=== PATIENT | male | born 1940 | race Caucasian/White ===

== ENCOUNTER 2019-05-12 07:41 | Outpatient (CLI) | payer MEDICARE, SELFPAY ==
--- NOTE | 2019-05-12 08:17 | ECG_ITS ---
NAME OF STUDY: LEXISCAN SESTAMIBI STRESS TEST INDICATION: Chest Pain PROCEDURE: At the baseline, the blood pressure was 156/89 mmHg, oxygen saturation 91% with a heart rate of 55 bpm. The electrocardiogram showed sinus bradycardia with nonspecific ST-T wave changes. Possible old anteroseptal infarct. The Lexiscan was infused over a period of 20 seconds. A total of 0.4 milligrams of Lexiscan was infused. The stress phase was continued for a total of 5 minutes. Heart rate at the end of the stress phase was 71 bpm, oxygen saturation 95% with a blood pressure 153/72 mmHg. The EKG at the peak infusion revealed no significant ST-T wave changes. Interpretation limited by baseline artifact. Sestamibi was injected 20 seconds after the Lexiscan infusion. Blood pressure at the end of the recovery phase was 162/99 mmHg, oxygen saturation 98 bpm with a heart rate of 82 beats per minute. CONCLUSION: 1. No significant EKG changes with the LexiScan infusion. Interpretation limited by baseline artifact. 2. No LexiScan induced chest pain or cardiac arrhythmia. 3. Normal blood pressure and heart rate response. 4. Sestamibi/sestamibi perfusion scan pending; see separate report. Electronically Signed On 05-12-2019 16:45:29 EDGE STAINER by Anu Casillas M.D. [email or web address]
--- NOTE | 2019-05-12 08:18 | NMCV_ITS ---
NM kim perf SPECT r/s* [id number] BlackwellJeremiah Age: 78 Gender: M : 1940 Exam Date: 05/12/2019 08:18 Ordering Phys: Judy Gama Technologist: LANA Burton Exam Location: [facility] Indications: ATHEROSCLEROTIC HEART DISEASE OF [place] CORONARY ARTERY STRESS TEST [facility] IMAGE PROTOCOL Rest/Stress 1 Lexiscan Day Radiopharmaceutical Dose (mCi) Administration Site Administered by Rest: Tc-99m 10.8 IV LANA Silva Sestamibi Stress:Tc-99m 32.4 IV LANA Silva Sestamibi Rest: 12-May-2019 60 Discovery 630 Stress: 12-May-2019 30 Discovery 630 0.4mg Lexiscan. Images obtained in supine and prone position. SPECT RESULTS Technical Quality: Excellent Raw Data Analysis: Normal Image Corrections: No attenuation or motion correction applied Summed Stress Score: 9 Summed Rest Score: 3 Summed Difference Score: 6 PERFUSION FINDINGS Medium-size area of patchy decreased tracer uptake noted in basal to distal inferior and inferolateral wall on both rest and stress images suggestive of old myocardial infarction versus artifact. FUNCTIONAL RESULTS (calculated via Gated SPECT) Stress Image LV EF (%): 68 Stress EDV (mL):78 TID: 1 Stress ESV (mL):25 Rest Image LV EF (%): 68 FUNCTIONAL FINDINGS: There is normal left ventricular systolic function. IMPRESSIONS This study is negative for ischemia. EKG segment will be documented separately. Vanessa Schofield MD (Electronically Signed) Final Date: 12 May 2019 11:54 S
[2019-05-12 08:21] VITALS: BMI 28.3
[2019-05-12] MEDS: regadenoson 0.4 Mg/5 ml Syringe IVP (09:40)
[2019-05-12 09:41] VITALS: BP 151/89; PULSE 72
[2019-05-12] MEDS: aminophylline 25 mg/mL SDV 10 mL IVP (09:46)
== END 2019-05-12 07:42 | disposition home or self-care (01) ==
PROVIDERS: Family Provider Family Medicine; PCP Family Medicine; Visit Provider Nurse Practitioner Family
DX: I25.10 Atherosclerotic heart disease of native coronary artery without angina pectoris (principal); R07.9 Chest pain, unspecified
CPT/HCPCS: 78452; 93017; 96374; A9500; J0280; J2785

== ENCOUNTER 2019-07-27 16:36 | Inpatient (IN) | payer MEDICARE, SELFPAY ==
[2019-07-27] VITALS (28 sets, daily range): BP systolic 98–162; BP diastolic 55–97; PULSE 56–78; RESP 12–28; TEMP 36.2–36.6; O2SAT 63–99; BMI 27.1
--- NOTE | 2019-07-27 16:38 | ECG_ITS ---
Measurements Intervals [place] Rate: 75 P: [place]: 0 QRS: 24 QRSD: 86 T: 54 QT: 381 QTc: 427 Sinus rhythm with artifact SEPTAL MYOCARDIAL INFARCTION , OF INDETERMINATE AGE [40+ ms Q WAVE IN V1/V2] MARKED ST ELEVATION, CONSIDER LATERAL INJURY [MARKED ST ELEVATION W/O NORMALLY INFLECTED T WAVE IN I/aVL/V5/V6] MARKED ST ELEVATION, CONSIDER INFERIOR INJURY [MARKED ST ELEVATION W/O NORMAL NORMALLY INF INFLECTED T WAVE IN II/aVF] ACUTE OK Compared to ECG 05/01/2018 15:09:25 ST (T wave) deviation now present Sinus rhythm no longer present Myocardial infarct finding still present Electronically Signed On 07-27-2019 19:46:38 CDT by Vanessa Schofield M.D. [email or web address]
[2019-07-27] MEDS: sodium chloride 0.9% 500 ML 999 ML IV (16:49)
[2019-07-27] MEDS: sodium chloride 0.9% 1,000 ML 999 ML IV (16:50)
[2019-07-27] MEDS: ondansetron 2 mg/ML SDV 2 mL 4 MG IVP ×2 (16:50→22:03)
[2019-07-27] MEDS: heparin 5,000 unit/mL INJ 1 mL 4000 UNIT IVP (16:51)
[2019-07-27] MEDS: metoprolol tartrate 1 mg/1 mL SDV 5 mL 5 MG IV (16:51)
[2019-07-27] MEDS: clopidogrel 300 mg Tablet 600 MG PO (16:51)
[2019-07-27] MEDS: morphine 4 mg/mL SDV 1 mL IVP (16:51)
--- NOTE | 2019-07-27 16:53 | PC.NURSE ---
PT STATES TOOK 325MG ASA PRIOR TO EMS ARRIVAL
--- NOTE | 2019-07-27 16:55 | XACV_ITS ---
Exam Room: [facility] Ht: 170 cm Wt: 78 kg BSA: 1.94 m2 Gender: Male : 1940 Any Known Allergies: Morphine Exam Priority: Routine Indication(s): - Acute inferior NV Procedure(s): Procedure Description: Diagnostic procedure Procedure Description: PCI procedure Procedure Description: Drug Eluting Coronary Stent Procedure Description: PTCA Procedure Description: Coronary Angiography Diagnostic Cath Status: Emergency Diagnostic Findings LM has 0% stenosis. pLAD: Severe 100% stenosis, ISAAC: 0 flow. pCIRC: Severe 100% stenosis, ISAAC: 0 flow. pRCA to mRCA: Severe 100% stenosis, ISAAC: 0 flow. RPDA: Severe 95% stenosis, ISAAC: 0 flow. Three grafts visualized. QUICK to dLAD: patent. SVG to 1st OM: 100% stenosis, ISAAC: 0 flow. SVG to RPDA: 80% stenosis, ISAAC: 2 flow. SVG to RPDA: 95% stenosis, ISAAC: 3 flow. Coronary angiography shows right dominance. PCI Status: Emergency PCI Indication: Immediate PCI for STEMI Interventional Findings RPDA: 95% stenosis treated with Drug Eluting Stent. 0% residual stenosis, ISAAC: 3 flow. SVG to RPDA: 80% stenosis treated with Drug Eluting Stent. 0% residual stenosis, ISAAC: 3 flow. For dynamic EKG changes and ST elevation in the inferior leads patient was taken to the Pump Assembler . He was found to have proximal 80% and distal 95 to 99% SVG to RPDA . Both lesions were treated with placement of drug-eluting stents as defined in the main body of the note. SVG to obtuse marginal is chronically occluded by QUICK to LAD was patent. Patient chest pain and EKG changes were resolved. He was taken back to the [facility]. Excellent angiographic result with ISAAC-3 flow was restored in SVG to PDA. Conclusions There is severe coronary artery disease with three vessel disease. one graft patent, and two grafts diseased. Patient has prior CABG. RPDA was treated with Drug Eluting Stent. SVG to RPDA was treated with Drug Eluting Stent. Recommendations 1-Return to inpatient for close monitoring and routine cath care 2-Risk factor modification for secondary prevention 3-Statin and aspirin 81 mg life--long, if tolerated 4-Patient was pre-loaded with 600 mg of Plavix, continue Plavix 75mg p.o. daily for at least one year. We will assess at the end of one year again to continue if further or not 5-Continue optimal medical management 6-Follow up with Dr. Schofield in four weeks and your primary care in 10 days . Diagnostic RX Recommendation: PCI w/o planned CABG Pressures Phase:Rest AO : 177 mmHg / 103 mmHg ( 134 mmHg ) @ 12:28:00 PM 191 mmHg / 111 mmHg ( 145 mmHg ) @ 12:37:00 PM 174 mmHg / 104 mmHg ( 136 mmHg ) @ 1:01:00 PM Clinical Evaluation EBL: 5mL-10mL Procedural Details Procedure Consent Obtained. Pre-Procedure Time Out. Identified patient by full name and date of as verbalized by the patient/guarantor. Does the consent match the physician's order: Yes. Accurate & Complete Informed Consent: Yes. If H&P is completed, is and addenduem needed: No; If yes, is the addendum complete: No. Relevant Radiology Images available: N/A Emergent. The risks, benefits, and alternatives of sedation and/or procedure were discussed by physician. The patient agrees to continue. Procedure started. [facility] Clinical Fraility Score: 4: Vulnerable. Pump Assembler Indications: ACS <= 24 hours. Chest Pain Symptom Assessment: Typical Angina Symptoms. Cardiovascular Instability: No. Correct patient, site and procedure confirmed by cath team. Current diagnosis: STEMI. PERRLA. Strong, equal hand body maker machine setter bilaterally. Lungs clear x 5 lobes. Patient's family unavailable due to current Covid-19 restrictions. Equipment: 6F - Femoral. Cardiac Cath Pack. ACIST Manifold Kit Model BT 2000. Heparinized Saline (2 units/mL), 1000 mL bag. Kit, Micropuncture. IV Site on Arrival: 18 gauge in the left anticubital. IV Site on Arrival: 22 gauge in the right hand. IV Site on Arrival: 20 gauge in the right anticubital. IV Fluids: 0.9% NaCl at KVO. 1000 mL infused prior to clinical lab assistant. Pre Procedural Pulses: bilateral dorsalis pedis was 1+. Pre Procedural Pulses: bilateral posterior tibial was 1+. Oxygen started at 2liters/min via nasal canula. bilateral groins was prepped with chloroprep then draped in the usual sterile fashion. Physician notified. Baseline sample Acquired. HR: 60 BPM. Physician arrived. Current Diagnosis : STEMI. Physician scrubbed in. Immediate Pre-Procedure Time Out. Correct Patient: Yes; Correct Procedure: Yes; Correct Site: Yes; Correct Patient Position: Yes; Correct Supplies: Yes; Dried Flammable Prep: Yes; Blood Products Available: N/A. Lidocaine 1% infiltrated to the right groin. Arterial access obtained with micropuncture set. PCI Indication: STEMI. 6 polish JR 4 guide catheter was inserted over the wire. 6 polish JR 4 guide catheter was removed over the wire. A 6 polish JL4 catheter in over wire. Multiple views taken of left coronary artery. A 6 polish JR4 catheter in over wire. SVG to OM occluded. SVG's to RCA visualized. A 6 polish JR4 catheter out over wire. [place] guidewire was advanced through the guide catheter to lesion in the SVG--> RCA. [place] Wire out. Runthrough guidewire was advanced through the guide catheter to lesion in the SVG --> RCA. Inflation Number : 1 A T Olivier SAURABH 2.25X12 QUINN -Lot Number# [id number] was prepped and advanced across the Aorta Right -> Prox RCA. The stent was deployed at 12 ESTHELA for 0:11 seconds. stent balloon out. Inflation Number : 2 A T Olivier SAURABH 3.5X26 QUINN -Lot Number# [id number] prepped and advanced across the Aorta Right -> Prox RCA. The stent was deployed at 14 ESTHELA for 0:23 seconds. Inflation number : 3 A HOLLIE MAJANO EUPHORA RX [id number] BALLOON was prepped and advanced across the Aorta Right -> Prox RCA , then inflated to 16 ESTHELA for 0:22 seconds. Inflation number: 4 The MDT GRETEL EUPHORA RX [id number] BALLOON was reinflated across the Aorta Right -> Prox RCA, to 20 ESTHELA for 0:25 seconds. Results checked. PCI Indication : Immediate PCI for STEMI. Redirecting the guide cath to the SVG --> OM. Runthrough guidewire out. Guide cath out over the wire. ACT drawn. Results 187 seconds. Therapeutic limits - pre-heparin administration 90-150 seconds and monitoring heparin during a vascular procedure >250 seconds. QUICK to LAD visualized. Catheter out over the wire. Physician scrubbed out. Sheath(s) sutured into position with 2-0 silk and sterile 4x4's and Op-site applied over the site. No oozing or signs and symptoms of hematoma noted. Arterial sheath flushed and connected to tranducer and pressure bag with heparinized saline. Post Procedure: Pulses reassessed and unchanged. PERRLA. Strong, equal hand body maker machine setter bilaterally. No VTE prophylaxis required. Medication's Wasted: Lidocaine 1% = 10 mL. Medication's Wasted: Heparin = 3000 units. Medication's Wasted: Cardene = 25 mg. Total IV fluids: 400 mL. Post-op diagnosis: STEMI. SVG--> Subtotally occluded. Complications: none. Estimated blood loss: 5mL-10mL. Procedure completed. Patient transferred by bed to ICU. Vital chart was stopped. Site: Right Femoral artery Sheath Size: 6 Fr Hemostasis Success: Unsuccessful Procedure Medications Start: 5:22 PM Stop: 5:22 PM Medication: Versed Amount: 1 mg Route: I.V. Start: 5:23 PM Stop: 5:23 PM Medication: Fentanyl Amount: 50 mcg Route: I.V. Start: 5:26 PM Stop: 5:26 PM Medication: Heparin Amount: 4000 units Route: I.V. Start: 5:38 PM Stop: 5:38 PM Medication: Versed Amount: 1 mg Route: I.V. Start: 5:38 PM Stop: 5:38 PM Medication: Fentanyl Amount: 50 mcg Route: I.V. Start: 5:41 PM Stop: 5:41 PM Medication: Aggrastat 12.5 mg/250 mL Amount: 40 ml Route: I.V. bolus Start: 5:46 PM Stop: 5:46 PM Medication: Aggrastat 12.5 mg/250 mL Amount: 14.4 ml/hr Route: I.V. drip Start: 6:02 PM Stop: 6:02 PM Medication: Versed Amount: 1 mg Route: I.V. Start: 6:11 PM Stop: 6:11 PM Medication: Heparin Amount: 2000 units Route: I.V. Start: 6:26 PM Stop: 6:26 PM Medication: Zofran (ondansetron) Amount: 4 mg Route: I.V. I, the attending physician, have reviewed and verified all procedure medications. Yes, all medications given per verbal order History/Risk Factors Hypertension: Yes Dyslipidemia: No Peripheral Arterial Disease (PAD): Yes Myocardial Infarction (NV): No Obesity: No Renal Disease: No Tobacco Use: Current/Recent(w/in 1 year) Prior Interventions PCI: No CABG: Yes Valve Surgery: No Report Signatures Finalized by:Vanessa Schofield MD on 08/10/2019 1:02:51 PM
--- NOTE | 2019-07-27 16:57 | ED_ITS ---
HPI - Chest Pain General: Chief Complaint: Chest Pain Stated Complaint: CHEST PAIN Time Seen by Provider: 07/27/19 16:57 History of Present Illness: HPI narrative: 79-year-old male was seen emergently on arrival here in the emergency room. He came in via EMS with a complaint of chest pain initial EKG showed some very subtle ST elevation that evolved and on repeat EKG and route there was clear ST elevation patient was experiencing chest pain same time he has a history of coronary artery disease. He recently had a cath and was supposed to go back to the [facility] however it is been delayed because of restrictions on elective procedures for the pandemic. Today patient had taken the Cialis and was having sex once he was completed he began to come short of breath and then had sudden onset of chest pain. He immediately called EMS. He has not received any fluids or nitrates prior to arrival he still is rating his pain as a 4 out of 10 and continue to have shortness of breath along with some nausea. MD complaint: chest pain Pertinent past history: coronary artery disease, prior AR, [employer]IP [employer] and CABG Onset (ago): minute(s) Timing of current episode: constant and still present Prior episodes: Yes Onset: during exertion and associated with drug use (Cialis) Pain location: substernal Pain radiation: left arm and left shoulder Severity: moderate Pain scale (0-10): 4 Quality: similar to prior AR Relieving factors: rest Associated symptoms: Reports nausea; Deny dyspnea or fever(s) Treatment prior to arrival: aspirin Review of Systems Const: Denies: fever(s), chills, body aches, change in appetite, fatigue or malaise ENMT: Denies: throat pain, ear or mastoid pain, nasal discharge or nasal congestion Card: Denies: chest pain, edema, dyspnea on exertion or orthopnea Resp: Denies: dyspnea, productive cough or non-productive cough GI: Reports: nausea : Denies: flank pain, dysuria, urinary frequency or urinary urgency Skin/Breast: Denies: rash or pruritus PFS ED PFSH: Medical History (Updated 07/28/19 @ 06:21 by Nba Castellon DO) Arteriosclerotic cardiovascular disease Chest pain, unspecified Essential (primary) hypertension History of myocardial infarction 2010 s/p stent Hyperlipidemia, unspecified Surgical History S/P CABG x 4 QUICK to LAD, SVG to circumflex and obtuse marginal, SVG to RCA in 1999, [place], [place] Family History Brother CAD (coronary artery disease) Hypertension Stroke Father CAD (coronary artery disease) Stroke Mother CAD (coronary artery disease) Hypertension Stroke Social History Smoking and tobacco status: never smoked Alcohol intake: never Physical Exam Const: COMMON NORMALS: no acute distress GENERAL APPEARANCE: cooperative and comfortable ORIENTATION/CONSCIOUSNESS: Yes awake, Yes oriented to person, Yes oriented to place and Yes oriented to time HENMT: COMMON NORMALS: normocephalic, atraumatic, hearing grossly normal bilaterally, external ears normal, EAC's normal, TM's normal bilaterally, Normal nasal mucous membranes and turbinates present, moist oral mucous membranes and oropharynx normal HEAD & SCALP: normocephalic and atraumatic NOSE: Normal nasal mucous membranes and turbinates present EXTERNAL EAR: Yes external ears normal EXTERNAL AUDITORY CANAL: EAC's normal TYMPANIC MEMBRANE: TM's normal bilaterally Eye: COMMON NORMALS: Equal, round and reactive pupils present, EOMs intact bilaterally, conjunctivae normal and no scleral icterus CONJUNCTIVA: Yes conjunctivae normal PUPIL: Yes Equal, round and reactive pupils present Neck/C-Spine: COMMON NORMALS: full ROM, no lymphadenopathy, supple and no JVD Lymph: LYMPHATIC: no lymphadenopathy noted and no lymphedema noted Resp: COMMON NORMALS: normal respiratory effort, No retractions, No use of accessory muscles and clear to auscultation bilaterally AUSCULTATION: clear to auscultation bilaterally Cardio: COMMON NORMALS: no JVD, regular rate, regular rhythm and No murmurs present (Cardio) RATE: regular rate RHYTHM: regular rhythm GI: COMMON NORMALS: Soft to palpation and No hepatosplenomegaly present AUSCULTATION: Yes normoactive bowel sounds PALPATION: Yes Soft to palpation, No Tenderness to palpation present (GI), No Guarding due to palpation present (GI) and Yes No hepatosplenomegaly present Extremity: COMMON NORMALS: normal to inspection, capillary refill normal, no clubbing, cyanosis or edema, no calf tenderness and no pedal edema Neuro: SENSORIUM/ORIENTATION: Yes oriented to person, Yes oriented to place and Yes oriented to time Skin: COMMON NORMALS: no rashes or lesions noted GENERAL SKIN EXAM: no rashes or lesions noted Course Vital Signs: Vital signs: Vital Signs Temperature 98.2 F 07/28/19 06:00 Pulse Rate 60 07/28/19 06:00 Respiratory Rate 13 07/28/19 06:00 Blood Pressure 122/66 07/28/19 06:00 Pulse Oximetry 95 07/28/19 06:00 MDM - Chest Pain MDM Narrative: Medical decision making narrative: STEMI in the infereolateral distribution. Pt continuing to have pain. Pradip has seen the pt and is planning to take him to the liaison inspection laboratory assistant emergently. Lab Data: Labs: Lab Results 07/27/19 07/27/19 07/27/19 Range/Units 16:44 16:44 16:44 WBC 6.3 (4.0-10.0) 10^3/ uL RBC 5.08 (4.1-5.3) 10^6/u L Hgb 15.3 (11.7-16.6) g/dL Hct 45.7 (42.0-52.0) % MCV 90.0 (80-94) fL MCH 30.1 (28.0-34.0) pg MCHC 33.5 (30.0-36.0) g/dL RDW 12.6 (12.1-15.1) % Plt Count 189 (130-400) 10^3/c mm MPV 10.3 (7.4-10.4) fL Neut % (Auto) 55.1 % Lymph % (Auto) 33.1 % [place] % (Auto) 8.1 % Eos % (Auto) 2.5 % Baso % (Auto) 0.6 % Neut # (Auto) 3.5 (1.8-7.7) 10^3/u L Lymph # (Auto) 2.1 (0.8-4.8) 10^3/u L [place] # (Auto) 0.5 (0.2-0.9) 10^3/u L Eos # (Auto) 0.2 (0.0-0.8) 10^3/u L Baso # (Auto) 0.0 (0.0-0.1) 10^3/u L Nucleated RBC % (a uto) 0 % Nucleated RBCs # 0.0 /100WBC PT 13.70 H (10.5-13.3) SECO NDS INR 1.02 (0.8-1.2) Sodium 140 (136-145) mmol/L Potassium 3.4 L (3.5-5.1) mmol/L Chloride 102 (98-107) mmol/L Carbon Dioxide 16 L (22-29) mmol/L Anion Gap 25.4 H (5-19) BUN 19 (8-23) mg/dL Creatinine 1.4 H (0.7-1.2) mg/dL Glucose 155 H (65-115) mg/dL Calculated Osmolal ity 290 (285-295) mOsm/k g Calcium 9.3 (8.5-10.5) mg/dL Total Bilirubin 0.6 (0.15-1.2) mg/dL AST 17 (0-40) U/L ALT 16 (0-41) U/L Alkaline Phosphata se 46 (40-130) IU/L Troponin T Baselin e (0-15) ng/mL Total Protein 7.1 (6.6-8.7) g/dL Albumin 4.5 (3.5-5.2) g/dL Globulin 2.6 (1.3-4.6) g/dL 07/27/19 Range/Units 16:44 WBC (4.0-10.0) 10^3/ uL RBC (4.1-5.3) 10^6/u L Hgb (11.7-16.6) g/dL Hct (42.0-52.0) % MCV (80-94) fL MCH (28.0-34.0) pg MCHC (30.0-36.0) g/dL RDW (12.1-15.1) % Plt Count (130-400) 10^3/c mm MPV (7.4-10.4) fL Neut % (Auto) % Lymph % (Auto) % [place] % (Auto) % Eos % (Auto) % Baso % (Auto) % Neut # (Auto) (1.8-7.7) 10^3/u L Lymph # (Auto) (0.8-4.8) 10^3/u L [place] # (Auto) (0.2-0.9) 10^3/u L Eos # (Auto) (0.0-0.8) 10^3/u L Baso # (Auto) (0.0-0.1) 10^3/u L Nucleated RBC % (a uto) % Nucleated RBCs # /100WBC PT (10.5-13.3) SECO NDS INR (0.8-1.2) Sodium (136-145) mmol/L Potassium (3.5-5.1) mmol/L Chloride (98-107) mmol/L Carbon Dioxide (22-29) mmol/L Anion Gap (5-19) BUN (8-23) mg/dL Creatinine (0.7-1.2) mg/dL Glucose (65-115) mg/dL Calculated Osmolal ity (285-295) mOsm/k g Calcium (8.5-10.5) mg/dL Total Bilirubin (0.15-1.2) mg/dL AST (0-40) U/L ALT (0-41) U/L Alkaline Phosphata se (40-130) IU/L Troponin T Baselin e 20 H (0-15) ng/mL Total Protein (6.6-8.7) g/dL Albumin (3.5-5.2) g/dL Globulin (1.3-4.6) g/dL Critical Care Time Critical Care Time: Critical Care Time: Yes Total Critical Care Time: 30 Attestation: This case had a high probability of a clinically significant, sudden, or life threatening deterioration of this patient's condition which required my full and direct attention, intervention and personal management. Discharge Plan Discharge Patient Disposition: Admitted As Inpatient Admit Provider: Vanessa Schofield Clinical Impression: ST elevation AR (STEMI) Condition: Stable Referrals: Cristopher Carter MD [Primary Care Provider] - Interventions: ED Discharge Assessment Last Done: 07/27/19 17:18 ED Charges Last Done: 07/27/19 17:18 Discharge Date/Time: 07/27/19 18:10 Coding Level of Care Code ED Environment Coordinator for Chg Fwd Exam Comprehensive
[2019-07-27 16:58] LABS: Basophils % 0.6 %; Eosinophils # 0.2 10^3/uL (0.0-0.8); Eosinophils % 2.5 %; Hematocrit 45.7 % (42.0-52.0); Hemoglobin 15.3 g/dL (11.7-16.6); Lymphocytes # 2.1 10^3/uL (0.8-4.8); Lymphocytes % 33.1 %; Mean Corpuscular HGB Conc 33.5 g/dL (30.0-36.0); Mean Corpuscular Hemoglobin 30.1 pg (28.0-34.0); Mean Platelet Volume 10.3 fL (7.4-10.4); Monocytes # 0.5 10^3/uL (0.2-0.9); Monocytes % 8.1 %; Neutrophils # 3.5 10^3/uL (1.8-7.7); Neutrophils % 55.1 %; Nucleated Red Blood Cells % 0 %; Platelet Count 189 10^3/cmm (130-400); Red Blood Count 5.08 10^6/uL (4.1-5.3); Red Cell Distribution Width 12.6 % (12.1-15.1); White Blood Count 6.3 10^3/uL (4.0-10.0)
--- NOTE | 2019-07-27 16:59 | PM.HP ---
Providers/Chief Complaint Primary Care Provider: Cristopher Carter MD Chief Complaint: Stemi History of Present Illness Jeremiah Blackwell is a 79 year old male past medical history of hypertension, dyslipidemia, CAD status post CABG ?4 in 1999 in [place] with history of stent after DC in 2010, obstructive sleep apnea on CPAP, fibromyalgia, CKD stage III presented with chest pain soon after performing intercourse when chest pain did not relieve he called immediately 911. He admits to taking Cialis 1 hour before the intercourse. Initial cardiac strips were not of much concern however since chest pain continued third EKG performed by the EMS showed inferolateral slight ST elevation. It is the reason ST elevation DC was called. I saw the patient in the emergency room. He continues to have active chest pain. I know him from my clinic as he had angiogram nearly 1 year ago showed patent previously placed QUICK to LAD, SVG to circumflex and obtuse marginal and SVG to RCA with 50% stenosis proximal and mid. In the past couple of months patient has been progressively getting fatigue and short of breath. He was in process of getting scheduled for angiogram but due to COVID situation it was. Medications/Allergies Home Medications Medication Instructions Recorded Confirmed Last Taken Type aspirin 325 mg tablet,delayed 325 mg PO DAILY tab 03/26/19 07/28/19 07/27/19 08:00 History release diltiazem HCl 120 mg 120 mg PO DAILY cap 03/26/19 07/28/19 07/27/19 08:00 History capsule,extended release 12 hr multivitamin 1 cap PO QAM 03/26/19 07/28/19 07/27/19 History nitroglycerin 0.4 mg sublingual 0.4 mg SUBLINGUAL Q5M PRN 03/26/19 07/28/19 Unknown History tablet ascorbate calcium (vitamin C) 500 500 mg PO DAILY 04/29/19 06/02/19 Unknown History mg tablet carvedilol 6.25 mg tablet 6.25 mg PO BID 04/29/19 07/28/19 2 Weeks Ago History ~07/14/19 cholecalciferol (vitamin D3) 50 2,000 unit PO DAILY 04/29/19 06/02/19 Unknown History mcg (2,000 unit) tablet isosorbide mononitrate 30 mg 30 mg PO BID #60 tab 05/18/19 07/28/19 07/27/19 Rx tablet,extended release 24 hr testosterone cypionate 100 mg/mL 100 mg IM DAILY ml 06/02/19 07/28/19 07/27/19 History intramuscular oil 0800 losartan 150 mg PO DAILY 07/28/19 07/28/19 07/27/19 08:00 History sildenafil 100 mg PO DIRECTED PRN 07/28/19 07/28/19 07/26/19 20:00 History Allergies Allergy/AdvReac Type Severity Reaction Status Date / Time morphine Allergy RAPID Verified 07/27/19 16:46 PULSE, NUMBNESS PFSH Acute PFSH: Medical History (Updated 07/28/19 @ 06:21 by Nba Castellon DO) Arteriosclerotic cardiovascular disease Chest pain, unspecified Essential (primary) hypertension History of myocardial infarction 2010 s/p stent Hyperlipidemia, unspecified Surgical History S/P CABG x 4 QUICK to LAD, SVG to circumflex and obtuse marginal, SVG to RCA in 1999, [place], [place] Family History Brother CAD (coronary artery disease) Hypertension Stroke Father CAD (coronary artery disease) Stroke Mother CAD (coronary artery disease) Hypertension Stroke Social History Smoking and tobacco status: never smoked Alcohol intake: never Vitals/I&O/Wt Last Vital Signs Temp 97.8 F 07/27/19 16:47 Pulse 78 07/27/19 16:47 Resp 22 H 07/27/19 16:51 BP 162/97 07/27/19 16:47 Pulse Ox 96 07/27/19 16:47 Weight last 48 hrs Weight 173 lb Physical Exam Narrative: EXAM NARRATIVE: GENERAL: Patient is alert, awake and oriented x3. Moderate distress NECK: No jugular vein distension. HEENT: No cyanosis. No icterus. No pallor. HEART: Regular S1 and S2. No murmur, rub or gallop. LUNGS: Clear to auscultate bilaterally. ABDOMEN: Soft, nontender and nondistended. Positive bowel sounds. No guarding, rebound or tenderness. CENTRAL NERVOUS SYSTEM: Grossly nonfocal. EXTREMITIES: Lower extremities without edema bilaterally. Data : 07/28/19 04:10 07/28/19 04:10 A&P Assessment and plan (1) Chronic kidney disease (CKD): Patient has known CKD. And this time of emergency we will proceed with emergent angiogram and PCI if indicated. Patient understands risk of contrast-induced nephropathy leading to transient or permanent renal failure. He would like to proceed with it. Status: Chronic (2) Hyperlipidemia, unspecified: On statin will continue Status: Acute (3) Essential (primary) hypertension: Moderately elevated. Nitroglycerin is contraindicated at this point due to Cialis on board. Status: Acute (4) ST elevation [place] (STEMI): Will proceed with emergent left heart cath and PCI if indicated. He will be loaded with Plavix, heparin and aspirin. Further plan will be advised as per progress of the patient. Status: Acute Attestations Medical Necessity Statement*: I am expecting her stay to cross more than 2 midnight Coding Level of Care Code New Pt Acute Roofing Superintendent for g Fwd Patient Type New Medical Decision Making High Complexity Diagnoses Chronic kidney disease (CKD) N18.9 Hyperlipidemia, unspecified E78.5 Essential (primary) hypertension I10 ST elevation [place] (STEMI) I21.3
[2019-07-27 17:07] LABS: INR 1.02 (0.8-1.2)
[2019-07-27 17:12] LABS: Alanine Aminotransferase 16 U/L (0-41); Albumin Level 4.5 g/dL (3.5-5.2); Alkaline Phosphatase 46 IU/L (40-130); Anion Gap 25.4 (5-19); Aspartate Amino Transferase 17 U/L (0-40); Blood Urea Nitrogen 19 mg/dL (8-23); Calcium 9.3 mg/dL (8.5-10.5); Carbon Dioxide 16 mmol/L (22-29); Chloride 102 mmol/L (98-107); Creatinine Clr Calc Pharmacy 43.7004; Globulin 2.6 g/dL (1.3-4.6); Glucose 155 mg/dL (65-115); Osmolality Calculated 290 mOsm/kg (285-295); Potassium 3.4 mmol/L (3.5-5.1); Sodium 140 mmol/L (136-145); Total Bilirubin 0.6 mg/dL (0.15-1.2); Total Protein 7.1 g/dL (6.6-8.7)
[2019-07-27 17:13] LABS: Troponin(5th) Baseline 20 ng/mL (0-15)
--- NOTE | 2019-07-27 17:14 | W.PM.OPSUD ---
Surgery/Procedure H&P Update DATE OF PROCEDURE: July 27, 2019 DATE H&P PERFORMED: 07/27/19 H&P UPDATE INFORMATION: I have reviewed H&P completed within last 30 days PREOP DIAGNOSIS: ST elevation [place] PATIENT REASSESSED PRIOR TO SEDATION, WITH NO CHANGE NOTED: Yes PHYSICAL EXAM: alert, oriented x 3, clear to auscultation bilaterally and regular rate & rhythm AIRWAY EVAL/ANESTHESIA PLAN: normal airway, ASA II and Risks, benefits & alternatives of sedation and/or procedure discussed
--- NOTE | 2019-07-27 18:45 | XRR_ITS ---
PROCEDURE INFORMATION: Exam: XR Chest, 1 View Exam date and time: 07/27/2019 6:46 PM Age: 79 years old Clinical indication: Other: Hypoxia; Prior surgery; Additional info: Hypoxia, S/P angiogram TECHNIQUE: Imaging protocol: XR of the chest Views: 1 view. COMPARISON: CR Chest 1 view [id number] 05/01/2018 9:53 AM FINDINGS: Lungs: Bilateral diffuse interstitial lung disease with findings suggesting diffuse interstitial edema. Findings of associated central pulmonary hyperemia. Evidence of antecedent granulomatous disease with calcified granulomas. Pleural space: No visible pleural effusion. No pneumothorax. Heart/Mediastinum: Status post sternotomy chest. Cardiomegaly. Tortuous thoracic aorta which can be seen in hypertensive cardiovascular disease. Bones/joints: Unremarkable. XR/XR chest 1V portable [id number] IMPRESSION: Bilateral diffuse interstitial edema.
[2019-07-27 19:46] LABS: Troponin 5 2HR 101.5 ng/mL (0-15); Troponin 5 2HR Delta 81.5 ABS# (0-10)
[2019-07-27 20:59] LABS: Partial Thromboplastin Time 130.1 SECONDS (23.9-36.7)
[2019-07-27 23:29] LABS: Troponin 5 6HR 688.4 ng/mL (0-15); Troponin 5 6HR Delta 668.4 ng/L (0-12)
[2019-07-27 23:30] LABS: Partial Thromboplastin Time 22.7 SECONDS (23.9-36.7)
[2019-07-28] VITALS (46 sets, daily range): BP systolic 118–178; BP diastolic 62–91; PULSE 58–89; RESP 11–26; TEMP 36.7–36.8; O2SAT 93–100
[2019-07-28] MEDS: fentaNYL 50 mcg/mL INJ 2mL 25 MCG IVP ×2 (00:31→05:49)
--- NOTE | 2019-07-28 00:47 | PC.NURSE ---
Sheath pull Right femoral arterial sheath pulled at this time. 25mcg of IV fentanyl administered prior to removal. Pressure held for 20 minutes until hemostasis achieved. Applied dry sterile dressing. No signs of bleeding or hematoma formation. Site asymptomatic. Right pedal pulses palpated strong. Pt tolerated well.
[2019-07-28] MEDS: alum-mag-hydroxide-sime 30 mL UDC PO (03:05)
[2019-07-28] MEDS: metoprolol tartrate 25 mg Tablet 12.5 MG PO (04:30)
--- NOTE | 2019-07-28 04:30 | PC.NURSE ---
Addendum entered by Jeanine Strickland RN 07/28/19 06:20: 12 Lead EKG sent to DR. Schofield at this time, no new concerns regarding EKG. Original Note: Symptomatic CP Pt reports Chest pressure 4/5 on pain scale. Denies radiation. Complains of light headedness and nausea. Vitals assessed BP 167/82 HR 68. No changes seen on bedside lunchroom monitor. Remains SR/SB with slight but improved ST elevation and occasional PVC. Bedside 12 lead EKG completed at this time. Dr. Schofield notified by phone and received verbal orders for 12.5 po metoprolol, 1 nitropaste ( pull off if SBP <100). Clarified Nitropaste with pt taking sildenafil night of 07/25, okayed. Will continue to monitor.
[2019-07-28] MEDS: nitroglycerin 1 gm/inch oint Pkt 1 INCH (04:35)
--- NOTE | 2019-07-28 05:00 | PC.NURSE ---
CP/Nausea Continues to complain of chest pressure 5/10, nausea, and lightheadness. V/s reviewed and Dr. Schofield notified via phone, received orders for additional 4mg zofran IV now, protonix 40mg IV now, and 25mg fentanyl IVP now.
[2019-07-28] MEDS: ondansetron 2 mg/ML SDV 2 mL 4 MG IVP ×2 (05:05→05:50)
--- NOTE | 2019-07-28 05:15 | PC.NURSE ---
Cardiac Rhythm Changes to rhythm on bedside awake overnight monitor. 10 seconds of suspected atrial fib, irregular rhythm with absent p waves and wide QRS complex. Copy of event put in chart. Returned to SR/SB.
--- NOTE | 2019-07-28 05:40 | ECG_ITS ---
Measurements Intervals [place] Rate: 66 P: 51 [place]: 181 QRS: -3 QRSD: 89 T: 70 QT: 403 QTc: 424 SINUS RHYTHM INFERIOR MYOCARDIAL INFARCTION [40+ ms Q WAVE AND/OR ST/T ABNORMALITY IN II/aVF], OF INDETERMINATE AGE INTERPRETATION BASED ON A DEFAULT AGE OF 40 YEARS Compared to ECG 07/27/2019 16:45:02 ST (T wave) deviation no longer present Myocardial infarct finding still present Electronically Signed On 07-28-2019 20:34:57 CDT by Janet Patrick M.D. [email or web address]
[2019-07-28] MEDS: pantoprazole 40 mg SDV IVP (05:49)
[2019-07-28 05:59] LABS: Basophils % 0.3 %; Eosinophils % 0.1 %; Hematocrit 41.8 % (42.0-52.0); Hemoglobin 12.9 g/dL (11.7-16.6); Lymphocytes # 0.6 10^3/uL (0.8-4.8); Lymphocytes % 8.6 %; Mean Corpuscular HGB Conc 30.9 g/dL (30.0-36.0); Mean Corpuscular Hemoglobin 29.5 pg (28.0-34.0); Mean Corpuscular Volume 95.7 fL (80-94); Mean Platelet Volume 10.5 fL (7.4-10.4); Monocytes # 0.6 10^3/uL (0.2-0.9); Neutrophils # 6.2 10^3/uL (1.8-7.7); Neutrophils % 82.6 %; Nucleated Red Blood Cells % 0 %; Platelet Count 147 10^3/cmm (130-400); Red Blood Count 4.37 10^6/uL (4.1-5.3); White Blood Count 7.5 10^3/uL (4.0-10.0)
[2019-07-28 06:18] LABS: Blood Urea Nitrogen 15 mg/dL (8-23); Carbon Dioxide 20 mmol/L (22-29); Chloride 106 mmol/L (98-107); Glucose 153 mg/dL (65-115); Osmolality Calculated 285 mOsm/kg (285-295); Sodium 138 mmol/L (136-145)
[2019-07-28] MEDS: aspirin 81 mg EC Tablet PO (09:07)
[2019-07-28] MEDS: promethazine 25 mg/mL SDV 1 mL 12.5 MG IM (09:07)
[2019-07-28] MEDS: FUROsemide 10 mg/mL SDV 10mL 60 MG IVP (09:07)
[2019-07-28] MEDS: clopidogrel 75 mg Tablet PO (09:23)
[2019-07-28] MEDS: enoxaparin 40 mg/0.4 mL Syringe SUBCUT (09:23)
--- NOTE | 2019-07-28 12:55 | USCV_ITS ---
Jeremiah Blackwell Age: 79 Gender: M : 1940 Exam Date: 07/28/2019 16:12 Ordering Phys: Vanessa Schofield MD ([email or web address]) Technologist: [place] [facility] [place]: [place]I BP: 152 / 76 HR: 67 Rhythm: Sinus Technical Quality: Adequate MEASUREMENTS (Male / Female) Normal Values 2D ECHO LV Diastolic Diameter PLAX 4.3 cm 4.2 - 5.9 / 3.9 - 5.3 cm LV Systolic Diameter PLAX 2.6 cm IVS Diastolic Thickness 1.1 cm 0.6 - 1.0 / 0.6 - 0.9 cm IVS Systolic Thickness 1.5 cm LVPW Diastolic Thickness 0.9 cm 0.6 - 1.0 / 0.6 - 0.9 cm LVPW Systolic Thickness 1.5 cm LVOT Diameter 2.1 cm LV Ejection Fraction 2D Teich 70.3 % LV Ejection Fraction MOD 2C 66.9 % LV Ejection Fraction 2C AL 66.2 % LA Diameter 5.7 cm LA Width 4.2 cm LA Height 4.6 cm RA Width 3.3 cm RA Height 4.1 cm Aorta at Sinotubular Diameter 3.0 cm M-MODE LV Diastolic Diameter MM 4.7 cm 4.2 - 5.9 / 3.9 - 5.3 cm LV Systolic Diameter MM 3.0 cm LV Ejection Fraction MM Teich 65.3 % IVS Diastolic Thickness MM 0.9 cm 0.6 - 1.0 / 0.6 - 0.9 cm IVS Systolic Thickness MM 1.8 cm LVPW Diastolic Thickness MM 1.4 cm 0.6 - 1.0 / 0.6 - 0.9 cm LVPW Systolic Thickness MM 1.8 cm RV Diastolic Diameter MM 1.7 cm Aortic Annulus Diameter 4.1 cm LA Ao Ratio MM 1.4 MV E Point Septal Separation 1.2 cm DOPPLER AV Peak Velocity 132.0 cm/s LVOT Peak Velocity 112.0 cm/s AV Area Cont Eq vti 3.3 cm squared AV Area Cont Eq pk 2.9 cm squared MV Area PHT 5.0 cm squared Mitral E to A Ratio 1.1 MV E' Velocity 7.0 cm/s Mitral E to MV E' Ratio 14.4 Mitral E to LV E' Lateral Ratio 13.1 Mitral E to LV E' Septal Ratio 15.9 TR Peak Velocity 192.0 cm/s TR Peak Gradient 14.7 mmHg TV Peak E Velocity 98.0 cm/s Right Atrial Pressure 3.0 mmHg Pulmonary Artery Systolic Pressu 17.7 mmHg FINDINGS Left Ventricle Normal left ventricular cavity size. Normal left ventricular systolic function. No regional wall motion abnormalities. Left ventricular ejection fraction is estimated at 65 %. Grade II/IV diastolic dysfunction, moderately elevated filling pressures. Right Ventricle The right ventricle is normal in size and function. Right Atrium The right atrium is normal in size. Left Atrium The left atrium is normal in size. Mitral Valve Moderately thickened mitral valve. No mitral valve stenosis. Moderate mitral annular calcification. Aortic Valve Moderate aortic valve calcification. No aortic valve stenosis. Trace aortic valve regurgitation. Tricuspid Valve Structurally normal tricuspid valve without significant stenosis or regurgitation. Pulmonary artery systolic pressure is normal. Pulmonic Valve Structurally normal pulmonic valve without significant stenosis. There is no pulmonic regurgitation. Pericardium Normal pericardium without effusion. Aorta Normal ascending aorta dimension. CONCLUSIONS 1-Normal left ventricular cavity size. Normal left ventricular systolic function. No regional wall motion abnormalities. Left ventricular ejection fraction is estimated at 65 %. Grade II/IV diastolic dysfunction, moderately elevated filling pressures. 2-There is no pericardial effusion. 3-No significant valve abnormalities. 4-Pulmonary artery systolic pressure is within normal limits. 5-Right atrial pressure is around 5 mm of mercury. 6-No significant change since the prior echocardiogram study of 05/01/2018. Vanessa Schofield MD (Electronically Signed) Final Date: 30 Jul 2019 19:29 S
[2019-07-28] MEDS: carvedilol 6.25 mg Tablet PO (17:56)
--- NOTE | 2019-07-28 19:20 | PM.PN ---
Subjective Subjective: Interval history: Patient continues to have off-and-on chest pressure. He was short of breath and appeared to be depressed. X-ray chest is consistent with pulmonary edema Vitals/I&O/Wt Last Vital Signs Temp 98.2 F 07/28/19 06:00 Pulse 77 07/28/19 18:00 Resp 14 07/28/19 14:00 BP 137/69 07/28/19 18:00 Pulse Ox 94 07/28/19 18:00 07/28/19 07/28/19 07/28/19 06:59 14:59 22:59 Output Total 525 / 1050 1000 / 1000 400 / 1400 Balance -525 / -1050 -1000 / -1000 -400 / -1400 Weight last 48 hrs Weight 173 lb Physical Exam Narrative: EXAM NARRATIVE: GENERAL: Patient is alert, awake and oriented x3. Mildly distressed NECK: No jugular vein distension. HEENT: No cyanosis. No icterus. No pallor. HEART: Regular S1 and S2. No murmur, rub or gallop. LUNGS: Inspiratory crackle bilaterally. ABDOMEN: Soft, nontender and nondistended. Positive bowel sounds. No guarding, rebound or tenderness. CENTRAL NERVOUS SYSTEM: Grossly nonfocal. EXTREMITIES: Lower extremities without edema bilaterally. Const: COMMON NORMALS: alert Resp: COMMON NORMALS: clear to auscultation bilaterally AUSCULTATION: clear to auscultation bilaterally Neuro: SENSORIUM/ORIENTATION: Yes alert Data : 07/28/19 04:10 07/28/19 04:10 A&P Assessment and plan (1) Chronic kidney disease (CKD): After IV fluid rate has improved Status: Chronic (2) Hyperlipidemia, unspecified: On statin will continue Status: Acute (3) Essential (primary) hypertension: Moderately elevated. Nitroglycerin is contraindicated at this point due to Cialis on board. Status: Acute (4) ST elevation [place] (STEMI): Status post stent to proximal and distal SVG to RCA. ST elevation has resolved. Patient continues to have some chest pressure could be from thromboembolic or secondary to pulmonary edema. We will continue to diurese and optimize medicine. Continue Plavix continue beta-ezio Status: Acute (5) CHF (congestive heart failure): Patient appears of decompensated heart failure we will start IV diuresis. Status: Acute Attestations Medical Necessity Statement*: Patient require continuation hospitalization for above defined care Coding Level of Care Code Established Pt Acute Administrative Volunteer for Chg Fwd Patient Type Established History Expanded Problem Focused Exam Expanded Problem Focused Medical Decision Making Moderate Complexity Diagnoses Chronic kidney disease (CKD) N18.9 Hyperlipidemia, unspecified E78.5 Essential (primary) hypertension I10 ST elevation [place] (STEMI) I21.3 CHF (congestive heart failure) I50.9
[2019-07-28] MEDS: FUROsemide 10 mg/mL SDV 4mL 40 MG IVP (20:49)
[2019-07-28] MEDS: temazepam 15 mg Capsule PO (21:00)
[2019-07-29] VITALS (18 sets, daily range): BP systolic 106–150; BP diastolic 60–94; PULSE 86–100; RESP 3–33; TEMP 36.6–37.6; O2SAT 88–98
[2019-07-29 04:27] LABS: Anion Gap 15.6 (5-19); Blood Urea Nitrogen 15 mg/dL (8-23); Calcium 8.8 mg/dL (8.5-10.5); Carbon Dioxide 23 mmol/L (22-29); Chloride 106 mmol/L (98-107); Glucose 144 mg/dL (65-115); Osmolality Calculated 291 mOsm/kg (285-295); Potassium 3.6 mmol/L (3.5-5.1); Sodium 141 mmol/L (136-145)
--- NOTE | 2019-07-29 05:00 | XR_ITS ---
WS: [id number] PORTABLE CHEST HISTORY: fluid overload COMPARISON: 07/27/2019 Prior CABG. Significant improvement in aeration of both lungs since the prior study. Marked improvement in the co nsolidations and fluid overload. No pleural effusion or pneumothorax. Cardiac size: Mildly enlarged cardiac silhouette. Mediastinum/Aorta: Mild atherosclerosis aorta. Mediastinal widening has improved. No osseous abnormality seen. XR/XR chest 1V portable [id number] IMPRESSION: Marked improvement in aeration bilaterally. Consistent persistent mild intersti tial thickening.
[2019-07-29] MEDS: nitroglycerin 0.4 mg sublingual Tablet SUBLINGUAL ×2 (07:48→08:02)
[2019-07-29] MEDS: ondansetron 2 mg/ML SDV 2 mL 4 MG IVP (07:49)
--- NOTE | 2019-07-29 07:56 | PC.NURSE ---
Addendum entered by Kimberli Crandall RN 07/29/19 08:25: Pt alos c/o of hiccups. Original Note: Pt c/o of chest pain and nausea, 09/23. Nitro 0.4 sublingual and Zofran 4mg IV admin. O2 sats flucuating 87-92%, probe changed sats at 90% O2 at 2lpm/Nc applied.
--- NOTE | 2019-07-29 08:02 | PC.NURSE ---
chest pain rated 4/10. Second Nitro admin sublingual.
[2019-07-29] MEDS: carvedilol 6.25 mg Tablet PO ×2 (08:21→17:59)
[2019-07-29] MEDS: aspirin 81 mg EC Tablet PO (08:21)
[2019-07-29] MEDS: clopidogrel 75 mg Tablet PO (08:22)
[2019-07-29] MEDS: enoxaparin 40 mg/0.4 mL Syringe SUBCUT (08:22)
[2019-07-29] MEDS: isosorbide mononitrate ER 30 mg Tablet PO (12:49)
--- NOTE | 2019-07-29 18:11 | PM.PN ---
Subjective Subjective: Interval history: Denies any complaint Vitals/I&O/Wt Last Vital Signs Temp 99.2 F 07/31/19 14:50 Pulse 91 07/31/19 14:50 Resp 16 07/31/19 14:50 BP 100/61 07/31/19 14:50 Pulse Ox 92 07/31/19 14:50 Physical Exam Narrative: EXAM NARRATIVE: GENERAL: Patient is alert, awake and oriented x3. NECK: No jugular vein distension. HEENT: No cyanosis. No icterus. No pallor. HEART: Regular S1 and S2. No murmur, rub or gallop. LUNGS: Clear to auscultate bilaterally. ABDOMEN: Soft, nontender and nondistended. Positive bowel sounds. No guarding, rebound or tenderness. CENTRAL NERVOUS SYSTEM: Grossly nonfocal. EXTREMITIES: Lower extremities without edema bilaterally. Const: COMMON NORMALS: alert Resp: COMMON NORMALS: clear to auscultation bilaterally AUSCULTATION: clear to auscultation bilaterally Neuro: SENSORIUM/ORIENTATION: Yes alert Data : 07/28/19 04:10 07/29/19 03:35 A&P Assessment and plan (1) Chronic kidney disease (CKD): Stable. Continue BMP in the Status: Chronic (2) Hyperlipidemia, unspecified: On statin will continue Status: Acute (3) Essential (primary) hypertension: Blood pressure improved. It is well controlled now Status: Acute (4) ST elevation [place] (STEMI): Post PCI to distal and proximal SVG to RCA. Continue current regimen. Continue beta-ezio aspirin statin and Plavix Status: Resolved (5) CHF (congestive heart failure): Continues to be compensated. I will see patient on oral Lasix Status: Resolved (6) Hiccup: Patient continues to have hiccups which is very bothersome we will start him on baclofen. Status: Acute Attestations Medical Necessity Statement*: Require continuation hospitalization for above defined care. Coding Level of Care Code Acute Cutting Room Supervisor for Chg Fwd Exam Expanded Problem Focused Diagnoses Chronic kidney disease (CKD) N18.9 Hyperlipidemia, unspecified E78.5 Essential (primary) hypertension I10 ST elevation [place] (STEMI) I21.3 CHF (congestive heart failure) I50.9 Hiccup R06.6
--- NOTE | 2019-07-29 18:25 | PC.NURSE ---
O2 saturation: Pt had oxygen off, O2 sats 87%, re-administered Nasal cannula, 1.5 lpm, sats improved to 92%.
[2019-07-29] MEDS: temazepam 15 mg Capsule PO (20:54)
[2019-07-29] MEDS: ALPRAZolam 0.25 mg Tablet PO (20:54)
[2019-07-30] VITALS (16 sets, daily range): BP systolic 83–142; BP diastolic 60–85; PULSE 88–101; RESP 17–33; TEMP 36.6–37.3; O2SAT 90–98
--- NOTE | 2019-07-30 05:24 | PC.NURSE ---
patient has had uneventful night rested well. vs wnl no cardiac ectopy noted. voiding per urinal. may transfer to med surg per Dr. Machuca when bed available. patient denies any concerns tonight and appears to be in better spirits tonight as he seemed down last night.
[2019-07-30] MEDS: ondansetron 2 mg/ML SDV 2 mL 4 MG IVP (08:52)
[2019-07-30] MEDS: aspirin 81 mg EC Tablet PO (09:37)
[2019-07-30] MEDS: carvedilol 6.25 mg Tablet PO ×2 (09:37→17:29)
[2019-07-30] MEDS: clopidogrel 75 mg Tablet PO (09:37)
[2019-07-30] MEDS: isosorbide mononitrate ER 30 mg Tablet PO (09:37)
[2019-07-30] MEDS: enoxaparin 40 mg/0.4 mL Syringe SUBCUT (09:37)
--- NOTE | 2019-07-30 10:28 | PC.SOCIAL ---
IMM Update Pg 2 of IMM given and explained to patient who verbalized understanding. Signed, dated, and timed, and placed in chart. Copy provided to patient.
--- NOTE | 2019-07-30 10:44 | PC.NURSE ---
nausea prior and hiccups zofran given resting with eyes closed at this time
[2019-07-30] MEDS: metoclopramide 10 mg Tablet PO (12:18)
[2019-07-30] MEDS: baclofen 10 mg Tablet PO ×2 (14:55→21:15)
--- NOTE | 2019-07-30 17:47 | P.PN_ITS ---
Subjective Subjective: Interval history: Slept well feeling much better except continues to have hiccups Vitals/I&O/Wt Last Vital Signs Temp 99.2 F 07/30/19 05:27 Pulse 97 07/30/19 16:00 Resp 29 H 07/30/19 16:00 BP 112/71 07/30/19 16:00 Pulse Ox 94 07/30/19 10:22 07/30/19 07/30/19 07/30/19 06:59 14:59 22:59 Intake Total 480 / 1630 700 / 700 600 / 1300 Output Total 800 / 1775 400 / 400 300 / 700 Balance -320 / -145 300 / 300 300 / 600 Physical Exam Narrative: EXAM NARRATIVE: GENERAL: Patient is alert, awake and oriented x3. Hiccups NECK: No jugular vein distension. HEENT: No cyanosis. No icterus. No pallor. HEART: irregularly S1 and S2. No murmur, rub or gallop. LUNGS: Inspiratory crackle bilaterally. ABDOMEN: Soft, nontender and nondistended. Positive bowel sounds. No guarding, rebound or tenderness. CENTRAL NERVOUS SYSTEM: Grossly nonfocal. EXTREMITIES: Lower extremities without edema bilaterally. Const: COMMON NORMALS: alert Resp: COMMON NORMALS: clear to auscultation bilaterally AUSCULTATION: clear to auscultation bilaterally Neuro: SENSORIUM/ORIENTATION: Yes alert Data : 07/28/19 04:10 07/29/19 03:35 A&P Assessment and plan (1) Chronic kidney disease (CKD): Stable. Continue BMP in the Status: Chronic (2) Hyperlipidemia, unspecified: On statin will continue Status: Acute (3) Essential (primary) hypertension: Blood pressure improved. It is well controlled now Status: Acute (4) ST elevation [place] (STEMI): Post PCI to distal and proximal SVG to RCA. Continue current regimen. Continue beta-ezio aspirin statin and Plavix Status: Acute (5) CHF (congestive heart failure): Continues to be compensated. I will see patient on oral Lasix Status: Acute (6) Hiccup: Patient continues to have hiccups which is very bothersome we will start him on baclofen. Status: Acute Attestations Medical Necessity Statement*: Patient require continuation hospitalization for above defined care. Coding Level of Care Code Established Pt Acute Pasteurizing Machine Operator for Chg Fwd Patient Type Established History Expanded Problem Focused Exam Expanded Problem Focused Medical Decision Making Moderate Complexity Diagnoses Chronic kidney disease (CKD) N18.9 Hyperlipidemia, unspecified E78.5 Essential (primary) hypertension I10 ST elevation [place] (STEMI) I21.3 CHF (congestive heart failure) I50.9 Hiccup R06.6
--- NOTE | 2019-07-30 18:30 | PC.NURSE ---
transfered to first floor at this time
[2019-07-31 04:00] VITALS: BP 115/81; PULSE 93; RESP 24; TEMP 36.8; O2SAT 92
[2019-07-31 07:20] VITALS: BP 120/82; PULSE 87; RESP 19; TEMP 37.1; O2SAT 90
--- NOTE | 2019-07-31 08:00 | XRR_ITS ---
PROCEDURE INFORMATION: Exam: XR Chest, 1 View Exam date and time: 07/31/2019 5:12 AM Age: 79 years old Clinical indication: Condition or disease; Other: Chf; Prior surgery; Surgery type: Cabg, stents date of surgery not provided TECHNIQUE: Imaging protocol: XR of the chest Views: 1 view. COMPARISON: CR XR chest 1V portable [id number] 07/29/2019 4:37 AM FINDINGS: Lungs: There is improving aeration in the lungs compared with 07/29/2019. There are some strandy opacities present in the left lung base that likely represents atelectasis. Pleural space: Unremarkable. No pleural effusion. No pneumothorax. Heart/Mediastinum: Unremarkable. No cardiomegaly. Bones/joints: Unremarkable. XR/XR chest 1V portable [id number] IMPRESSION: Improving aeration in the lungs compared with 07/29/2019 with some strandy opacities remaining in the left lung base compatible with atelectasis.
[2019-07-31] MEDS: aspirin 81 mg EC Tablet PO (08:34)
[2019-07-31] MEDS: baclofen 10 mg Tablet PO ×2 (08:34→14:17)
[2019-07-31] MEDS: clopidogrel 75 mg Tablet PO (08:34)
[2019-07-31] MEDS: isosorbide mononitrate ER 30 mg Tablet PO (08:35)
[2019-07-31] MEDS: carvedilol 6.25 mg Tablet PO (08:35)
[2019-07-31] MEDS: enoxaparin 40 mg/0.4 mL Syringe SUBCUT (08:36)
[2019-07-31 12:27] VITALS: BP 100/61; PULSE 91; RESP 16; TEMP 37.3; O2SAT 92
[2019-07-31 14:50] VITALS: BP 100/61; PULSE 91; RESP 16; TEMP 37.3; O2SAT 92
--- NOTE | 2019-07-31 15:13 | PC.NURSE ---
Discharge instructions given per the physician's orders. Patient verbalized understanding and did not have any further questions. Stent card is with patient.
--- NOTE | 2019-07-31 15:17 | PC.NURSE ---
Patient's , Jennifer, contacted for discharge.
--- NOTE | 2019-07-31 17:20 | PM.DCS ---
Discharge Providers Date of Admission: 07/27/19 18:05 Date of Discharge: July 31, 2019 Attending Provider at Admission: Vanessa Schofield MD Attending Provider at Discharge: Vanessa Schofield MD Primary Care Provider: Cristopher Carter MD Diagnoses at Discharge Discharge Diagnosis (1) Chronic kidney disease (CKD): Status: Chronic Problem details: stage 3 (2) Hyperlipidemia, unspecified: Status: Acute (3) Essential (primary) hypertension: Status: Acute (4) ST elevation [place] (STEMI): Status: Acute (5) CHF (congestive heart failure): Status: Acute (6) Hiccup: Status: Acute Reason for Visit Reason for Visit: Reason For Visit: Stemi Hospital Course Discharge Summary: Patient presented to the emergency room with ST elevation MO he was taken to the Insurance Loss Adjuster he was found to have chronically occluded SVG to obtuse marginal, patent QUICK to LAD but SVG to RCA was the culprit with proximal 90% and distal subtotal occlusion 95 to 99% lesion both were treated with drug-eluting stents. Postop course was complicated with pulmonary edema treated with IV Lasix later hiccup and anxiety overwhelmed patient. He was started on baclofen after that he felt much better. Today he is very happy and walking around in the hallway. He is well compensated heart failure mak. He also went into A. fib with RVR controlled with beta-ezio he denies any chest pain. He is being discharged home on Plavix. Patient is high risk for bleeding therefore cannot take warfarin. Continue Plavix and aspirin Physical Exam Narrative: EXAM NARRATIVE: GENERAL: Patient is alert, awake and oriented x3. NECK: No jugular vein distension. HEENT: No cyanosis. No icterus. No pallor. HEART: Regular S1 and S2. No murmur, rub or gallop. LUNGS: Clear to auscultate bilaterally. ABDOMEN: Soft, nontender and nondistended. Positive bowel sounds. No guarding, rebound or tenderness. CENTRAL NERVOUS SYSTEM: Grossly nonfocal. EXTREMITIES: Lower extremities without edema bilaterally. Discharge Data Data Completed and Pending: Completed Studies During Hospitalization Category Date Time Status CXRP [XR chest 1V portable [id number]] R outine Exams 07/29/19 05:00 Completed XR chest 1V radhika ble [id number] Stat Exams 07/27/19 18:45 Completed US echo complete [CV echo complete* [id number]] Routine Ultrasound 07/28/19 12:55 Completed Pending at discharge Category Date Time Status YARD SWITCHER request for service Stat Exams 07/27/19 16:55 Taken XR chest 1V radhika ble [id number] Routine Exams 07/31/19 08:00 Taken Vitals: Last Vital Signs Temp 99.2 F 07/31/19 14:50 Pulse 91 07/31/19 14:50 Resp 16 07/31/19 14:50 BP 100/61 07/31/19 14:50 Pulse Ox 92 07/31/19 14:50 Discharge Plan Discharge Patient Disposition: Home, Self-Care Condition: Stable Prescriptions: New clopidogrel 75 mg Tablet 75 mg PO DAILY Qty: 90 RF: 3 baclofen 10 mg Tablet 10 mg PO TID Qty: 21 RF: 3 atorvastatin 10 mg tablet 10 mg PO DAILY Qty: 30 RF: 4 Continued testosterone cypionate [Depo-Testosterone] 100 mg/mL oil 100 mg IM DAILY RF: 0 nitroglycerin 0.4 mg tablet, sublingual 0.4 mg SUBLINGUAL Q5M PRN (Reason: Chest pain) RF: 0 multivitamin Capsule 1 cap PO QAM RF: 0 cholecalciferol (vitamin D3) 2,000 unit tablet 2,000 unit PO DAILY RF: 0 ascorbate calcium (vitamin C) 500 mg tablet 500 mg PO DAILY RF: 0 carvedilol 6.25 mg tablet 6.25 mg PO BID RF: 0 losartan 100 mg Tablet 150 mg PO DAILY RF: 0 sildenafil 100 mg Tablet 100 mg PO DIRECTED PRN (Reason: sexual intercourse) RF: 0 Changed diltiazem HCl 120 mg capsule,extended release 12 hr 60 mg PO DAILY Qty: 30 RF: 3 aspirin 325 mg tablet,delayed release (DR/EC) 81 mg PO DAILY Qty: 0 RF: 0 Discontinued isosorbide mononitrate 30 mg tablet extended release 24 hr 30 mg PO BID Qty: 60 RF: 3 Discharge Orders: Discharge Order (Routine); Ordered 07/31/19 Ordered By: Vanessa Schofield Referrals: [facility] [Outside] Judy Gama FNP [Nurse Practitioner] - 1 week (On Friday, please call [facility] to set a post procedure followup with ARTHUR Parmar to be seen in 1 week. Thank you) Cristopher Carter MD [Primary Care Provider] - 4-7 days (On Friday, please call [facility] to schedule a hospital followup with be seen in 4 to 7 days. Thank you) Discharge Diet: Cardiac Discharge Activity: Increase activity as tolerated Patient Instructions: Baclofen (By mouth), Atorvastatin (By mouth), Clopidogrel (By mouth), Chest Pain (DC), Post Angiogram Home Care Instructions Activity Restrictions/Additional Instructions: Follow-up with cardiology in 7 days. Discharge Date/Time: 07/31/19 15:45 Discharge Attestations Time Spent in Discharge Care*: less than 30 min Specific Discharge Activities: Specific discharge activities: educating patient Time Spent in Smoking Cessation: Time spent discussing smoking cessation with patient: 3 to 10 minutes Quality Metrics Clinical Quality Measures During this hospital stay, did patient experience: AMI Clinical Trial Participant: No Contraindication to aspirin (AMI): Aspirin given Contraindication to statin: Statin prescribed and None Coding Level of Care Code New Pt Acute Drive In Teller for Chg Fwd Patient Type New History Expanded Problem Focused Exam Expanded Problem Focused Medical Decision Making Moderate Complexity Diagnoses Chronic kidney disease (CKD) N18.9 Hyperlipidemia, unspecified E78.5 Essential (primary) hypertension I10 ST elevation [place] (STEMI) I21.3 CHF (congestive heart failure) I50.9 Hiccup R06.6
== END 2019-07-31 15:45 | disposition home or self-care (01) | DRG 247 ==
LOC: ER 16:57 → CCL 18:08 → ICU 18:09 → CSU 07-30 18:34
PROVIDERS: Family Medicine; Admitting Provider Internal Medicine Cardiovascular Disease; PCP Family Medicine; Visit Provider Internal Medicine Cardiovascular Disease
PROC: 027035Z Dilation of Coronary Artery, One Artery with Two Drug-eluting Intraluminal Devices, Percutaneous Approach (ICD-10-PCS; principal; 2019-07-27 16:30)
PROC: 027035Z Dilation of Coronary Artery, One Artery with Two Drug-eluting Intraluminal Devices, Percutaneous Approach (ICD-10-PCS; 2019-07-27 16:30)
DX: I21.4 Non-ST elevation (NSTEMI) myocardial infarction (principal); I13.0 Hypertensive heart and chronic kidney disease with heart failure and stage 1 through stage 4 chronic kidney disease, or unspecified chronic kidney disease; I50.9 Heart failure, unspecified; N18.3 Chronic kidney disease, stage 3 (moderate); E78.5 Hyperlipidemia, unspecified; I25.10 Atherosclerotic heart disease of native coronary artery without angina pectoris; Z95.1 Presence of aortocoronary bypass graft; Z95.5 Presence of coronary angioplasty implant and graft; I25.2 Old myocardial infarction; G47.33 Obstructive sleep apnea (adult) (pediatric); M79.7 Fibromyalgia; I48.91 Unspecified atrial fibrillation; R06.6 Hiccough
CPT/HCPCS: 12345; 36415; 71045; 80048; 80053; 84484; 85025; 85347; 85610; 85730; 93005; 93306; 93455; 94660; 96372; 96375; 99282; C1725; C1769; C1874; C1887; C1894; C9113; C9606; J1644; J1650; J1940; J2001; J2250; J2270; J2405; J2550; J3010; J3246; J3490; J7030; J7040; J8597; Q9967

== ENCOUNTER → 2019-08-06 11:03 | Outpatient (BNVA) | payer MEDICARE, SELFPAY | PROVIDERS: PCP Family Medicine; Visit Provider Nurse Practitioner Family | DX: I25.10 Atherosclerotic heart disease of native coronary artery without angina pectoris (principal); N18.9 Chronic kidney disease, unspecified | CPT/HCPCS: 80048 ==

== ENCOUNTER 2019-09-24 07:51 | Outpatient (CLI) | payer MEDICARE, SELFPAY ==
--- NOTE | 2019-09-24 14:09 | PFTS_ITS ---
Date of Study:09/24/19 Date of Dictation: MECHANICS: Forced vital capacity (FVC) is normal. Forced expiratory volume in one second (FEV1) is normal. FEV1/FVC is normal. FLOW VOLUME LOOP: Normal. LUNG VOLUMES: Total lung capacity (TLC) is mildly reduced. Residual volume (RV) is mildly reduced. DIFFUSING CAPACITY FOR CARBON MONOXIDE: Mildly reduced. INTERPRETATION: The spirometry is normal. There is reduction of total lung capacity and residual volume on lung volume measurement. This would be inconsistent with a normal forced and slow vital capacity. Gas exchange (DLCO) is mildly reduced. MTDD
== END 2019-09-24 07:52 | disposition home or self-care (01) ==
PROVIDERS: PCP Family Medicine; Visit Provider Family Medicine
DX: R06.02 Shortness of breath (principal)
CPT/HCPCS: 94010; 94726; 94729

== ENCOUNTER 2019-10-07 11:11 | Outpatient (RCR) | payer MEDICARE, SELFPAY | END 2019-10-15 23:59 | disposition home or self-care (01) | LOC: CR 11:11 | PROVIDERS: PCP Family Medicine; Referring Provider Internal Medicine Cardiovascular Disease; Visit Provider Internal Medicine Cardiovascular Disease | DX: I25.10 Atherosclerotic heart disease of native coronary artery without angina pectoris (principal); Z95.5 Presence of coronary angioplasty implant and graft | CPT/HCPCS: 93798 ==

== ENCOUNTER 2019-10-15 09:32 | Emergency (ER) | payer MEDICARE, SELFPAY ==
[2019-10-15 09:34] VITALS: BP 163/103; PULSE 85; RESP 20; O2SAT 98; BMI 26.6
--- NOTE | 2019-10-15 09:47 | ECG_ITS ---
[facility] Test Date: 2019-10-15 Pat Name: Jeremiah Blackwell Department: Room: Gender: Male Bariatric Program Coordinator: : 1940 Requested By: Nba Ibrahim Order Number: [id number] Toshia MD: Cm Ambriz M.D. Measurements Intervals [place] Rate: 78 P: 35 CA: 186 QRS: -1 QRSD: 100 T: 130 QT: 398 QTc: 455 Interpretive Statements SINUS RHYTHM WITH FREQUENT SUPRAVENTRICULAR PREMATURE COMPLEXES INFERIOR MYOCARDIAL INFARCTION , PROBABLY OLD [40+ ms Q WAVE AND/OR ST/T ABNORMALITY IN II/aVF] MODERATE T-WAVE ABNORMALITY, CONSIDER LATERAL ISCHEMIA [-0.1+ mV T WAVE IN I/aVL/V5/V6] Compared to ECG 07/28/2019 04:17:55 T-wave abnormality now present Possible ischemia now present Myocardial infarct finding still present Electronically Signed On 10-15-2019 16:03:55 CDT by Cm Ambriz M.D. [id number] mariya
--- NOTE | 2019-10-15 09:47 | XRR_ITS ---
PROCEDURE INFORMATION: Exam: XR Chest, 1 View Exam date and time: 10/15/2019 10:08 AM Age: 79 years old Clinical indication: Pain; Shortness of breath; Chest pressure; Prior surgery; Surgery type: Bypass; Additional info: Chest pain TECHNIQUE: Imaging protocol: XR of the chest Views: 1 view. COMPARISON: CR XR chest 1V portable [id number] 07/31/2019 5:02 AM FINDINGS: Lungs: Fibrocalcific changes including numerous granulomas within the lung parenchyma in calcified lymph nodes in the hilar regions. Lungs are well aerated without a focal area of consolidation. Pleural space: Unremarkable. No pleural effusion. No pneumothorax. Heart/Mediastinum: cardiac silhouette is enlarged. Prior sternotomy. Bones/joints: See Heart/Mediastinum finding. XR/XR chest 1V portable [id number] IMPRESSION: 1. Cardiac silhouette is enlarged. Prior sternotomy. 2. Fibrocalcific changes including numerous granulomas within the lung parenchyma in calcified lymph nodes in the hilar regions. 3. Lungs are well aerated without a focal area of consolidation.
[2019-10-15 10:01] VITALS: O2SAT 98
[2019-10-15 10:09] LABS: Basophils % 0.7 %; Eosinophils # 0.2 10^3/uL (0.0-0.8); Eosinophils % 3.9 %; Hematocrit 43.8 % (42.0-52.0); Hemoglobin 14.3 g/dL (11.7-16.6); Lymphocytes # 1.3 10^3/uL (0.8-4.8); Lymphocytes % 32.2 %; Mean Corpuscular HGB Conc 32.6 g/dL (30.0-36.0); Mean Corpuscular Hemoglobin 28.2 pg (28.0-34.0); Mean Corpuscular Volume 86.4 fL (80-94); Mean Platelet Volume 10.2 fL (7.4-10.4); Monocytes # 0.4 10^3/uL (0.2-0.9); Monocytes % 8.5 %; Neutrophils # 2.24 10^3/uL (1.8-7.7); Neutrophils % 54.2 %; Nucleated Red Blood Cells % 0 %; Platelet Count 152 10^3/cmm (130-400); Red Blood Count 5.07 10^6/uL (4.1-5.3); Red Cell Distribution Width 12.5 % (12.1-15.1); White Blood Count 4.1 10^3/uL (4.0-10.0)
[2019-10-15 10:24] LABS: Alanine Aminotransferase 16 U/L (0-41); Albumin Level 4.3 g/dL (3.5-5.2); Alkaline Phosphatase 50 IU/L (40-130); Anion Gap 14.6 (5-19); Aspartate Amino Transferase 17 U/L (0-40); Blood Urea Nitrogen 21 mg/dL (8-23); Calcium 9.5 mg/dL (8.5-10.5); Carbon Dioxide 19 mmol/L (22-29); Chloride 107 mmol/L (98-107); Globulin 2.8 g/dL (1.3-4.6); Glucose 123 mg/dL (65-115); Osmolality Calculated 282 mOsm/kg (285-295); Potassium 3.6 mmol/L (3.5-5.1); Sodium 137 mmol/L (136-145); Total Bilirubin 0.8 mg/dL (0.15-1.2); Total Protein 7.1 g/dL (6.6-8.7)
[2019-10-15 10:25] LABS: Troponin(5th) Baseline 37 ng/L (0-15)
--- NOTE | 2019-10-15 10:27 | ED_ITS ---
HPI - Chest Pain General: Chief Complaint: Chest Pain Stated Complaint: chest pressure Time Seen by Provider: 10/15/19 09:41 History of Present Illness: HPI narrative: 79-year-old male was at cardiac rehab this morning when he got up around 7 AM he had some chest discomfort it seemed to get a little worse pressure and shortness of breath while he was at cardiac rehab. They had him take a sublingual nitro he states that at that point the pain was 2 of 10 he had no relief after the sublingual nitro. 2 months ago he had an NJ he had PTCA with stenting x2 symptoms are worse with exertion. Blood pressure elevated this morning at home. He also had an event monitor which he says he is triggered twice this morning. We do not have the rhythm strips from that at this time. He states his symptoms do get worse with exertion. MD complaint: chest pain Pertinent past history: coronary artery disease Onset (ago): hour(s) Timing of current episode: episodic and still present Prior episodes: Yes Onset: during rest Pain location: substernal and left chest Pain radiation: none Severity: moderate Quality: tightness and heaviness Associated symptoms: Reports no associated symptoms; Deny abdominal pain, dyspnea, fever(s), nausea or vomiting Review of Systems Const: Denies: fever(s), chills, body aches, change in appetite, fatigue or malaise ENMT: Denies: throat pain, ear or mastoid pain, nasal discharge or nasal congestion Card: Denies: chest pain, edema, dyspnea on exertion or orthopnea Resp: Denies: dyspnea, productive cough or non-productive cough GI: Denies: abdominal pain, nausea, vomiting, hematemesis, coffee ground emesis, diarrhea, constipation, bloating, hematochezia or melena : Denies: flank pain, dysuria, urinary frequency or urinary urgency Skin/Breast: Denies: rash or pruritus PFSH ED PFSH: Medical History Arteriosclerotic cardiovascular disease Atrial fibrillation AF- post NJ and stent 07/27/2019, high risk for bleeding, not anticoagulated Chest pain, unspecified CHF (congestive heart failure) Essential (primary) hypertension History of myocardial infarction 2010 s/p stent Hyperlipidemia, unspecified Surgical History S/P CABG x 4 QUICK to LAD, SVG to circumflex and obtuse marginal, SVG to RCA in 1999, [place], [place] S/P right coronary artery (RCA) stent placement 07/27/2019 SVG to RCA chronic occlusion SVG to OM Family History Brother CAD (coronary artery disease) Hypertension Stroke Father CAD (coronary artery disease) Stroke Mother CAD (coronary artery disease) Hypertension Stroke Social History Smoking and tobacco status: never smoked Alcohol intake: never Physical Exam Const: COMMON NORMALS: average body habitus, patient oriented x3 and alert GENERAL APPEARANCE: cooperative, comfortable, well kempt and well developed NUTRITIONAL APPEARANCE: obese ORIENTATION/CONSCIOUSNESS: Yes awake, Yes oriented to person and Yes oriented to place HENMT: COMMON NORMALS: normocephalic, atraumatic, EAC's normal, TM's normal bilaterally, Normal external nose present, moist oral mucous membranes and oropharynx normal HEAD & SCALP: normocephalic and atraumatic NOSE: Normal external nose present EXTERNAL AUDITORY CANAL: EAC's normal TYMPANIC MEMBRANE: TM's normal bilaterally MOUTH: Normal oral and palatal mucosa present, lip normal and tongue normal THROAT: posterior oropharynx normal and tonsils normal Eye: COMMON NORMALS: Equal, round and reactive pupils present, EOMs intact bilaterally, conjunctivae normal and no scleral icterus CONJUNCTIVA: Yes conjunctivae normal PUPIL: Yes Equal, round and reactive pupils present Neck/C-Spine: COMMON NORMALS: full ROM, no lymphadenopathy, supple, no meningeal signs and Thyroid normal THYROID: Thyroid normal and asymmetrical Lymph: LYMPHATIC: no lymphadenopathy noted Resp: COMMON NORMALS: normal respiratory effort, No retractions, No use of accessory muscles and clear to auscultation bilaterally AUSCULTATION: clear to auscultation bilaterally Cardio: COMMON NORMALS: regular rate and regular rhythm RATE: regular rate RHYTHM: regular rhythm HEART SOUNDS: no murmurs GI: COMMON NORMALS: Normal to inspection, nondistended, normoactive bowel sounds present, Soft to palpation and No hepatosplenomegaly present PALPATION: Yes Soft to palpation and Yes No hepatosplenomegaly present : COMMON NORMALS: Yes no CVA tenderness BLADDER/KIDNEY EXAM: Yes no CVA tenderness Back/Pelvis: COMMON NORMALS: no CVA tenderness LUMBAR SPINE/LOWER BACK: Yes normal to inspection Extremity: COMMON NORMALS: no clubbing, cyanosis or edema, no calf tenderness and no pedal edema Neuro: COMMON NORMALS: patient oriented x3 SENSORIUM/ORIENTATION: Yes alert, Yes oriented to person and Yes oriented to place MENINGEAL SIGNS: Yes no meningeal signs Psych: APPEARANCE: Yes well kempt Skin: COMMON NORMALS: no rashes or lesions noted and turgor normal GENERAL SKIN EXAM: no rashes or lesions noted and turgor normal Course Vital Signs: Vital signs: Vital Signs Pulse Rate 72 10/15/19 15:15 Respiratory Rate 23 H 10/15/19 15:15 Blood Pressure 126/73 10/15/19 15:15 Pulse Oximetry 95 10/15/19 15:15 MDM - Chest Pain MDM Narrative: Medical decision making narrative: His cardiac enzymes are negative x2. He does have a Holter monitor on we did get the event strips from this morning when he had pressed record both show sinus rhythm with PACs. We will go ahead and discharge him home he is feeling fine at this point he is not having any further discomfort. Continue all of his current medications for has any recurrent chest pain or discomfort he should return immediately to the emergency room. All the findings were reviewed with him and he was given opportunity to ask questions. Lab Data: Labs: Lab Results 10/15/19 10/15/19 10/15/19 Range/Units 10:00 10:00 10:00 WBC 4.1 (4.0-10.0) 10^3/ uL RBC 5.07 (4.1-5.3) 10^6/u L Hgb 14.3 (11.7-16.6) g/dL Hct 43.8 (42.0-52.0) % MCV 86.4 (80-94) fL MCH 28.2 (28.0-34.0) pg MCHC 32.6 (30.0-36.0) g/dL RDW 12.5 (12.1-15.1) % Plt Count 152 (130-400) 10^3/c mm MPV 10.2 (7.4-10.4) fL Neut % (Auto) 54.2 % Lymph % (Auto) 32.2 % [place] % (Auto) 8.5 % Eos % (Auto) 3.9 % Baso % (Auto) 0.7 % Neut # (Auto) 2.24 (1.8-7.7) 10^3/u L Lymph # (Auto) 1.3 (0.8-4.8) 10^3/u L [place] # (Auto) 0.4 (0.2-0.9) 10^3/u L Eos # (Auto) 0.2 (0.0-0.8) 10^3/u L Baso # (Auto) 0.0 (0.0-0.1) 10^3/u L Nucleated RBC % (a uto) 0 % Nucleated RBCs # 0.0 /100WBC Sodium 137 (136-145) mmol/L Potassium 3.6 (3.5-5.1) mmol/L Chloride 107 (98-107) mmol/L Carbon Dioxide 19 L (22-29) mmol/L Anion Gap 14.6 (5-19) BUN 21 (8-23) mg/dL Creatinine 1.2 (0.7-1.2) mg/dL GFR Calculation Not Reportable Glucose 123 H (65-115) mg/dL Calculated Osmolal ity 282 L (285-295) mOsm/k g Calcium 9.5 (8.5-10.5) mg/dL Total Bilirubin 0.8 (0.15-1.2) mg/dL AST 17 (0-40) U/L ALT 16 (0-41) U/L Alkaline Phosphata se 50 (40-130) IU/L Troponin T Baselin e 37 H (0-15) ng/L Troponin T 120 Min [place] (0-15) ng/L Delta Troponin T (0-10) ABS# Total Protein 7.1 (6.6-8.7) g/dL Albumin 4.3 (3.5-5.2) g/dL Globulin 2.8 (1.3-4.6) g/dL 10/15/19 Range/Units 12:15 WBC (4.0-10.0) 10^3/ uL RBC (4.1-5.3) 10^6/u L Hgb (11.7-16.6) g/dL Hct (42.0-52.0) % MCV (80-94) fL MCH (28.0-34.0) pg MCHC (30.0-36.0) g/dL RDW (12.1-15.1) % Plt Count (130-400) 10^3/c mm MPV (7.4-10.4) fL Neut % (Auto) % Lymph % (Auto) % [place] % (Auto) % Eos % (Auto) % Baso % (Auto) % Neut # (Auto) (1.8-7.7) 10^3/u L Lymph # (Auto) (0.8-4.8) 10^3/u L [place] # (Auto) (0.2-0.9) 10^3/u L Eos # (Auto) (0.0-0.8) 10^3/u L Baso # (Auto) (0.0-0.1) 10^3/u L Nucleated RBC % (a uto) % Nucleated RBCs # /100WBC Sodium (136-145) mmol/L Potassium (3.5-5.1) mmol/L Chloride (98-107) mmol/L Carbon Dioxide (22-29) mmol/L Anion Gap (5-19) BUN (8-23) mg/dL Creatinine (0.7-1.2) mg/dL GFR Calculation Glucose (65-115) mg/dL Calculated Osmolal ity (285-295) mOsm/k g Calcium (8.5-10.5) mg/dL Total Bilirubin (0.15-1.2) mg/dL AST (0-40) U/L ALT (0-41) U/L Alkaline Phosphata se (40-130) IU/L Troponin T Baselin e (0-15) ng/L Troponin T 120 Min [place] 35.70 H (0-15) ng/L Delta Troponin T -1.30 L (0-10) ABS# Total Protein (6.6-8.7) g/dL Albumin (3.5-5.2) g/dL Globulin (1.3-4.6) g/dL Discharge Plan Discharge Patient Disposition: Home Clinical Impression: Chest pain, unspecified, Heart palpitations Condition: Stable Prescriptions: No Action aspirin [Adult Aspirin Regimen] 81 mg tablet,delayed release (DR/EC) 81 mg PO DAILY RF: 0 nitroglycerin 0.4 mg tablet, sublingual 0.4 mg SUBLINGUAL Q5M PRN (Reason: Chest pain) RF: 0 multivitamin Capsule 1 cap PO QAM RF: 0 ascorbate calcium (vitamin C) 500 mg tablet 1,000 mg PO BID RF: 0 metoprolol tartrate 25 mg tablet 12.5 mg PO BID Qty: 30 RF: 0 diltiazem HCl 120 mg capsule,extended release 24hr 120 mg PO DAILY Qty: 90 RF: 3 Eliquis 5 mg tablet 5 mg PO BID Qty: 60 RF: 0 losartan 100 mg Tablet 150 mg PO DAILY RF: 0 clopidogrel 75 mg Tablet 75 mg PO DAILY Qty: 90 RF: 3 atorvastatin 10 mg tablet 10 mg PO DAILY Qty: 30 RF: 4 Discharge Orders: Discharge Order (Routine); Ordered 10/15/19 Ordered By: Nba Castellon Referrals: Cristopher Carter MD [Primary Care Provider] - Discharge Diet: Usual diet Discharge Activity: Increase activity as tolerated Activity Restrictions/Additional Instructions: Follow-up with Dr. Hills within the next week. Discharge Date/Time: 10/15/19 15:15 Coding Level of Care Code ED Dancing Master for Chg Fwd Exam Comprehensive
[2019-10-15 10:55] VITALS: BP 130/77; PULSE 67; RESP 23; O2SAT 97
--- NOTE | 2019-10-15 11:47 | ECG_ITS ---
[facility] Test Date: 2019-10-15 Pat Name: Jereimah Blackwell Department: Room: Gender: Male Unit Aide: : 1940 Requested By: Nba Ibrahim Order Number: [id number] Reading MD: Cm Ambriz M.D. Measurements Intervals [place] Rate: 68 P: 29 SC: 197 QRS: -11 QRSD: 101 T: 152 QT: 442 QTc: 471 Interpretive Statements SINUS RHYTHM WITH OCCASIONAL VENTRICULAR PREMATURE COMPLEXES POSSIBLE LEFT ATRIAL ENLARGEMENT [-0.1mV P WAVE IN V1/V2] INFERIOR MYOCARDIAL INFARCTION , PROBABLY OLD [40+ ms Q WAVE AND/OR ST/T ABNORMALITY IN II/aVF] MODERATE T-WAVE ABNORMALITY, CONSIDER LATERAL ISCHEMIA [-0.1+ mV T WAVE IN I/aVL/V5/V6] Compared to ECG 10/15/2019 09:38:56 Ventricular premature complex(es) now present Myocardial infarct finding still present T-wave abnormality still present Possible ischemia still present Electronically Signed On 10-15-2019 16:19:41 CDT by Cm Ambriz M.D. [id number]
[2019-10-15 12:01] VITALS: BP 145/86; PULSE 69; RESP 14; O2SAT 98
--- NOTE | 2019-10-15 12:37 | PC.NURSE ---
EKG done at 1234 and shown to ER doctor
[2019-10-15 12:57] VITALS: BP 145/86; PULSE 63; RESP 19; O2SAT 98
[2019-10-15 15:15] VITALS: BP 126/73; PULSE 72; RESP 23; O2SAT 95
== END 2019-10-15 15:15 | disposition home or self-care (01) ==
PROVIDERS: Emergency Provider Family Medicine; PCP Family Medicine
DX: R07.9 Chest pain, unspecified (principal); R00.2 Palpitations; Z79.01 Long term (current) use of anticoagulants; Z79.02 Long term (current) use of antithrombotics/antiplatelets; Z79.82 Long term (current) use of aspirin; I48.91 Unspecified atrial fibrillation; I11.0 Hypertensive heart disease with heart failure; I50.9 Heart failure, unspecified; I25.2 Old myocardial infarction; E78.5 Hyperlipidemia, unspecified; Z95.1 Presence of aortocoronary bypass graft
CPT/HCPCS: 12345; 36415; 71045; 80053; 84484; 85025; 93005; 99283; 99284

== ENCOUNTER 2019-10-19 08:58 | Outpatient (RCR) | payer MEDICARE, SELFPAY | END 2019-11-15 23:59 | disposition home or self-care (01) | LOC: CR 08:58 | PROVIDERS: PCP Family Medicine; Referring Provider Internal Medicine Cardiovascular Disease; Visit Provider Internal Medicine Cardiovascular Disease | DX: Z95.5 Presence of coronary angioplasty implant and graft (principal) | CPT/HCPCS: 93798 ==

== ENCOUNTER 2019-11-16 11:24 | Outpatient (RCR) | payer MEDICARE, SELFPAY | END 2019-12-15 23:59 | disposition home or self-care (01) | LOC: CR 11:24 | PROVIDERS: PCP Family Medicine; Referring Provider Internal Medicine Cardiovascular Disease; Visit Provider Internal Medicine Cardiovascular Disease | DX: Z95.5 Presence of coronary angioplasty implant and graft (principal) | CPT/HCPCS: 93798 ==

== ENCOUNTER 2019-12-17 08:59 | Outpatient (RCR) | payer MEDICARE, SELFPAY | END 2020-01-15 23:59 | disposition home or self-care (01) | LOC: CR 08:59 | PROVIDERS: PCP Family Medicine; Referring Provider Internal Medicine Cardiovascular Disease; Visit Provider Internal Medicine Cardiovascular Disease | DX: Z95.5 Presence of coronary angioplasty implant and graft (principal) | CPT/HCPCS: 93798 ==

== ENCOUNTER 2019-12-29 12:21 | Outpatient (CLI) | payer MEDICARE, SELFPAY ==
[2019-12-29 12:50] LABS: Basophils % 0.8 %; Eosinophils # 0.2 10^3/uL (0.0-0.8); Eosinophils % 3.1 %; Hematocrit 46.9 % (42.0-52.0); Lymphocytes # 1.4 10^3/uL (0.8-4.8); Lymphocytes % 27.5 %; Mean Corpuscular Hemoglobin 28.2 pg (28.0-34.0); Mean Corpuscular Volume 88.2 fL (80-94); Mean Platelet Volume 10.1 fL (7.4-10.4); Monocytes # 0.4 10^3/uL (0.2-0.9); Monocytes % 8.6 %; Neutrophils # 2.93 10^3/uL (1.8-7.7); Neutrophils % 59.6 %; Nucleated Red Blood Cells % 0 %; Platelet Count 120 10^3/cmm (130-400); Red Blood Count 5.32 10^6/uL (4.1-5.3); Red Cell Distribution Width 13.6 % (12.1-15.1); White Blood Count 4.9 10^3/uL (4.0-10.0)
[2019-12-29 13:18] LABS: Slide Review Slide Review Perform
[2019-12-29 14:12] LABS: Anion Gap 14.7 (5-19); Blood Urea Nitrogen 23 mg/dL (8-23); Calcium 9.1 mg/dL (8.5-10.5); Carbon Dioxide 24 mmol/L (22-29); Chloride 106 mmol/L (98-107); Glucose 93 mg/dL (65-115); NT Pro B Type Natriuretic Pept 2010 pg/mL (0-450); Osmolality Calculated 295 mOsm/kg (285-295); Potassium 3.7 mmol/L (3.5-5.1); Sodium 141 mmol/L (136-145)
[2019-12-30 17:51] LABS: Thyroid Stimulating Hormone 1.36 uIU/mL (0.27-4.20)
== END 2019-12-29 12:22 | disposition home or self-care (01) ==
LOC: LAB 12:24
PROVIDERS: PCP Family Medicine; Visit Provider Family Medicine
DX: R53.83 Other fatigue (principal); N18.9 Chronic kidney disease, unspecified; I50.33 Acute on chronic diastolic (congestive) heart failure
CPT/HCPCS: 36415; 80048; 83880; 84443; 85025

== ENCOUNTER → 2020-01-07 10:11 | Outpatient (BNVA) | payer MEDICARE, SELFPAY | PROVIDERS: PCP Family Medicine; Visit Provider Internal Medicine Cardiovascular Disease | DX: I50.33 Acute on chronic diastolic (congestive) heart failure (principal); N18.2 Chronic kidney disease, stage 2 (mild); R07.9 Chest pain, unspecified; I48.19 Other persistent atrial fibrillation | CPT/HCPCS: 80048; 83880 ==

== ENCOUNTER 2020-01-10 06:46 | Outpatient (CLI) | payer MEDICARE, SELFPAY ==
--- NOTE | 2020-01-10 07:30 | ECG_ITS ---
[facility] Test Date: 2020-01-10 Pat Name: Jeremiah Blackwell Department: Room: Gender: Male Service Crew Supervisor: Sheila Jauregui : 1940 Requested By: Janet Patrick Order Number: [id number] Toshia MD: Janet Patrick M.D. Interpretive Statements NAME OF STUDY: LEXISCAN SESTAMIBI STRESS TEST INDICATION: Chest Pain, PROCEDURE: At the baseline, the EKG revealed sinus bradycardia with a rate of [address]-T changes in the inferior and anterolateral leads. Poor R wave progression. The baseline blood pressure was 134/82 mm Hg with a heart rate of 50 beats/min. Lexiscan was infused over a period of 20 seconds. A total of 0.4 milligrams of Lexiscan was infused. The stress phase was continued for a total of 5 minutes. Heart rate at the end of the stress phase was 61 with a blood pressure 134/83. The EKG at the peak infusion revealed no significant new changes. Sestamibi was injected 20 seconds after the Lexiscan infusion. Blood pressure at the end of the recovery phase was 129/84 with a heart rate of 57 per minute. CONCLUSION: 1. No significant EKG changes with the LexiScan infusion 2. No LexiScan induced chest pain or cardiac arrhythmia 3. Normal blood pressure and heart rate response 4. Sestamibi/sestamibi perfusion scan pending; see separate report. Electronically Signed On 01-13-2020 8:57:41 CDT by Janet Patrick M.D. [id number]
--- NOTE | 2020-01-10 07:31 | NMCV_ITS ---
NM kim perf SPECT r/s* [id number] Jeremiah Blackwell Age: 79 Gender: M : 1940 Exam Date: 01/10/2020 08:07 Ordering Phys: Janet Patrick MD ([email or web address]) Technologist: LANA Burton Exam Location: [facility] Indications: SHORTNESS OF BREATH STRESS TEST Please see separate stress test report in [facility]any for full findings IMAGE PROTOCOL Rest/Stress 1 Radiopharmaceutical Dose (mCi) Administration Site Administered by Rest: Tc-99m 10.8 IV LANA Burton Sestamibi Stress:Tc-99m 33.0 IV LANA Burton Sestamibi Rest: 01/10/2020 60 Discovery 630 Stress: 01/10/2020 45 Discovery 630 SPECT RESULTS Technical Quality: Good Raw Data Analysis: Normal Image Corrections: No attenuation or motion correction applied Summed Stress Score: 33 Summed Rest Score: 26 Summed Difference Score: 7 PERFUSION FINDINGS Large area of severely decreases uptake was noted in the basal mid and apical inferior; basal and mid inferolateral, anterolateral, anterior, apical lateral and LV apex. Some reversibility was noted in the anterior, anterolateral, inferior and apical lateral regions. FUNCTIONAL RESULTS (calculated via Gated SPECT) Stress Image LV EF (%): 29 Stress EDV (mL):129 TID: 1.1 Stress ESV (mL):92 FUNCTIONAL FINDINGS: Segmental wall motion analysis revealed diffuse hypokinesia of the left ventricle. 3. LV wall motion analysis revealing diffuse hypokinesia of left ventricle IMPRESSIONS 1. Myocardial perfusion imaging revealing large areas of persistent decreased tracer uptake in the anterior wall, anterolateral, inferolateral and inferior wall regions with some reversibility, suggestive of myocardial scarring in the distribution of the left and descending, circumflex and right coronary artery with possible areas of edgar-infarction ischemia. 2. Diminished ejection fraction 29%. 3. LV wall motion analysis revealing diffuse hypokinesia of the left ventricle. 4. Dilated LV cavity with an end-systolic volume of 92 mL Compared to the study from 05/12/2019, there is significant decline in the LV ejection fraction with extensive scarring and areas of ischemia Dr Janet Patrick MD FACC (Electronically Signed) Final Date: 10 January 2020 19:58 S
[2020-01-10 07:34] VITALS: BMI 27.3
[2020-01-10 08:56] VITALS: BP 127/68; PULSE 64
[2020-01-10] MEDS: regadenoson 0.4 Mg/5 ml Syringe IVP (08:56)
== END 2020-01-10 06:47 | disposition home or self-care (01) ==
LOC: RAD 06:50
PROVIDERS: PCP Family Medicine; Visit Provider Internal Medicine Cardiovascular Disease
DX: R06.02 Shortness of breath (principal); I25.110 Atherosclerotic heart disease of native coronary artery with unstable angina pectoris
CPT/HCPCS: 78452; 93017; A9500; J2785

== ENCOUNTER 2020-01-16 12:51 | Outpatient (RCR) | payer MEDICARE, SELFPAY | END 2020-02-14 23:59 | disposition home or self-care (01) | LOC: CR 12:51 | PROVIDERS: PCP Family Medicine; Referring Provider Internal Medicine Cardiovascular Disease; Visit Provider Internal Medicine Cardiovascular Disease | DX: Z95.5 Presence of coronary angioplasty implant and graft (principal) | CPT/HCPCS: 93798 ==

== ENCOUNTER → 2020-01-17 09:50 | Outpatient (BNVA) | payer MEDICARE, SELFPAY | PROVIDERS: PCP Family Medicine; Visit Provider Internal Medicine Cardiovascular Disease | DX: Z11.59 Encounter for screening for other viral diseases (principal); R07.9 Chest pain, unspecified | CPT/HCPCS: 87635 ==

== ENCOUNTER 2020-01-20 08:48 | Observation (INO) | payer MEDICARE, SELFPAY ==
[2020-01-17 10:18] LABS: Basophils % 0.7 %; Eosinophils # 0.2 10^3/uL (0.0-0.8); Eosinophils % 2.7 %; Hematocrit 46.1 % (42.0-52.0); Hemoglobin 14.6 g/dL (11.7-16.6); Lymphocytes # 1.3 10^3/uL (0.8-4.8); Lymphocytes % 23.5 %; Mean Corpuscular HGB Conc 31.7 g/dL (30.0-36.0); Mean Corpuscular Volume 91.5 fL (80-94); Mean Platelet Volume 11.1 fL (7.4-10.4); Monocytes # 0.4 10^3/uL (0.2-0.9); Monocytes % 6.8 %; Neutrophils # 3.66 10^3/uL (1.8-7.7); Neutrophils % 65.8 %; Nucleated Red Blood Cells % 0 %; Platelet Count 155 10^3/cmm (130-400); Red Blood Count 5.04 10^6/uL (4.1-5.3); Red Cell Distribution Width 13.3 % (12.1-15.1); White Blood Count 5.6 10^3/uL (4.0-10.0)
[2020-01-17 11:03] LABS: Blood Urea Nitrogen 24 mg/dL (8-23); Calcium 9.5 mg/dL (8.5-10.5); Carbon Dioxide 25 mmol/L (22-29); Chloride 104 mmol/L (98-107); Glucose 130 mg/dL (65-115); NT Pro B Type Natriuretic Pept 1466 pg/mL (0-450); Osmolality Calculated 294 mOsm/kg (285-295); Sodium 139 mmol/L (136-145); Thyroid Stimulating Hormone 1.03 uIU/mL (0.27-4.20)
--- NOTE | 2020-01-19 15:08 | PC.NURSE ---
Nurse Note Pt creatinine on 01/16 was 1.5. After speaking with Dr. Schofield, he wants pt to be admitted on 01/19 for iv hydration. it will be determined on 01/20 if C will proceed then.
--- NOTE | 2020-01-19 15:12 | PC.NURSE ---
NURSE NOTE SPOKE TO PT VIA PHONE. HE VERBALIZED UNDERSTANDING WELL COVID VISITING HOURS.
[2020-01-20] VITALS (7 sets, daily range): BP systolic 112–156; BP diastolic 72–83; PULSE 52–66; RESP 18; TEMP 36.7–37.1; O2SAT 94–98
[2020-01-20] MEDS: enoxaparin 40 mg/0.4 mL Syringe SUBCUT (10:36)
[2020-01-20] MEDS: dextrose 5%-sod chloride 0.45% 1,000 ML 100 ML IV ×2 (10:38→20:40)
--- NOTE | 2020-01-20 10:45 | PC.CHAP ---
Pastoral Care Encounter/Spiritual Assessment Type of Contact [] Declined licensed physical therapist assistant visit [] Patient/Family/Request visit [] Outpatient visit [] Follow-up visit [] Physician referral [] Code/Alert [x] Routine visit [] Staff referral [] Actively dying [] Patient sleeping [] Family support [] [] Out of room [] Palliative care [] [x] Receiving care in room [] Pre-surgical visit [] Trauma [] Long length of stay [] ICU visit [] Other: Relational/Emotional Strength [x] Patient feels connected with others/family/visitors/staff [] Distress [] Loneliness/isolation [] Abandonment Spirituality of Patient [x] Person of Inocencia [] Attends Mandaeism of their Inocencia [x] Believes in Prayer [] Reads Bible or Moravian materials [] There are Spiritual issues to be addressed City Weighmaster Interventions [x] Prayer [x] Active listening [x] Non-anxious presence [x] Spiritual/emotional support [] Crisis/trauma care [x] Spiritual counseling [] Bereavement support [] Provided bereavement packet [] Provided Bible/devotional materials [] Provided toy/stuffed animal, coloring book to patient or family member [] Provided Communion [] Anointing/[place] [] Salvation [x] Completed spiritual assessment [] Other: Impact on Illness or Injury [] Angry [] Fearful [x] Anxious [] Often cries [] Exhaustion [] Unable to work [] Unable to attend holiness [] Unable to walk/stand [] Unable to read [] Unable to drive [] Unable to eat/drink [] Unable to sleep [] Unable to be with family [] Patient intubated [] Other: Summary on antibods, will have tests tomorrow, doesn't know when he going , has a good attitude Time spent with patient 10 mins
[2020-01-20] MEDS: metoprolol tartrate 25 mg Tablet 12.5 MG PO (17:31)
[2020-01-20] MEDS: losartan 50 mg Tablet 150 MG PO (17:31)
[2020-01-20] MEDS: amiodarone 200 mg Tablet PO (17:32)
[2020-01-20] MEDS: atorvastatin 40 mg Tablet 20 MG PO (17:33)
--- NOTE | 2020-01-20 20:27 | P.HP_ITS ---
Providers/Chief Complaint Admitting Physician: Vanessa Schofield MD Primary Care Provider: Cristopher Carter MD Chief Complaint: left cardiac catheterization History of Present Illness Jeremiah Blackwell is a 79 year old male past medical history of hypertension, dyslipidemia, CAD status post CABG ?4 in 1999 in [place] with history of stent after LA in 2010 and history of proximal and distal SVG to PDA in October 2019 at the same time it was found that patient has occluded SVG to obtuse marginal only patent vessels were QUICK to LAD and SVG to PDA, obstructive sleep apnea on CPAP, fibromyalgia, CKD stage III underwent stress test ordered by Dr. Patrick due to worsening of shortness of breath and chest pain but he describe exactly same when he went through in the near past. He was found to have abnormal stress test, since he was not tolerating optimization of medicine it wa s decided that we will proceed with left heart cath. Patient has chronic kidney disease stage III therefore we will admit him today for IV hydration with intention to proceed with left heart cath in the morning if creatinine normalizes or at least at the baseline. Patient understand all risk benefit and alternative for the procedure. Patient understand the risk of contrast-induced nephropathy leading to short, permanent dialysis. He would like to proceed with it. Review of Systems Eyes: Denies: photophobia Skin/Breast: Reports: surgical incision All/Imm: Denies: acute wheezing Medications/Allergies Home Medications Medication Instructions Recorded Confirmed Last Taken Type multivitamin 1 cap PO QAM 03/26/19 01/20/20 01/20/20 History nitroglycerin 0.4 mg sublingual 0.4 mg SUBLINGUAL Q5M PRN 03/26/19 01/20/20 10/15/19 History tablet ascorbate calcium (vitamin C) 500 1,000 mg PO BID 04/29/19 01/20/20 01/20/20 History mg tablet losartan 150 mg PO DAILY 07/28/19 01/20/20 01/20/20 History atorvastatin 10 mg PO DAILY #30 tab 07/31/19 01/20/20 01/20/20 Rx clopidogrel 75 mg PO DAILY #90 tab 07/31/19 01/20/20 01/20/20 Rx apixaban 5 mg tablet 5 mg PO BID 90 Days #180 tab 11/04/19 01/20/20 01/18/20 Rx magnesium oxide 400 mg PO BID 11/04/19 01/20/20 01/20/20 History metoprolol tartrate 25 mg tablet 12.5 mg PO BID #90 tab 11/04/19 01/20/20 01/20/20 Rx amiodarone 200 mg tablet 200 mg PO DAILY tab 11/11/19 01/20/20 01/20/20 History isosorbide mononitrate 30 mg 30 mg PO DAILY 30 Days #30 tab 12/29/19 01/20/20 01/20/20 Rx tablet,extended release 24 hr furosemide 40 mg tablet 40 mg PO BID #60 tab 12/31/19 01/20/20 01/19/20 Rx potassium chloride 20 mEq 20 meq PO BID #60 tab 12/31/19 01/20/20 01/20/20 Rx tablet,extended release Allergies Allergy/AdvReac Type Severity Reaction Status Date / Time morphine Allergy RAPID Verified 11/04/19 16:03 PULSE, NUMBNESS PFSH Acute PFSH: Medical History (Updated 01/21/20 @ 15:20 by Vanessa Schofield MD) Arteriosclerotic cardiovascular disease Atherosclerotic heart disease of [place] coronary artery with other forms of angina pectoris Atrial fibrillation AF- post LA and stent 07/27/2019, anticoag with Eliquis The EKG today revealed sinus rhythm with features of old septal LA. ST-T changes in leads V5 V6, 1 and aVL, may suggest ischemia. The QTC was found to be 486. Chest pain, unspecified CHF (congestive heart failure) CKD (chronic kidney disease) Essential (primary) hypertension Fatigue History of myocardial infarction 2010 s/p stent Hyperlipidemia, unspecified Surgical History S/P CABG x 4 QUICK to LAD, SVG to circumflex and obtuse marginal, SVG to RCA in 1999, [place], [place] S/P right coronary artery (RCA) stent placement 07/27/2019 SVG to RCA chronic occlusion SVG to OM Family History Brother CAD (coronary artery disease) Hypertension Stroke Father CAD (coronary artery disease) Stroke Mother CAD (coronary artery disease) Hypertension Stroke Social History Smoking and tobacco status: never smoked Alcohol intake: never Vitals/I&O/Wt Last Vital Signs Temp 98.0 F 01/20/20 15:11 Pulse 59 L 01/20/20 18:26 Resp 18 01/20/20 15:11 BP 112/72 01/20/20 17:31 Pulse Ox 95 01/20/20 18:26 01/20/20 01/20/20 01/20/20 06:59 14:59 22:59 Intake Total 240 / 240 Balance 240 / 240 Weight last 48 hrs Weight 182 lb 12.8 oz Physical Exam Narrative: EXAM NARRATIVE: GENERAL: Patient is alert, awake and oriented x3. NECK: No jugular vein distension. HEENT: No cyanosis. No icterus. No pallor. HEART: Regular S1 and S2. No murmur, rub or gallop. LUNGS: Clear to auscultate bilaterally. ABDOMEN: Soft, nontender and nondistended. Positive bowel sounds. No guarding, rebound or tenderness. CENTRAL NERVOUS SYSTEM: Grossly nonfocal. EXTREMITIES: Lower extremities without edema bilaterally. Data : 01/17/20 10:14 01/21/20 05:42 A&P Assessment and plan (1) Atherosclerotic heart disease of [place] coronary artery with other forms of angina pectoris: Due to worsening of chest pain abnormal stress test we will proceed with left heart cath in the morning. Continue current regimen so far. Patient has been admitted for IV hydration today. Status: Acute (2) CHF (congestive heart failure): Appear to be well compensated we will hold diuretics tonight and give patient some IV fluid. Status: Acute Qualifiers: Heart failure chronicity: acute on chronic Heart failure type: diastolic Qualified Code(s): I50.33 - Acute on chronic diastolic (congestive) heart failure (3) Atrial fibrillation: Rate controlled. Status: Acute Qualifiers: Atrial fibrillation type: persistent (not longstanding) Qualified Code(s): I48.19 - Other persistent atrial fibrillation (4) CKD (chronic kidney disease): Due to worsening of creatinine will admit the patient today and start him on IV fluid I will hold diuretics. Baseline creatinine is 1.5 once it improved we will proceed with left heart cath. Status: Acute Attestations Medical Necessity Statement*: Patient require continuation hospitalization for above defined care. Coding Level of Care Code New Pt Acute Brilliandeer Lopper for [facility] Patient Type New Medical Decision Making Moderate Complexity Diagnoses Atherosclerotic heart disease of [place] coronary artery with other forms of angina pectoris I25.118 CHF (congestive heart failure) I50.33 Heart failure chronicity: acute on chronic Heart failure type: diastolic Atrial fibrillation I48.19 Atrial fibrillation type: persistent (not longstanding) CKD (chronic kidney disease) N18.9
[2020-01-21] VITALS (26 sets, daily range): BP systolic 108–172; BP diastolic 67–90; PULSE 52–65; RESP 14–26; TEMP 35.9–37.1; O2SAT 92–99
[2020-01-21] MEDS: diphenhydrAMINE 50 mg Capsule PO (06:17)
[2020-01-21 06:45] LABS: Blood Urea Nitrogen 20 mg/dL (8-23); Calcium 8.9 mg/dL (8.5-10.5); Carbon Dioxide 23 mmol/L (22-29); Chloride 106 mmol/L (98-107); Glucose 110 mg/dL (65-115); Osmolality Calculated 291 mOsm/kg (285-295); Sodium 139 mmol/L (136-145)
--- NOTE | 2020-01-21 07:04 | XACV_ITS ---
Exam Room: [facility] Ht: 170 cm Wt: 82 kg BSA: 1.99 m2 Gender: Male : 1940 Any Known Allergies: Morphine Exam Priority: Routine Procedure(s): Procedure Description: Diagnostic procedure Procedure Description: Venous Graft Catheterization Procedure Description: QUICK Graft Catheterization Procedure Description: Coronary Angiography Diagnostic Cath Status: Urgent Diagnostic Findings * LM has 0% stenosis. * pLAD to mLAD: Severe 100% stenosis, ISAAC: 0 flow. * pCIRC: Severe 100% stenosis, ISAAC: 0 flow. * pRCA: Severe 100% stenosis, ISAAC: 0 flow. * Three grafts visualized. * QUICK to dLAD: patent. * SVG to 1st OM: 100% stenosis, ISAAC: 0 flow. * SVG to RPDA: patent. * Coronary angiography shows right dominance. Conclusions 1. There is severe coronary artery disease with three vessel disease. 2. two grafts patent, and one graft diseased. 3. Patient has prior CABG. 4. Indication for 5. angiogram: 6. Worsening of shortness of breath 7. and chest pressure despite optimization of medicine 8. , abnormal stress test. Recommendations * Continue current medical management and risk factor modification. Diagnostic RX Recommendation: medical therapy and/or counseling Pressures Phase:Rest AO : 167 / 82 ( 113 ) @ 2:14:00 AM 164 / 66 ( 102 ) @ 2:24:00 AM Clinical Evaluation EBL: 5mL-10mL Procedural Details Pre-Procedure Time Out. Identified patient by full name and date of as verbalized by the patient/guarantor. Does the consent match the physician's order: Yes. Accurate & Complete Informed Consent: Yes. Inpatient/Outpatient History & Physical on Chart: Yes. If H&P is completed, is and addenduem needed: No; If yes, is the addendum complete: N/A. Visualize and Verify Site with Patient/Guarantor: N/A. Relevant Radiology Images available: N/A. Pre-op teaching completed and patient verbalized understanding. The risks, benefits, and alternatives of sedation and/or procedure were discussed by physician. The patient agrees to continue. Procedure started. [facility] Clinical Fraility Score: 4: Vulnerable. Boat Rental Clerk Indications: Worsening Angina, abnormal stress test. Chest Pain Symptom Assessment: Typical Angina Symptoms. Cardiovascular Instability: No. Correct patient, site and procedure confirmed by cath team. PERRLA. Strong, equal hand director internal control bilaterally. Lungs clear x 5 lobes. IV Site on Arrival: 18 gauge in the left hand. IV Site on Arrival: 20 gauge in the right hand. IV Fluids: 0.9% NaCl at KVO. 0 mL infused prior to clinical lab scientist. Pre Procedural Pulses: bilateral dorsalis pedis was Doppled. Pre Procedural Pulses: bilateral posterior tibial was Doppled. Oxygen started at 2liters/min via nasal canula. bilateral groins was prepped with chloroprep then draped in the usual sterile fashion. Baseline sample Acquired. HR: 65 BPM. Physician notified. Equipment: 6F - Femoral. Cardiac Cath Pack. ACIST Manifold Kit Model BT 2000. Heparinized Saline (2 units/mL), 1000 mL bag. Kit, Micropuncture. Physician arrived. Physician scrubbed in. Immediate Pre-Procedure Time Out. Correct Patient: Yes; Correct Procedure: Yes; Correct Site: Yes; Correct Patient Position: Yes; Correct Supplies: Yes; Dried Flammable Prep: Yes; Blood Products Available: N/A;. Lidocaine 1% infiltrated to the right groin. Arterial access obtained with micropuncture set. Wire and needle out. Arterial access obtained with micropuncture set. A 5 tristanian JL4 catheter in over wire. Catheter out. Inventory is CRD 6FR XB 3 GUIDE. 6 tristanian XB 3 guide catheter was inserted over the wire. Guide catheter out. A 6 tristanian AL1 catheter in over wire. Catheter out. Inventory is CRD 6FR JL 4 GUIDE. 6 tristanian JL 4 guide catheter was inserted over the wire. Guide catheter out. A 5 tristanian JR4 catheter in over wire. Multiple views taken of left coronary artery. Multiple views taken of right coronary artery. SVG's to RCA visualized and patent. QUICK to LAD visualized. Catheter out. SVG to OM occluded. Physician scrubbed out. A Manual Compression was successful obtaining hemostatsis at the Right Femoral artery insertion site. Sheath(s) removed and manual pressure held until hemostasis was achieved. Sterile 4x4 and Op-site applied to the puncture site. No oozing or hematoma noted. Post sheath removal instructions were given and the patient verbalized understanding. Post Procedure: Pulses reassessed and unchanged. PERRLA. Strong, equal hand director internal control bilaterally. No VTE prophylaxis required. Medication's Wasted: Lidocaine 1% = 10 mL. Medication's Wasted: Heparin = 1000 units. Medication's Wasted: Other = versed 1 mg. Total IV fluids: 89 mL. Contrast type used: Omnipaque 300 mgI/mL, 500 mL bottle. Post-op diagnosis: severe multi vessel CAD, patent SVG to RCA, patent QUICK. Complications: none. Estimated blood loss: 5mL-10mL. Procedure completed. Patient transferred by bed to 1st floor. Vital chart was stopped. Access Site Site: Right Femoral artery Sheath Size: 6 Fr Hemostasis Method: Manual Compression Hemostasis Success: Successful Procedure Medications Start: 7:46 AM Stop: 7:46 AM Medication: Fentanyl Amount: 50 mcg Route: I.V. Start: 7:50 AM Stop: 7:50 AM Medication: Versed Amount: 1 mg Route: I.V. Start: 7:54 AM Stop: 7:54 AM Medication: Versed Amount: 1 mg Route: I.V. Start: 8:04 AM Stop: 8:04 AM Medication: Versed Amount: 1 mg Route: I.V. Start: 8:04 AM Stop: 8:04 AM Medication: Fentanyl Amount: 50 mcg Route: I.V. I, the attending physician, have reviewed and verified all procedure medications. Yes, all medications given per verbal order History/Risk Factors Hypertension: Yes Dyslipidemia: No Peripheral Arterial Disease (PAD): No Myocardial Infarction (MA): Yes Obesity: No Renal Disease: No Prior Interventions PCI: Yes CABG: Yes Valve Surgery: No Report Signatures Finalized by Vanessa Schofield MD on 02/02/2020 07:33 PM
--- NOTE | 2020-01-21 07:31 | PC.NURSE ---
Patient to lab technician at this time. VSS. Patient A&O.
--- NOTE | 2020-01-21 07:55 | W.PM.OPSUD ---
Surgery/Procedure H&P Update DATE OF PROCEDURE: January 21, 2020 DATE H&P PERFORMED: 07/27/19 H&P UPDATE INFORMATION: I have reviewed H&P completed within last 30 days, I have examined patient prior to procedure and No changes to prior documentation PREOP DIAGNOSIS: Abnormal stress test, worsening of angina despite of optimization of medicine PLANNED PROCEDURE: Operation Date: 01/21/20 07:00 Proposed Procedures p left Cardiac Catheterization I50.33(Left) - Vanessa Schofield MD PATIENT REASSESSED PRIOR TO SEDATION, WITH NO CHANGE NOTED: Yes PHYSICAL EXAM: alert, oriented x 3 and clear to auscultation bilaterally AIRWAY EVAL/ANESTHESIA PLAN: ASA II, Risks, benefits & alternatives of sedation and/or procedure discussed and Patient agrees to continue as planned
--- NOTE | 2020-01-21 09:06 | P.DS_ITS ---
Discharge Providers Date of Admission: 01/20/20 08:48 Date of Discharge: January 21, 2020 Attending Provider at Admission: Vanessa Schofield MD Attending Provider at Discharge: Vanessa Schofield MD Primary Care Provider: Cristopher Carter MD Diagnoses at Discharge Discharge Diagnosis (1) Atherosclerotic heart disease of [place] coronary artery with other forms of angina pectoris: Status: Acute (2) CHF (congestive heart failure): Status: Acute Qualifiers: Heart failure chronicity: acute on chronic Heart failure type: diastolic Qualified Code(s): I50.33 - Acute on chronic diastolic (congestive) heart failure (3) Atrial fibrillation: Status: Acute Permanent problem details: AF- post NM and stent 07/27/2019, anticoag with Eliquis The EKG today revealed sinus rhythm with features of old septal NM. ST-T changes in leads V5 V6, 1 and aVL, may suggest ischemia. The QTC was found to be 486. Qualifiers: Atrial fibrillation type: persistent (not longstanding) Qualified Code(s): I48.19 - Other persistent atrial fibrillation Reason for Visit Reason for Visit: left cardiac catheterization Hospital Course Discharge Summary: 79-year-old male past medical history significant for extensive coronary artery disease with more than 20-year post CABG history of m ultiple stents history of ST elevation NM in October when proximal and distal SVG to or CVA was treated with 2 drug-eluting stents CKD heart failure atrial fibrillation underwent coronary angiogram for worsening of angina shortness of breath and abnormal stress test. He was noted to have patent SVG to RCA with proximal and distal stents with good flow, QUICK to LAD was patent left main is patent LAD, RCA and proximal circumflex is chronically occluded. Medical management has been advised. Due to chronic renal failure patient was given IV fluid diuretics were stopped last night his creatinine improved from 1.5-1.3. He underwent left heart cath therefore today. Post-cath patient had no problem. Ranolazine was added to the regimen. He is being discharged. He will be follow-up with us in 7 days. We will check BMP then. Physical Exam Narrative: EXAM NARRATIVE: GENERAL: Patient is alert, awake and oriented x3. NECK: No jugular vein distension. HEENT: No cyanosis. No icterus. No pallor. HEART: Regular S1 and S2. No murmur, rub or gallop. LUNGS: Clear to auscultate bilaterally. ABDOMEN: Soft, nontender and nondistended. Positive bowel sounds. No guarding, rebound or tenderness. CENTRAL NERVOUS SYSTEM: Grossly nonfocal. EXTREMITIES: Lower extremities without edema bilaterally. Const: COMMON NORMALS: alert Resp: COMMON NORMALS: clear to auscultation bilaterally AUSCULTATION: clear to auscultation bilaterally Neuro: SENSORIUM/ORIENTATION: Yes alert Discharge Data Data Completed and Pending: Pending at discharge Category Date Time Status ACCOUNT EXECUTIVE SOFTWARE SALES request for service Routin e Exams 01/21/20 07:04 Ordered Basic Metabolic P marvin AM LABS Lab 01/22/20 04:00 Ordered Basic Metabolic P marvin AM LABS Lab 01/23/20 04:00 Ordered Labs from last 24 hours 01/21/20 05:42 Sodium 139 Potassium 4.0 Chloride 106 Carbon Dioxide 23 Anion Gap 14.0 BUN 20 Creatinine 1.3 H GFR Calculation Not Reportable Glucose 110 Calculated Osmolal ity 291 Calcium 8.9 Vitals: Last Vital Signs Temp 97.4 F L 01/21/20 04:00 Pulse 52 L 01/21/20 04:00 Resp 14 01/21/20 04:00 BP 152/82 01/21/20 04:00 Pulse Ox 96 01/21/20 04:00 Discharge Plan Discharge Patient Disposition: Home Condition: Stable Prescriptions: New ranolazine 500 mg tablet extended release 12 hr 500 mg PO BID Qty: 60 RF: 1 Continued amiodarone 200 mg tablet 200 mg PO DAILY RF: 0 nitroglycerin 0.4 mg tablet, sublingual 0.4 mg SUBLINGUAL Q5M PRN (Reason: Chest pain) RF: 0 multivitamin Capsule 1 cap PO QAM RF: 0 ascorbate calcium (vitamin C) 500 mg tablet 1,000 mg PO BID RF: 0 magnesium oxide 400 mg magnesium tablet 400 mg PO BID RF: 0 Eliquis 5 mg tablet 5 mg PO BID 90 Days Qty: 180 RF: 3 metoprolol tartrate 25 mg tablet 12.5 mg PO BID Qty: 90 RF: 3 isosorbide mononitrate 30 mg tablet extended release 24 hr 30 mg PO DAILY 30 Days Qty: 30 RF: 5 furosemide 40 mg tablet 40 mg PO BID Qty: 60 RF: 3 potassium chloride 20 mEq tablet extended release 20 meq PO BID Qty: 60 RF: 3 losartan 100 mg Tablet 150 mg PO DAILY RF: 0 clopidogrel 75 mg Tablet 75 mg PO DAILY Qty: 90 RF: 3 atorvastatin 10 mg tablet 10 mg PO DAILY Qty: 30 RF: 4 Discharge Orders: Discharge Order (Routine); Ordered 01/21/20 Ordered By: Vanessa Schofield Discharge Diet: Cardiac Discharge Activity: Increase activity as tolerated Patient Instructions: Left Heart Catheterization (DC) Activity Restrictions/Additional Instructions: Follow-up with Dr. Schofield in 7 to 10 days. Discharge Attestations Time Spent in Discharge Care*: greater than 30 min Quality Metrics Clinical Quality Measures During this hospital stay, did patient experience: None Coding Level of Care Code Established Pt Acute Field Agronomist for [facility]lin [facility] Patient Type Established History Detailed Exam Detailed Medical Decision Making Moderate Complexity Diagnoses Atherosclerotic heart disease of [place] coronary artery with other forms of angina pectoris I25.118 CHF (congestive heart failure) I50.33 Heart failure chronicity: acute on chronic Heart failure type: diastolic Atrial fibrillation I48.19 Atrial fibrillation type: persistent (not longstanding)
--- NOTE | 2020-01-21 10:17 | PC.NURSE ---
Patient arrived to CSU from home performance laborer at 0910. 2 nurse verification of right groin. Sheath pulled at 0845 by home performance laborer. dressing in place, CDI, no hematoma noted. Patient educated on activity restrictions. Nurse to continue to monitor. Telephone order received from Dr. Schofield to hold 1000 lovenox dose, increase fluid rate to 100 ml/hr, run for 6 hours then discontinue.
[2020-01-21] MEDS: dextrose 5%-sod chloride 0.45% 1,000 ML 100 ML IV (10:55)
--- NOTE | 2020-01-21 11:00 | PC.NURSE ---
Dr. Schofield notified at 1045 that patient was experiencing SOB with expiratory wheezes in bilateral bases. Physician gave telephone order to dc fluids and administer 40 mg IVP lasix now. Start times of scheduled medications clarified. Dr. Schofield gave telephone to administer losartan 150 mg, imdur 30 mg, plavix 75 mg, and amiodarone 200 mg now. RBTO. Nurse to continue to monitor.
[2020-01-21] MEDS: FUROsemide 10 mg/mL SDV 4mL 40 MG IVP (11:15)
[2020-01-21] MEDS: losartan 50 mg Tablet 150 MG PO (11:19)
[2020-01-21] MEDS: isosorbide mononitrate ER 30 mg Tablet PO (11:20)
[2020-01-21] MEDS: clopidogrel 75 mg Tablet PO (11:20)
[2020-01-21] MEDS: amiodarone 200 mg Tablet PO (11:20)
--- NOTE | 2020-01-21 12:10 | PC.CHAP ---
Pastoral Care Encounter/Spiritual Assessment Type of Contact [] Declined food vendor visit [] Patient/Family/Request visit [] Outpatient visit [] Follow-up visit [] Physician referral [] Code/Alert [xx] Routine visit [] Staff referral [] Actively dying [] Patient sleeping [] Family support [] [] Out of room [] Palliative care [] [] Receiving care in room [] Pre-surgical visit [] Trauma [] Long length of stay [] ICU visit [] Other: Relational/Emotional Strength [xx] Patient feels connected with others/family/visitors/staff [] Distress [] Loneliness/isolation [] Abandonment Spirituality of Patient [xx] Person of Inocencia [xx] Attends Anabaptist of their Inocencia [xx] Believes in Prayer [xx] Reads Bible or Roman Catholic materials [] There are Spiritual issues to be addressed Quality Compliance Coordinator Interventions [xx] Prayer [xx] Active listening [xx] Non-anxious presence [] Spiritual/emotional support [] Crisis/trauma care [] Spiritual counseling [] Bereavement support [] Provided bereavement packet [] Provided Bible/devotional materials [] Provided toy/stuffed animal, coloring book to patient or family member [] Provided Communion [] Anointing/[place] [] Salvation [xx] Completed spiritual assessment [] Other: Impact on Illness or Injury [] Angry [] Fearful [] Anxious [] Often cries [] Exhaustion [] Unable to work [] Unable to attend synagogue [] Unable to walk/stand [] Unable to read [] Unable to drive [] Unable to eat/drink [] Unable to sleep [] Unable to be with family [] Patient intubated [] Other: Summary Pt concerned that his body is wearing out but his mind is not. He was/is active in spiritual counseling at his [facility] but he is no longer physically able to continue and is looking to God to find new direction and purpose. He is not ready to give up yet even if his body is breaking down. He will continue to push on . Time spent with patient 17 minutes Quality Compliance Coordinator Marlena Bunn
--- NOTE | 2020-01-21 16:48 | PC.NURSE ---
Patient ambulated in [place]. Site reassessed, asymptomatic. Nurse to continue to monitor.
--- NOTE | 2020-01-21 17:26 | PC.NURSE ---
Discharge instructions given per the physician's instructions. Patient verbalized understanding and did not have any further questions. IVs have been removed. Patient is dressing self. is at bedside to take patient home. No needs identified at this time. telephone order received from Dr. Schofield to hold evening metoprolol due to HR of 50-60s sinus jem. RBTO.
== END 2020-01-21 17:39 | disposition home or self-care (01) ==
LOC: MEDSURG 09:38 → CSU 01-21 00:56
PROVIDERS: Admitting Provider Internal Medicine Cardiovascular Disease; PCP Family Medicine; Visit Provider Internal Medicine Cardiovascular Disease
DX: I25.118 Atherosclerotic heart disease of native coronary artery with other forms of angina pectoris (principal); I25.718 Atherosclerosis of autologous vein coronary artery bypass graft(s) with other forms of angina pectoris; I13.0 Hypertensive heart and chronic kidney disease with heart failure and stage 1 through stage 4 chronic kidney disease, or unspecified chronic kidney disease; I50.33 Acute on chronic diastolic (congestive) heart failure; I48.19 Other persistent atrial fibrillation; E78.5 Hyperlipidemia, unspecified; Z95.1 Presence of aortocoronary bypass graft; I25.2 Old myocardial infarction; G47.33 Obstructive sleep apnea (adult) (pediatric); N18.30 Chronic kidney disease, stage 3 unspecified; Z79.02 Long term (current) use of antithrombotics/antiplatelets; Z79.01 Long term (current) use of anticoagulants; Z95.5 Presence of coronary angioplasty implant and graft
CPT/HCPCS: 12345; 36415; 80048; 83880; 84443; 85025; 93455; 94660; 94664; 96360; 96361; 96372; 96375; C1769; C1887; C1894; G0378; G0379; J1644; J1650; J1940; J2250; J3010; J7799; Q0163; Q9967

== ENCOUNTER 2020-02-04 09:13 | Outpatient (CLI) | payer MEDICARE, SELFPAY ==
--- NOTE | 2020-02-04 09:20 | XR_ITS ---
WS: [id number] Exam: XR chest 2V* [id number] Date/Time of Exam: 02/04/2020 9:20 AM Reason For Exam: I50.33 - Acute on chronic diastolic (congestive) heart failure Comparison 10/15/2019. The lungs are clear and fully inflated. Heart size is top limits normal. Signs of previous CABG surge ry. No pleural effusions. Regional bony structures are intact. Calcified granulomas in the lungs and mediastinum. XR/XR chest 2V* [id number] IMPRESSION: 1. No acute cardiopulmonary finding.
[2020-02-04 10:10] LABS: Anion Gap 15.6 (5-19); Blood Urea Nitrogen 36 mg/dL (8-23); Calcium 9.4 mg/dL (8.5-10.5); Carbon Dioxide 25 mmol/L (22-29); Chloride 95 mmol/L (98-107); Glucose 116 mg/dL (65-115); Osmolality Calculated 283 mOsm/kg (285-295); Potassium 3.6 mmol/L (3.5-5.1); Sodium 132 mmol/L (136-145)
== END 2020-02-04 09:14 | disposition home or self-care (01) ==
LOC: RAD 09:19
PROVIDERS: PCP Family Medicine; Visit Provider Nurse Practitioner Family
DX: I50.33 Acute on chronic diastolic (congestive) heart failure (principal)
CPT/HCPCS: 36415; 71046; 80048

== ENCOUNTER 2020-02-15 10:53 | Outpatient (RCR) | payer MEDICARE, SELFPAY | END 2020-03-16 23:59 | disposition home or self-care (01) | LOC: CR 10:53 | PROVIDERS: PCP Family Medicine; Referring Provider Internal Medicine Cardiovascular Disease; Visit Provider Internal Medicine Cardiovascular Disease | DX: Z95.5 Presence of coronary angioplasty implant and graft (principal) | CPT/HCPCS: 93798 ==

== ENCOUNTER 2020-02-21 07:38 | Outpatient (CLI) | payer MEDICARE, SELFPAY ==
--- NOTE | 2020-02-21 08:00 | USCV_ITS ---
Jeremiah Blackwell Age: 79 Gender: M : 1940 Exam Date: 02/21/2020 07:53 Ordering Phys: Judy Gama Technologist: Jo-Ann Solorio Exam Location: [facility] [place] Indication: DIASTOLIC DISFUNCTION BP: 145 / 75 HR: 53 Rhythm: Sinus Technical Quality: Adequate MEASUREMENTS (Male / Female) Normal Values 2D ECHO LV Diastolic Diameter PLAX 4.8 cm 4.2 - 5.9 / 3.9 - 5.3 cm LV Systolic Diameter PLAX 2.1 cm LV Chamber Size 5.5 cm IVS Diastolic Thickness 1.5 cm 0.6 - 1.0 / 0.6 - 0.9 cm IVS Systolic Thickness 1.8 cm LVPW Diastolic Thickness 1.7 cm 0.6 - 1.0 / 0.6 - 0.9 cm LVPW Systolic Thickness 1.8 cm RV Chamber Size 4.0 cm LVOT Diameter 2.0 cm LV Ejection Fraction 2D Teich 86.1 % LV Ejection Fraction MOD 2C 34.6 % LV Ejection Fraction 2C AL 33.1 % LA Diameter 4.2 cm LA Width 3.2 cm LA Height 4.1 cm RA Width 4.2 cm RA Height 3.9 cm Aorta at Sinotubular Diameter 3.5 cm M-MODE LV Diastolic Diameter MM 4.8 cm 4.2 - 5.9 / 3.9 - 5.3 cm LV Systolic Diameter MM 3.7 cm LV Ejection Fraction MM Teich 46.2 % IVS Diastolic Thickness MM 1.2 cm 0.6 - 1.0 / 0.6 - 0.9 cm IVS Systolic Thickness MM 1.6 cm LVPW Diastolic Thickness MM 1.3 cm 0.6 - 1.0 / 0.6 - 0.9 cm LVPW Systolic Thickness MM 1.9 cm RV Diastolic Diameter MM 1.5 cm Aortic Annulus Diameter 4.0 cm LA Ao Ratio MM 1.1 MV E Point Septal Separation 0.4 cm DOPPLER AV Peak Velocity 173.0 cm/s LVOT Peak Velocity 97.0 cm/s AV Area Cont Eq vti 2.0 cm squared AV Area Cont Eq pk 1.8 cm squared MV Area PHT 3.6 cm squared Mitral E to A Ratio 0.8 MV E' Velocity 44.0 cm/s Mitral E to MV E' Ratio 12.5 Mitral E to LV E' Lateral Ratio 12.2 Mitral E to LV E' Septal Ratio 13.1 TR Peak Velocity 277.0 cm/s TR Peak Gradient 30.7 mmHg TR Mean Velocity 194.7 cm/s TR Mean Gradient 17.5 mmHg TR Velocity Time Integral 97.6 cm TV Peak E Velocity 76.0 cm/s Right Atrial Pressure 3.0 mmHg Pulmonary Artery Systolic Pressu 33.7 mmHg PV Peak Velocity 77.0 cm/s RV Acceleration Time 0.1 s RV Ejection Time 0.3 s RV AcT/ET 0.3 FINDINGS Left Ventricle Moderately increased left ventricular cavity size. Moderately decreased left ventricular systolic function. Left ventricular ejection fraction is estimated at 46 %. Global left ventricular hypokinesis. Grade I/IV diastolic dysfunction (abnormal relaxation filling pattern), normal to mildly elevated filling pressures. Right Ventricle The right ventricle is normal in size and function. Right Atrium The right atrium is normal in size. Left Atrium Mildly increased left atrial size. Mitral Valve Moderately thickened mitral valve. Mild mitral annular calcification. No mitral valve stenosis. Mild-moderate mitral valve regurgitation. Aortic Valve Moderate aortic valve calcification. No aortic valve stenosis. Moderate aortic valve regurgitation. Tricuspid Valve Mild tricuspid valve regurgitation. Pulmonic Valve Trace pulmonary valve regurgitation. Pericardium Normal pericardium without effusion. Aorta Normal ascending aorta dimension. CONCLUSIONS 1-Moderately increased left ventricular cavity size. Moderately decreased left ventricular systolic function. Left ventricular ejection fraction is estimated at 46 %. Global left ventricular hypokinesis. Grade I/IV diastolic dysfunction (abnormal relaxation filling pattern), normal to mildly elevated filling pressures. 2-Mildly increased left atrial size. 3-Moderate aortic valve calcification. No aortic valve stenosis. Moderate aortic valve regurgitation. 4-Moderately thickened mitral valve. Mild mitral annular calcification. No mitral valve stenosis. Mild-moderate mitral valve regurgitation. 5-Mild tricuspid valve regurgitation. 6-There is no pericardial effusion. 7-Pulmonary artery systolic pressure is within normal limits. 8-When compared to the prior echocardiogram dated 07/28/2019 left ventricle ejection fraction has worsened from normal to moderately reduced while aortic regurgitation has worsened from trace to moderate now Vanessa Schofield MD (Electronically Signed) Final Date: 23 February 2020 09:51 S
== END 2020-02-21 07:39 | disposition home or self-care (01) ==
PROVIDERS: PCP Family Medicine; Visit Provider Nurse Practitioner Family
DX: I50.33 Acute on chronic diastolic (congestive) heart failure (principal); I08.3 Combined rheumatic disorders of mitral, aortic and tricuspid valves
CPT/HCPCS: 80048; 93306

== ENCOUNTER 2020-03-17 13:47 | Outpatient (RCR) | payer SELFPAY | END 2020-04-16 23:59 | disposition home or self-care (01) | LOC: CR 13:47 | PROVIDERS: PCP Family Medicine; Referring Provider Internal Medicine Cardiovascular Disease; Visit Provider Internal Medicine Cardiovascular Disease | DX: Z95.5 Presence of coronary angioplasty implant and graft (principal) ==

== ENCOUNTER → 2020-03-20 15:57 | Outpatient (BNVA) | payer MEDICARE, SELFPAY | PROVIDERS: PCP Family Medicine; Visit Provider Nurse Practitioner Family | DX: I50.33 Acute on chronic diastolic (congestive) heart failure (principal) | CPT/HCPCS: 80053 ==

== ENCOUNTER 2020-03-24 08:48 | Emergency (ER) | payer MEDICARE, SELFPAY ==
[2020-03-24] VITALS (8 sets, daily range): BP systolic 112–139; BP diastolic 63–83; PULSE 60–68; RESP 18–28; TEMP 36.5; O2SAT 92–100; BMI 27.6
--- NOTE | 2020-03-24 09:12 | XR_ITS ---
WS: [id number] Portable AP upright chest, 03/24/2020 Clinical Data: SOB/CHF Comparison: PA and lateral chest, 02/04/2020. Findings: No nodules, masses or effusions are seen. The heart is enlarged. The pulmonary vascularity is not increased. No pneumonia or pneumothorax is present. There are calcified granulomas in both hil a and a large calcified lymph node in the right tracheobronchial region. The aortic arch and descendi ng aorta show calcification and tortuosity. XR/XR chest 1V portable [id number] Impression: Cardiomegaly and atherosclerosis.
--- NOTE | 2020-03-24 09:12 | ECG_ITS ---
[facility] Test Date: 2020-03-24 Pat Name: Jeremiah Blackwell Department: Room: Gender: Male Director General: : 1940 Requested By: Audrey Greer Order Number: [id number] Toshia MD: Christoph Bustos M.D. Measurements Intervals [place] Rate: 62 P: 29 CA: 208 QRS: -18 QRSD: 110 T: 125 QT: 439 QTc: 449 Interpretive Statements SINUS RHYTHM POSSIBLE LEFT ATRIAL ENLARGEMENT [-0.1mV P WAVE IN V1/V2] LEFT VENTRICULAR HYPERTROPHY AND ST-T CHANGE [VOLTAGE CRITERIA PLUS ST/T ABNORMALITY] POSSIBLE SEPTAL MYOCARDIAL INFARCTION , PROBABLY OLD [30 ms Q WAVE IN V1/V2] INFERIOR MYOCARDIAL INFARCTION , OF INDETERMINATE AGE [40+ ms Q WAVE AND/OR ST/T ABNORMALITY IN II/aVF] Compared to ECG 10/15/2019 12:34:13 Left ventricular hypertrophy now present ST (T wave) deviation now present Ventricular premature complex(es) no longer present T-wave abnormality no longer present Possible ischemia no longer present Myocardial infarct finding still present Electronically Signed On 03-24-2020 17:16:14 ROD MILL OPERATOR by Christoph Bustos M.D. [id number]
--- NOTE | 2020-03-24 09:12 | ED_ITS ---
HPI - SOB/Dyspnea General: Chief Complaint: General Medical Stated Complaint: SOB/WEAKNESS/ RETAINING FLUID Time Seen by Provider: 03/24/20 09:04 Source: patient and family Mode of arrival: ambulatory Limitations: no limitations History of Present Illness: HPI Narrative: Patient is a very nice 79-year-old gentleman with a history of hypertension, dyslipidemia, CAD, SHELLIE on CPAP, fibromyalgia, CKD stage III, and CHF who presents to ED today along with his at the recommendation of his instructional technology teacher Dr. Schofield for retained fluid, shortness of breath, and weakness. Patient tells me he has had approximately a 10 pound weight gain over the past month. His fluid is predominantly contained to his abdomen. He is reporting decreased exercise tolerance. He reports weakness with even small activities. He denies orthopnea/PND. He does sleep with a CPAP for his SHELLIE. He was seen by cardiology recently and had his Lasix increased from 40 twice daily to 60 twice daily. They also placed patient on Metolazone. Last echo performed in Feb 2020 and showed EF at 46%. Associated symptoms: Deny abdominal pain, chest congestion, chest pain, extremity pain, fever(s), hemoptysis, lightheadedness, nausea, orthopnea, palpitations, syncope or vomiting Review of Systems Const: Denies: fever(s), chills, body aches, fatigue or malaise Eyes: Denies: change in vision, blurry vision, photophobia, floaters or seeing flashes ENMT: Denies: odynophagia Card: Reports: dyspnea on exertion; Denies: chest pain, palpitations, irregular heart rhythm, edema, swelling of feet/ankles, lightheadedness, syncope, pre-syncope, orthopnea, leg pain with e xertion or acrocyanosis Resp: Reports: dyspnea; Denies: productive cough, non-productive cough, wheezing, pain on inspiration, change in phlegm color, hemoptysis or chest congestion GI: Reports: other (abdominal distention ); Denies: abdominal pain, nausea, vomiting, diarrhea or change in stool character : Denies: flank pain, difficulty urinating, dysuria, urinary frequency or urinary urgency Musc: Denies: neck pain, back pain, extremity pain, extremity swelling, joint pain or joint swelling Skin/Breast: Denies: rash Neuro: Denies: headache(s), numbness in extremities, weakness in extremities or sensory changes PFS ED PFSH: Medical History Arteriosclerotic cardiovascular disease Atherosclerotic heart disease of [place] coronary artery with other forms of angina pectoris Atrial fibrillation AF- post TN and stent 07/27/2019, anticoag with Eliyasmine The EKG today revealed sinus rhythm with features of old septal TN. ST-T changes in leads V5 V6, 1 and aVL, may suggest ischemia. The QTC was found to be 486. Chest pain, unspecified CHF (congestive heart failure) CKD (chronic kidney disease) Essential (primary) hypertension Fatigue History of myocardial infarction 2010 s/p stent Hyperlipidemia, unspecified Surgical History S/P CABG x 4 QUICK to LAD, SVG to circumflex and obtuse marginal, SVG to RCA in 1999, [place], [place] S/P right coronary artery (RCA) stent placement 07/27/2019 SVG to RCA chronic occlusion SVG to OM Family History Brother CAD (coronary artery disease) Hypertension Stroke Father CAD (coronary artery disease) Stroke Mother CAD (coronary artery disease) Hypertension Stroke Social History Smoking and tobacco status: never smoked Alcohol intake: never Physical Exam Const: COMMON NORMALS: no acute distress, average body habitus, patient oriented x3, no limitations, healthy appearing, alert and well nourished ORIENTATION/CONSCIOUSNESS: Yes awake HENMT: COMMON NORMALS: normocephalic and atraumatic HEAD & SCALP: normocephalic and atraumatic Chest: COMMONS NORMALS: normal inspection of the chest and normal palpation of entire chest wall Resp: COMMON NORMALS: normal respiratory effort and clear to auscultation bilaterally EFFORT & INSPECTION: Yes able to speak in complete sentences AUSCULTATION: clear to auscultation bilaterally Cardio: COMMON NORMALS: regular rate and regular rhythm RATE: regular rate RHYTHM: regular rhythm GI: COMMON NORMALS: non-tender INSPECTION: No caput medusae present and Yes other (distended abdomen) AUSCULTATION: Yes normoactive bowel sounds PALPATION: Yes Firmness to palpation present (GI), No Tenderness to palpation present (GI) and No Ascites present Extremity: COMMON NORMALS: normal to inspection, no clubbing, cyanosis or edema, no calf tenderness and no pedal edema Neuro: COMMON NORMALS: patient oriented x3 SENSORIUM/ORIENTATION: Yes alert Skin: COMMON NORMALS: no rashes or lesions noted GENERAL SKIN EXAM: no rashes or lesions noted Course Consultations: Consultation #1: Dr. Schofield-recommends CT ab/pelvis to evaluate for pts abdominal distention since BNP was only 501 and his abdominal US does not show any ascities. Recommends discontinuing his Metolazone and going back to his normal dose of Lasix due to his worsening kidney function. Vital Signs: Vital signs: Vital Signs Temperature 97.7 F 03/24/20 08:55 Pulse Rate 63 03/24/20 10:29 Respiratory Rate 28 H 03/24/20 10:29 Blood Pressure 125/75 03/24/20 10:29 Pulse Oximetry 96 03/24/20 10:29 MDM - SOB/Dyspnea MDM Narrative: Medical decision making narrative: Patient is a very nice 79-year-old gentleman who presents to ED today with complaints of a 10 pound weight gain, abdominal distention and shortness of breath over the past month. He is also complaining of some generalized weakness. Patient recently had his Lasix doubled and was placed on Metolazone by his cardiology office/Dr. Schofield. Patient's BNP today is 501. This is much lower than he has been previously. Patient's CXR shows stable cardiomegaly. Patient's abdominal US did not show ascites. I spoke to patient's instructional technology teacher Dr. Schofield who recommended CT abdomen and pelvis without contrast to evaluate further for his abdominal distention. This imaging did not give any specific pathology that would explain his distention. Patient has a history of CKD. BUN/Cr elevated today compared to his baseline. Dr. Schofield recommends stopping the Metolazone and reducing patient's Lasix back to his normal 40 mg twice daily. Patient has an appointment with Dr. Schofield in 1 week. Labs can be repeated on this visit. Patient's EKG without ischemic changes. He does have mild elevation in his troponin at 28 but this was felt to be related to the elevation of his BNP and kidney labs. He has no chest pains. At this point patient is stable for outpatient follow-up. Lab Data: Labs: Lab Results 03/24/20 03/24/20 03/24/20 Range/Units 09:55 09:55 09:55 WBC 5.6 (4.0-10.0) 10^3/ uL RBC 5.09 (4.1-5.3) 10^6/u L Hgb 15.4 (11.7-16.6) g/dL Hct 45.7 (42.0-52.0) % MCV 89.8 (80-94) fL MCH 30.3 (28.0-34.0) pg MCHC 33.7 (30.0-36.0) g/dL RDW 12.9 (12.1-15.1) % Plt Count 164 (130-400) 10^3/c mm MPV 10.7 H (7.4-10.4) fL Neut % (Auto) 63.9 % Lymph % (Auto) 22.3 % Warren % (Auto) 9.6 % Eos % (Auto) 3.0 % Baso % (Auto) 0.7 % Neut # (Auto) 3.60 (1.8-7.7) 10^3/u L Lymph # (Auto) 1.3 (0.8-4.8) 10^3/u L Warren # (Auto) 0.5 (0.2-0.9) 10^3/u L Eos # (Auto) 0.2 (0.0-0.8) 10^3/u L Baso # (Auto) 0.0 (0.0-0.1) 10^3/u L Nucleated RBC % (a uto) 0 % Nucleated RBCs # 0.0 /100WBC Sodium 139 (136-145) mmol/L Potassium 3.6 (3.5-5.1) mmol/L Chloride 98 (98-107) mmol/L Carbon Dioxide 27 (22-29) mmol/L Anion Gap 17.6 (5-19) BUN 47 H (8-23) mg/dL Creatinine 2.3 H (0.7-1.2) mg/dL GFR Calculation Not Reportable Glucose 147 H (65-115) mg/dL Calculated Osmolal ity 303 H (285-295) mOsm/k g Calcium 10.1 (8.5-10.5) mg/dL Total Bilirubin 0.9 (0.15-1.2) mg/dL AST 18 (0-40) U/L ALT 28 (0-41) U/L Alkaline Phosphata se 53 (40-130) IU/L Troponin T Baselin e 28 H (0-15) ng/L NT-Pro-B Natriuret Pep 501 H (0-450) pg/mL Total Protein 7.3 (6.6-8.7) g/dL Albumin 4.4 (3.5-5.2) g/dL Globulin 2.9 (1.3-4.6) g/dL Imaging Data^: CXR: Radiologist's impression: [employer] [address] [place] [id number] XRay Report Signed Patient: Jeremiah Blackwell #: [id number] : 2At#:[id number] Age/Sex: 79 / MADM Date: 03/24/20 [facility] Attending Dr: Ordering Provider/Ordering MD: Audrey Greer Date of Service: 03/24/20 Procedure(s): XR chest 1V portable [id number] Accession Number(s): [id number] Report Number: [id number] WS: [id number] Portable AP upright chest, 03/24/2020 Clinical Data: SOB/CHF Comparison: PA and lateral chest, 02/04/2020. Findings: No nodules, masses or effusions are seen. The heart is enlarged. The pulmonary vascularity is not increased. No pneumonia or pneumothorax is present. There are calcified granulomas in both johann and a large calcified lymph node in the right tracheobronchial region. The aortic arch and descending aorta show calcification and tortuosity. XR/XR chest 1V portable [id number] Impression: Cardiomegaly and atherosclerosis. Dictated By:Nirali Madrigal MD Signed By:Nirali Madriagl Date/Time:03/24/20925 DD/ 3 CT Abd/Pel: Radiologist's impression: [facility] [address] [address] Scan Report Signed Patient: Jeremiah Blackwell #: [id number] : 2Acct#:[id number] Age/Sex: 79 / MADM Date: 03/24/20 Loc: ERRoom/Bed: Attending Dr: Ordering Provider/Ordering MD: Audrey Greer Date of Service: 03/24/20 Procedure(s): CT abdomen pelvis [facility] [address] Accession Number(s): [id number] Report Number: [id number] WS: [id number] CT ABDOMEN AND PELVIS NONCONTRAST HISTORY: abdominal distention TECHNIQUE: Imaging performed through the abdomen and pelvis. Coronal and sagittal reformats are submitted. All CT scans at [facility] use at least one of these dose optimization techniques: automated exposure control; mA and/or kV adjustment per patient size (includes targeted exams where dose is matched to clinical indication); or iterative reconstruction. DLP: 913.28 mGy.cm COMPARISON: None available. Lower thorax: Benign granuloma RIGHT lower lobe. Liver: Normal size liver with a few scattered areas of decreased attenuation which are probably cysts. There are also granulomata. Mild hepatic steatosis. No bile duct dilatation. Gallbladder: Prior cholecystectomy. Pancreas: Normal size and attenuation. Normal pancreatic duct. No pancreatitis or mass. Spleen: Normal size spleen with granulomata. Adrenal glands: Normal. No mass. Right kidney: Mild perinephric stranding. There is a lobulated contour of the upper pole. This corresponds to the cyst seen on the recent ultrasound. Cannot characterize further without IV contrast. No hydronephrosis or obstruction. Left kidney: Mild perinephric stranding. Exophytic low-attenuation mass is probably a cyst measuring 1 cm from the upper pole. Aorta: Moderate to severe atherosclerosis abdominal aorta. No aneurysm. Atherosclerosis continues into the common iliac arteries. No free fluid, intraperitoneal air or significant lymphadenopathy. GI tract: Moderate distention of the stomach with food products and air fluid. No small bowel obstruction. The appendix is not identified. There are numerous diverticula in the descending and sigmoid colon. No adjacent inflammation or fluid. Abdominal wall: Negative. No hernia. Pelvis: Normally distended bladder. Prostate gland is slightly enlarged with encroachment into the bladder. No free fluid or adenopathy. Osseous structures: L4 anterolisthesis by 6 mm. No fracture. Mild LEFT convex curvature lumbar spine. CT/CT abdomen pelvis wo con [id number] IMPRESSION: 1. No acute abdominal or pelvic abnormalities are identified. 2. Moderate distention of the stomach with fluid and food products. No obstruction evident. 3. Extensive diverticulosis in the descending and sigmoid colon without acute diverticulitis. 4. No perforation identified. 5. No ascites. 6. Prior cholecystectomy. Dictated By:Nevin Espinal DO Signed By:Nevin Espinal DOSigned Date/Time:03/24/20 1158 DD/ 1152 Discharge Plan Discharge Patient Disposition: Home Clinical Impression: Chronic kidney disease (CKD), CHF (congestive heart failure) Condition: Stable Prescriptions: Discontinued metolazone 2.5 mg tablet 2.5 mg PO BID Qty: 14 RF: 0 No Action losartan 100 mg tablet 150 mg PO DIRECTED Qty: 135 RF: 3 amiodarone 200 mg tablet 100 mg PO DAILY RF: 0 furosemide 40 mg tablet 60 mg PO BID Qty: 60 RF: 3 potassium chloride 20 mEq tablet extended release 40 meq PO BID Qty: 60 RF: 3 nitroglycerin 0.4 mg tablet, sublingual 0.4 mg SUBLINGUAL Q5M PRN (Reason: Chest pain) RF: 0 multivitamin Capsule 1 cap PO QAM RF: 0 ascorbate calcium (vitamin C) 500 mg tablet 1,000 mg PO BID RF: 0 magnesium oxide 400 mg magnesium tablet 400 mg PO BID RF: 0 Eliquis 5 mg tablet 5 mg PO BID 90 Days Qty: 180 RF: 3 vitamin B complex [B Complex-Vitamin B12] Tablet 1 tab PO DAILY RF: 0 omega 3-bwu-kxo-fish oil [Fish Oil] 300-1,000 mg capsule 1 cap PO DAILY RF: 0 cholecalciferol (vitamin D3) 75 mcg (3,000 unit) tablet 25 mcg PO DAILY RF: 0 atorvastatin 10 mg tablet 10 mg PO DAILY Qty: 90 RF: 3 isosorbide mononitrate 30 mg tablet extended release 24 hr 30 mg PO BID Qty: 180 RF: 3 metoprolol succinate 25 mg tablet extended release 24 hr 12.5 mg PO .evening Qty: 30 RF: 5 clopidogrel 75 mg Tablet 75 mg PO DAILY Qty: 90 RF: 3 Discharge Orders: Discharge ED (Routine); Ordered 03/24/20 Ordered By: Audrey Greer Referrals: Cristopher Carter MD [Primary Care Provider] - Vanessa Schofield MD [Physician] - Activity Restrictions/Additional Instructions: As discussed discontinue the metolazone medication. Return to your normal Lasix dose of 40 mg twice daily. Please follow-up with your appointment with Dr. Figueredo in 1 week. He may recheck Coding Level of Care Code ED Route Sales Trainee for Chg Fwd Exam Comprehensive
--- NOTE | 2020-03-24 09:24 | US_ITS ---
WS: [id number] RIGHT UPPER QUADRANT ULTRASOUND HISTORY: abdominal distention COMPARISON: None available. Liver: 16.8 cm in length. Mildly enlarged liver. Coarsened echotexture and increased attenuation from hepatic steatosis. No mass or bile duct dilatation. Gallbladder: Not visualized. CBD: Not visualized. Pancreas: Not visualized. Right kidney: 9.2 cm in length. Increased echogenicity. No hydronephrosis. Cortical cyst mid kidney m easures 2.5 x 2.0 x 2.5 cm. Aorta and IVC: Not visualized. No ascites. US/US abdomen limited [id number] IMPRESSION: 1. No ascites. 2. Mild hepatic steatosis and hepatomegaly.
[2020-03-24 10:03] LABS: Basophils % 0.7 %; Eosinophils # 0.2 10^3/uL (0.0-0.8); Hematocrit 45.7 % (42.0-52.0); Hemoglobin 15.4 g/dL (11.7-16.6); Lymphocytes # 1.3 10^3/uL (0.8-4.8); Lymphocytes % 22.3 %; Mean Corpuscular HGB Conc 33.7 g/dL (30.0-36.0); Mean Corpuscular Hemoglobin 30.3 pg (28.0-34.0); Mean Corpuscular Volume 89.8 fL (80-94); Mean Platelet Volume 10.7 fL (7.4-10.4); Monocytes # 0.5 10^3/uL (0.2-0.9); Monocytes % 9.6 %; Neutrophils % 63.9 %; Nucleated Red Blood Cells % 0 %; Platelet Count 164 10^3/cmm (130-400); Red Blood Count 5.09 10^6/uL (4.1-5.3); Red Cell Distribution Width 12.9 % (12.1-15.1); White Blood Count 5.6 10^3/uL (4.0-10.0)
[2020-03-24 10:20] LABS: Troponin(5th) Baseline 28 ng/L (0-15)
[2020-03-24 10:28] LABS: NT Pro B Type Natriuretic Pept 501 pg/mL (0-450)
[2020-03-24 10:51] LABS: Alanine Aminotransferase 28 U/L (0-41); Albumin Level 4.4 g/dL (3.5-5.2); Alkaline Phosphatase 53 IU/L (40-130); Anion Gap 17.6 (5-19); Aspartate Amino Transferase 18 U/L (0-40); Blood Urea Nitrogen 47 mg/dL (8-23); Calcium 10.1 mg/dL (8.5-10.5); Carbon Dioxide 27 mmol/L (22-29); Chloride 98 mmol/L (98-107); Globulin 2.9 g/dL (1.3-4.6); Glucose 147 mg/dL (65-115); Osmolality Calculated 303 mOsm/kg (285-295); Potassium 3.6 mmol/L (3.5-5.1); Sodium 139 mmol/L (136-145); Total Bilirubin 0.9 mg/dL (0.15-1.2); Total Protein 7.3 g/dL (6.6-8.7)
[2020-03-24] MEDS: FUROsemide 10 mg/mL SDV 10mL 60 MG IVP (11:12)
--- NOTE | 2020-03-24 11:15 | CT_ITS ---
WS: [id number] CT ABDOMEN AND PELVIS NONCONTRAST HISTORY: abdominal distention TECHNIQUE: Imaging performed through the abdomen and pelvis. Coronal and sagittal reformats are submi tted. All CT scans at [facility] use at least one of these dose optimization techniques: automated exposure control; mA and/or kV adjustment per patient size (includes targeted exams where d ose is matched to clinical indication); or iterative reconstruction. DLP: 913.28 mGy.cm COMPARISON: None available. Lower thorax: Benign granuloma RIGHT lower lobe. Liver: Normal size liver with a few scattered areas of decreased attenuation which are probably cysts . There are also granulomata. Mild hepatic steatosis. No bile duct dilatation. Gallbladder: Prior cholecystectomy. Pancreas: Normal size and attenuation. Normal pancreatic duct. No pancreatitis or mass. Spleen: Normal size spleen with granulomata. Adrenal glands: Normal. No mass. Right kidney: Mild perinephric stranding. There is a lobulated contour of the upper pole. This corres ponds to the cyst seen on the recent ultrasound. Cannot characterize further without IV contrast. No hydronephrosis or obstruction. Left kidney: Mild perinephric stranding. Exophytic low-attenuation mass is probably a cyst measuring 1 cm from the upper pole. Aorta: Moderate to severe atherosclerosis abdominal aorta. No aneurysm. Atherosclerosis continues int o the common iliac arteries. No free fluid, intraperitoneal air or significant lymphadenopathy. GI tract: Moderate distention of the stomach with food products and air fluid. No small bowel obstruc tion. The appendix is not identified. There are numerous diverticula in the descending and sigmoid co stephen. No adjacent inflammation or fluid. Abdominal wall: Negative. No hernia. Pelvis: Normally distended bladder. Prostate gland is slightly enlarged with encroachment into the bl adder. No free fluid or adenopathy. Osseous structures: L4 anterolisthesis by 6 mm. No fracture. Mild LEFT convex curvature lumbar spine. CT/CT abdomen pelvis wo con [id number] IMPRESSION: 1. No acute abdominal or pelvic abnormalities are identified. 2. Moderate distention of the stomach with fluid and food products. No obstruc tion evident. 3. Extensive diverticulosis in the descending and sigmoid colon without acute diverticulitis. 4. No perforation identified. 5. No ascites. 6. Prior cholecystectomy.
== END 2020-03-24 13:02 | disposition home or self-care (01) ==
PROVIDERS: Emergency Provider Physician Assistant; PCP Family Medicine
DX: I13.0 Hypertensive heart and chronic kidney disease with heart failure and stage 1 through stage 4 chronic kidney disease, or unspecified chronic kidney disease (principal); N18.9 Chronic kidney disease, unspecified; I50.9 Heart failure, unspecified; I25.118 Atherosclerotic heart disease of native coronary artery with other forms of angina pectoris; I48.91 Unspecified atrial fibrillation; I25.2 Old myocardial infarction; E78.5 Hyperlipidemia, unspecified; Z95.1 Presence of aortocoronary bypass graft
CPT/HCPCS: 12345; 71045; 74176; 76705; 80053; 83880; 84484; 85025; 93005; 96374; 99282; 99283; J1940

== ENCOUNTER → 2020-03-28 11:08 | Outpatient (BNVA) | payer MEDICARE, SELFPAY | PROVIDERS: PCP Family Medicine; Visit Provider Internal Medicine Cardiovascular Disease | DX: I48.19 Other persistent atrial fibrillation (principal); R06.02 Shortness of breath; I50.9 Heart failure, unspecified | CPT/HCPCS: 85379 ==

== ENCOUNTER 2020-03-29 12:06 | Outpatient (CLI) | payer MEDICARE, SELFPAY ==
--- NOTE | 2020-03-29 12:19 | XR_ITS ---
WS: [id number] Chest 2 views, 03/29/2020 Clinical Data: I50.9 - Heart failure, unspecified Comparison: Portable chest, 03/24/2020. Findings: No nodules, masses or effusions are seen. The heart is normal. The pulmonary vascularity is not increased. No pneumonia or pneumothorax is seen. There is a calcified right tracheobronchial lym ph node and calcified bilateral hilar lymph nodes. There are midline sternotomy sutures. The aortic a rch and descending aorta show tortuosity. There is a dextroscoliosis. There are clips in the right up per quadrant from a cholecystectomy. XR/XR chest 2V* [id number] Impression: Old granulomatous disease and atherosclerosis.
== END 2020-03-29 12:07 | disposition home or self-care (01) ==
LOC: RAD 12:18
PROVIDERS: PCP Family Medicine; Visit Provider Internal Medicine Cardiovascular Disease
DX: I50.9 Heart failure, unspecified (principal); I70.90 Unspecified atherosclerosis
CPT/HCPCS: 71046

== ENCOUNTER 2020-03-30 08:55 | Outpatient (CLI) | payer MEDICARE, SELFPAY ==
--- NOTE | 2020-03-30 09:06 | NM_ITS ---
WS: [id number] NUCLEAR MEDICINE LUNG VENTILATION AND PERFUSION CLINICAL INFORMATION: SHORTNESS OF BREATH TECHNIQUE: Ventilation/perfusion lung scan with 30.5 mCi technetium 99m DTPA. 5.0 mCi technetium 99m MAA COMPARISON: None. FINDINGS: Radiograph March 29, 2020 reviewed. Normal symmetric perfusion on the anterior and posterior views. No mismatched ventilation/perfusion defects or lobar defects to indicate pulmonary embolus. Radiotra cer deposition along the trachea on the ventilation images. Moderate chronic emphysematous changes. C ardiomegaly partially obscures the left lower lobe. NM/NM pul vent and perfus* [id number] IMPRESSION: 1. Low probability for pulmonary embolus.
== END 2020-03-30 08:56 | disposition home or self-care (01) ==
LOC: RAD 09:02
PROVIDERS: PCP Family Medicine; Visit Provider Internal Medicine Cardiovascular Disease
DX: R06.02 Shortness of breath (principal)
CPT/HCPCS: 78014; A9540; A9567

== ENCOUNTER → 2020-04-06 15:26 | Outpatient (BNVA) | payer MEDICARE, SELFPAY | PROVIDERS: PCP Family Medicine; Visit Provider Family Medicine | DX: Z20.828 Contact with and (suspected) exposure to other viral communicable diseases (principal) | CPT/HCPCS: 87635 ==

== ENCOUNTER 2020-04-18 11:13 | Outpatient (RCR) | payer SELFPAY | END 2020-05-14 23:59 | disposition home or self-care (01) | LOC: CR 11:13 | PROVIDERS: PCP Family Medicine; Referring Provider Internal Medicine Cardiovascular Disease; Visit Provider Internal Medicine Cardiovascular Disease | DX: Z95.5 Presence of coronary angioplasty implant and graft (principal) ==

== ENCOUNTER 2020-05-02 09:52 | Emergency (ER) | payer MEDICARE, SELFPAY ==
[2020-05-02 09:59] VITALS: BP 131/75; PULSE 80; RESP 15; TEMP 37.2; O2SAT 98; BMI 28.1
[2020-05-02 10:05] VITALS: BP 131/75; PULSE 94; RESP 18; O2SAT 92
--- NOTE | 2020-05-02 10:05 | XR_ITS ---
WS: [id number] PORTABLE CHEST HISTORY: dyspnea/cough COMPARISON: 03/29/2020 Prior CABG. Linear areas of atelectasis noted bilaterally. These are new since the prior study. Predominantly wit hin the central lungs. No dense consolidation. Normal vasculature. No pleural effusion or pneumothora x. Cardiac size: Mildly enlarged cardiac silhouette. Mediastinum/Aorta: Mild atherosclerosis aorta. No osseous abnormality seen. XR/XR chest 1V portable [id number] IMPRESSION: New bilateral areas of subsegmental atelectasis centrally. No pneumonia.
[2020-05-02 10:37] VITALS: O2SAT 97
--- NOTE | 2020-05-02 11:11 | ED_ITS ---
HPI - General Adult General: Chief complaint: General Medical Stated complaint: WEAKNESS, SOB Time Seen by Provider: 05/02/20 09:53 History of Present Illness: HPI narrative: 71-year-old male presents emergency room with complaint of generalized weakness has had mild cough myalgia and some moderate diarrhea this morning. Generalized flulike symptoms. Denies any significant shortness of breath above his baseline. He is supposed to have a MATT in the next few days for evaluation of valvular disease with Dr. Figueredo. Onset (ago): day(s) Severity: mild Relieving factors: none Exacerbating factors: none Associated symptoms: Reports cough, decreased appetite, fevers/chills, malaise, nausea and short of breath; Deny chest pain, confusion, diaphoresis, dyspnea, headache(s), rash, palpitations, seizures, syncope, vomiting or weakness Treatments prior to arrival: none Review of Systems Const: Reports: malaise; Denies: diaphoresis ENMT: Denies: throat pain, ear or mastoid pain, nasal discharge or nasal congestion Card: Denies: chest pain, palpitations or syncope Resp: Denies: dyspnea GI: Reports: nausea; Denies: vomiting : Denies: flank pain, dysuria, urinary frequency or urinary urgency Skin/Breast: Denies: rash Neuro: Denies: headache(s) or confusion PFSH ED PFSH: Medical History Aortic insufficiency 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 ST-T changes in leads V5 V6, 1 and aVL, may suggest ischemia. The QTC was found to be 486. Chest pain, unspecified CHF (congestive heart failure) CKD (chronic kidney disease) Essential (primary) hypertension Fatigue History of myocardial infarction 2010 s/p stent Hyperlipidemia, unspecified Mitral valve regurgitation Shortness of breath Surgical History S/P CABG x 4 QUICK to LAD, SVG to circumflex and obtuse marginal, SVG to RCA in 1999, [place], [place] S/P right coronary artery (RCA) stent placement 07/27/2019 SVG to RCA chronic occlusion SVG to OM Family History Brother CAD (coronary artery disease) Hypertension Stroke Father CAD (coronary artery disease) Stroke Mother CAD (coronary artery disease) Hypertension Stroke Social History Smoking and tobacco status: never smoked Alcohol intake: never Physical Exam Const: COMMON NORMALS: no acute distress GENERAL APPEARANCE: cooperative and comfortable ORIENTATION/CONSCIOUSNESS: Yes awake, Yes oriented to person, Yes oriented to place and Yes oriented to time HENMT: COMMON NORMALS: normocephalic, atraumatic, hearing grossly normal bilaterally, external ears normal, EAC's normal, TM's normal bilaterally, Normal nasal mucous membranes and turbinates present, moist oral mucous membranes and oropharynx normal HEAD & SCALP: normocephalic and atraumatic NOSE: Normal nasal mucous membranes and turbinates present EXTERNAL EAR: Yes external ears normal EXTERNAL AUDITORY CANAL: EAC's normal TYMPANIC MEMBRANE: TM's normal bilaterally Eye: COMMON NORMALS: Equal, round and reactive pupils present, EOMs intact bilaterally, conjunctivae normal and no scleral icterus CONJUNCTIVA: Yes conjunctivae normal PUPIL: Yes Equal, round and reactive pupils present Neck/C-Spine: COMMON NORMALS: full ROM, no lymphadenopathy, supple and no JVD Lymph: LYMPHATIC: no lymphadenopathy noted and no lymphedema noted Resp: AUSCULTATION: rhonchi and wheezes Cardio: COMMON NORMALS: no JVD, regular rate, regular rhythm and No murmurs present (Cardio) RATE: regular rate RHYTHM: regular rhythm GI: COMMON NORMALS: Soft to palpation and No hepatosplenomegaly present AUSCULTATION: Yes normoactive bowel sounds PALPATION: Yes Soft to palpation, No Tenderness to palpation present (GI), No Guarding due to palpation present (GI) and Yes No hepatosplenomegaly present Extremity: COMMON NORMALS: normal to inspection, capillary refill normal, no clubbing, cyanosis or edema, no calf tenderness and no pedal edema Neuro: SENSORIUM/ORIENTATION: Yes oriented to person, Yes oriented to place and Yes oriented to time Skin: COMMON NORMALS: no rashes or lesions noted GENERAL SKIN EXAM: no rashes or lesions noted Course Vital Signs: Vital signs: Vital Signs Temperature 97.8 F 05/02/20 14:37 Pulse Rate 89 05/02/20 14:37 Respiratory Rate 18 05/02/20 14:37 Blood Pressure 136/81 05/02/20 14:37 Pulse Oximetry 92 05/02/20 14:37 MDM - General Adult MDM Narrative: Medical decision making narrative: reviewed findings with the patient his rapid is negative. His oxygen sats are good on exam his symptoms are due to his underlying cardiovascular issues. PCR sent out is pending we will go ahead and discharge him home follow-up as needed. Reviewed monoclonal antibody infusion with the patient. Should he be positive on the PCR he wishes to proceed with that treatment. We discussed risks benefits and alternatives. His symptoms began 4 to 5 days ago where he to be positive he would be a good candidate for the monoclonal antibody infusion. Lab Data: Labs: Lab Results 05/02/20 05/02/20 05/02/20 Range/Units 10:43 11:48 11:48 WBC 4.7 (4.0-10.0) 10^3/ uL RBC 4.37 (4.1-5.3) 10^6/u L Hgb 13.2 (11.7-16.6) g/dL Hct 40.2 L (42.0-52.0) % MCV 92.0 (80-94) fL MCH 30.2 (28.0-34.0) pg MCHC 32.8 (30.0-36.0) g/dL RDW 13.2 (12.1-15.1) % Plt Count 124 L (130-400) 10^3/c mm MPV 10.3 (7.4-10.4) fL Neut % (Auto) 72.1 % Lymph % (Auto) 18.5 % [place] % (Auto) 8.8 % Eos % (Auto) 0.0 % Baso % (Auto) 0.2 % Neut # (Auto) 3.35 (1.8-7.7) 10^3/u L Lymph # (Auto) 0.9 (0.8-4.8) 10^3/u L [place] # (Auto) 0.4 (0.2-0.9) 10^3/u L Eos # (Auto) 0.0 (0.0-0.8) 10^3/u L Baso # (Auto) 0.0 (0.0-0.1) 10^3/u L Nucleated RBC % (a uto) 0 % Nucleated RBCs # 0.0 /100WBC Sodium 134 L (136-145) mmol/L Potassium 4.1 (3.5-5.1) mmol/L Chloride 99 (98-107) mmol/L Carbon Dioxide 21 L (22-29) mmol/L Anion Gap 18.1 (5-19) BUN 32 H (8-23) mg/dL Creatinine 1.8 H (0.7-1.2) mg/dL GFR Calculation Not Reportable Glucose 103 (65-115) mg/dL Calculated Osmolal ity 285 (285-295) mOsm/k g Calcium 9.3 (8.5-10.5) mg/dL Total Bilirubin 0.9 (0.15-1.2) mg/dL AST 28 (0-40) U/L ALT 26 (0-41) U/L Alkaline Phosphata se 68 (40-130) IU/L Troponin T Baselin e (0-15) ng/L Troponin T 120 Min [place] (0-15) ng/L Delta Troponin T (0-10) ABS# Total Protein 7.5 (6.6-8.7) g/dL Albumin 3.8 (3.5-5.2) g/dL Globulin 3.7 (1.3-4.6) g/dL Nasal/Oral COVID-1 9 PCR SARS-CoV-2 Ag (Rap id) Negative (Negative) 05/02/20 05/02/20 05/02/20 Range/Units 11:48 12:57 14:20 WBC (4.0-10.0) 10^3/ uL RBC (4.1-5.3) 10^6/u L Hgb (11.7-16.6) g/dL Hct (42.0-52.0) % MCV (80-94) fL MCH (28.0-34.0) pg MCHC (30.0-36.0) g/dL RDW (12.1-15.1) % Plt Count (130-400) 10^3/c mm MPV (7.4-10.4) fL Neut % (Auto) % Lymph % (Auto) % [place] % (Auto) % Eos % (Auto) % Baso % (Auto) % Neut # (Auto) (1.8-7.7) 10^3/u L Lymph # (Auto) (0.8-4.8) 10^3/u L [place] # (Auto) (0.2-0.9) 10^3/u L Eos # (Auto) (0.0-0.8) 10^3/u L Baso # (Auto) (0.0-0.1) 10^3/u L Nucleated RBC % (a uto) % Nucleated RBCs # /100WBC Sodium (136-145) mmol/L Potassium (3.5-5.1) mmol/L Chloride (98-107) mmol/L Carbon Dioxide (22-29) mmol/L Anion Gap (5-19) BUN (8-23) mg/dL Creatinine (0.7-1.2) mg/dL GFR Calculation Glucose (65-115) mg/dL Calculated Osmolal ity (285-295) mOsm/k g Calcium (8.5-10.5) mg/dL Total Bilirubin (0.15-1.2) mg/dL AST (0-40) U/L ALT (0-41) U/L Alkaline Phosphata se (40-130) IU/L Troponin T Baselin e 22 H (0-15) ng/L Troponin T 120 Min [place] 22.71 H (0-15) ng/L Delta Troponin T 0.71 (0-10) ABS# Total Protein (6.6-8.7) g/dL Albumin (3.5-5.2) g/dL Globulin (1.3-4.6) g/dL Nasal/Oral COVID-1 9 PCR Detected H SARS-CoV-2 Ag (Rap id) (Negative) Lab Data: Labs: Lab Results 05/02/20 05/02/20 05/02/20 Range/Units 10:43 11:48 11:48 WBC 4.7 (4.0-10.0) 10^3/ uL RBC 4.37 (4.1-5.3) 10^6/u L Hgb 13.2 (11.7-16.6) g/dL Hct 40.2 L (42.0-52.0) % MCV 92.0 (80-94) fL MCH 30.2 (28.0-34.0) pg MCHC 32.8 (30.0-36.0) g/dL RDW 13.2 (12.1-15.1) % Plt Count 124 L (130-400) 10^3/c mm MPV 10.3 (7.4-10.4) fL Neut % (Auto) 72.1 % Lymph % (Auto) 18.5 % [place] % (Auto) 8.8 % Eos % (Auto) 0.0 % Baso % (Auto) 0.2 % Neut # (Auto) 3.35 (1.8-7.7) 10^3/u L Lymph # (Auto) 0.9 (0.8-4.8) 10^3/u L [place] # (Auto) 0.4 (0.2-0.9) 10^3/u L Eos # (Auto) 0.0 (0.0-0.8) 10^3/u L Baso # (Auto) 0.0 (0.0-0.1) 10^3/u L Nucleated RBC % (a uto) 0 % Nucleated RBCs # 0.0 /100WBC Sodium 134 L (136-145) mmol/L Potassium 4.1 (3.5-5.1) mmol/L Chloride 99 (98-107) mmol/L Carbon Dioxide 21 L (22-29) mmol/L Anion Gap 18.1 (5-19) BUN 32 H (8-23) mg/dL Creatinine 1.8 H (0.7-1.2) mg/dL GFR Calculation Not Reportable Glucose 103 (65-115) mg/dL Calculated Osmolal ity 285 (285-295) mOsm/k g Calcium 9.3 (8.5-10.5) mg/dL Total Bilirubin 0.9 (0.15-1.2) mg/dL AST 28 (0-40) U/L ALT 26 (0-41) U/L Alkaline Phosphata se 68 (40-130) IU/L Troponin T Baselin e (0-15) ng/L Troponin T 120 Min [place] (0-15) ng/L Delta Troponin T (0-10) ABS# Total Protein 7.5 (6.6-8.7) g/dL Albumin 3.8 (3.5-5.2) g/dL Globulin 3.7 (1.3-4.6) g/dL Nasal/Oral COVID-1 9 PCR SARS-CoV-2 Ag (Rap id) Negative (Negative) 05/02/20 05/02/20 05/02/20 Range/Units 11:48 12:57 14:20 WBC (4.0-10.0) 10^3/ uL RBC (4.1-5.3) 10^6/u L Hgb (11.7-16.6) g/dL Hct (42.0-52.0) % MCV (80-94) fL MCH (28.0-34.0) pg MCHC (30.0-36.0) g/dL RDW (12.1-15.1) % Plt Count (130-400) 10^3/c mm MPV (7.4-10.4) fL Neut % (Auto) % Lymph % (Auto) % [place] % (Auto) % Eos % (Auto) % Baso % (Auto) % Neut # (Auto) (1.8-7.7) 10^3/u L Lymph # (Auto) (0.8-4.8) 10^3/u L [place] # (Auto) (0.2-0.9) 10^3/u L Eos # (Auto) (0.0-0.8) 10^3/u L Baso # (Auto) (0.0-0.1) 10^3/u L Nucleated RBC % (a uto) % Nucleated RBCs # /100WBC Sodium (136-145) mmol/L Potassium (3.5-5.1) mmol/L Chloride (98-107) mmol/L Carbon Dioxide (22-29) mmol/L Anion Gap (5-19) BUN (8-23) mg/dL Creatinine (0.7-1.2) mg/dL GFR Calculation Glucose (65-115) mg/dL Calculated Osmolal ity (285-295) mOsm/k g Calcium (8.5-10.5) mg/dL Total Bilirubin (0.15-1.2) mg/dL AST (0-40) U/L ALT (0-41) U/L Alkaline Phosphata se (40-130) IU/L Troponin T Baselin e 22 H (0-15) ng/L Troponin T 120 Min [place] 22.71 H (0-15) ng/L Delta Troponin T 0.71 (0-10) ABS# Total Protein (6.6-8.7) g/dL Albumin (3.5-5.2) g/dL Globulin (1.3-4.6) g/dL Nasal/Oral COVID-1 9 PCR Detected H SARS-CoV-2 Ag (Rap id) (Negative) COVID Results: SARS-CoV-2 Antigen (Rapid) Negative (Negative) 05/02/20 10:43 05/02/20 SARS-CoV-2 RNA (RT-PCR) Not detected (NOT DETECTED) 01/17/20 09:50 01/17/20 Nasal/Oral Coronavirus 2019 PCR Detected H 05/02/20 14:20 05/02/20 Discharge Plan Discharge Patient Disposition: Home Clinical Impression: Aortic insufficiency, Mitral valve regurgitation, CHF (congestive heart failure), Atrial fibrillation Condition: Stable Prescriptions: No Action losartan 100 mg tablet 150 mg PO DIRECTED Qty: 135 RF: 3 amiodarone 200 mg tablet 100 mg PO DAILY RF: 0 potassium chloride 20 mEq tablet extended release 40 meq PO BID Qty: 60 RF: 3 furosemide 40 mg tablet 40 mg PO BID Qty: 60 RF: 1 nitroglycerin 0.4 mg tablet, sublingual 0.4 mg SUBLINGUAL Q5M PRN (Reason: Chest pain) RF: 0 multivitamin Capsule 1 cap PO BID RF: 0 ascorbate calcium (vitamin C) 500 mg tablet 1,000 mg PO BID RF: 0 magnesium oxide 400 mg magnesium tablet 400 mg PO BID RF: 0 Eliquis 5 mg tablet 5 mg PO BID 90 Days Qty: 180 RF: 3 vitamin B complex [B Complex-Vitamin B12] Tablet 1 tab PO DAILY RF: 0 omega 3-cve-isy-fish oil [Fish Oil] 300-1,000 mg capsule 1 cap PO DAILY RF: 0 cholecalciferol (vitamin D3) 75 mcg (3,000 unit) tablet 50 mcg PO DAILY RF: 0 atorvastatin 10 mg tablet 10 mg PO DAILY Qty: 90 RF: 3 isosorbide mononitrate 30 mg tablet extended release 24 hr 30 mg PO BID Qty: 180 RF: 3 metoprolol succinate 25 mg tablet extended release 24 hr 12.5 mg PO .evening Qty: 30 RF: 5 clopidogrel 75 mg Tablet 75 mg PO DAILY Qty: 90 RF: 3 Discharge Orders: Discharge ED (Routine); Ordered 05/04/20 Ordered By: Nba Castellon Referrals: Cristopher Carter MD [Primary Care Provider] - Patient Instructions: Opioid Safety Coding Level of Care Code ED Dental Chair Assembler for Chg Fwd Exam Comprehensive Monoclonal Antibody Treatments Inclusion/Exclusion Criteria weight >/= 40 kg age >/= 65 not requiring hospitalization, not requiring oxygen (if not chronically on oxygen) and no increase oxygen requirement (if chronically on oxygen) Patient education patient/family/caregiver received/reviewed fact sheet, Emergency Use Authorization/unapproved drug status discussed with patient/family/caregiver, alternatives to this treatment discussed with patient/family/caregiver, risks and benefits of medication reviewed with patient/family/caregiver, patient/family/caregiver given opportunity for questions, which were answered and patient consents to receiving Monoclonal Antibody Treatment Plan for treatment Meets criteria for Monoclonal Antibody infusion If test comes back positive, re-evaluate for Monoclonal Antibody infusion
[2020-05-02 11:22] LABS: SARS Covid-2 Antigen Negative (Negative)
[2020-05-02] MEDS: ondansetron 2 mg/ML SDV 2 mL 4 MG IVP (11:29)
--- NOTE | 2020-05-02 11:32 | PC.NURSE ---
Unable to drawn blood when starting an IV. Asked Lab to come drawn blood
[2020-05-02 12:06] LABS: Basophils % 0.2 %; Hematocrit 40.2 % (42.0-52.0); Hemoglobin 13.2 g/dL (11.7-16.6); Lymphocytes # 0.9 10^3/uL (0.8-4.8); Lymphocytes % 18.5 %; Mean Corpuscular HGB Conc 32.8 g/dL (30.0-36.0); Mean Corpuscular Hemoglobin 30.2 pg (28.0-34.0); Mean Platelet Volume 10.3 fL (7.4-10.4); Monocytes # 0.4 10^3/uL (0.2-0.9); Monocytes % 8.8 %; Neutrophils # 3.35 10^3/uL (1.8-7.7); Neutrophils % 72.1 %; Nucleated Red Blood Cells % 0 %; Platelet Count 124 10^3/cmm (130-400); Red Blood Count 4.37 10^6/uL (4.1-5.3); Red Cell Distribution Width 13.2 % (12.1-15.1); White Blood Count 4.7 10^3/uL (4.0-10.0)
[2020-05-02 12:17] LABS: Alanine Aminotransferase 26 U/L (0-41); Albumin Level 3.8 g/dL (3.5-5.2); Alkaline Phosphatase 68 IU/L (40-130); Anion Gap 18.1 (5-19); Aspartate Amino Transferase 28 U/L (0-40); Blood Urea Nitrogen 32 mg/dL (8-23); Calcium 9.3 mg/dL (8.5-10.5); Carbon Dioxide 21 mmol/L (22-29); Chloride 99 mmol/L (98-107); Globulin 3.7 g/dL (1.3-4.6); Glucose 103 mg/dL (65-115); Osmolality Calculated 285 mOsm/kg (285-295); Potassium 4.1 mmol/L (3.5-5.1); Sodium 134 mmol/L (136-145); Total Bilirubin 0.9 mg/dL (0.15-1.2); Total Protein 7.5 g/dL (6.6-8.7)
[2020-05-02 12:18] LABS: Troponin(5th) Baseline 22 ng/L (0-15)
[2020-05-02 13:40] LABS: Troponin 5 2HR 22.71 ng/L (0-15); Troponin 5 2HR Delta 0.71 ABS# (0-10)
[2020-05-02 14:16] VITALS: BP 136/81; PULSE 89; RESP 18; TEMP 36.8; O2SAT 92
[2020-05-02 14:37] VITALS: BP 136/81; PULSE 89; RESP 18; TEMP 36.6; O2SAT 92
--- NOTE | 2020-05-02 16:34 | ECG_ITS ---
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 Measurements Intervals [place] Rate: 82 P: 31 NE: 184 QRS: -14 QRSD: 101 T: 76 QT: 358 QTc: 420 Interpretive Statements SINUS RHYTHM INFERIOR MYOCARDIAL INFARCTION , PROBABLY OLD [40+ ms Q WAVE AND/OR ST/T ABNORMALITY IN II/aVF] Compared to ECG 03/24/2020 09:57:53 Left ventricular hypertrophy no longer present ST (T wave) deviation no longer present Myocardial infarct finding still present Electronically Signed On 05-02-2020 17:52:05 FOOD AND NUTRITION SERVICES SUPERVISOR by Anu Casillas M.D. [id number]
[2020-05-03 14:19] LABS: Coronavirus Test Green County Detected
--- NOTE | 2020-05-04 11:14 | DCPLANNER ---
grain merchandising manager had message to schedule an out patient BAM infusion. grain merchandising manager faxed patients information, an out patient order for BAM infusion, patients chart and positive covid test to centralized scheduling. grain merchandising manager called to confirm that centralized scheduling had received the order for the infusion, and asked if patient could be scheduled for today, 05.04.20. grain merchandising manager spoke with Citlali, was told that before the infusion could be scheduled that a prior authorization had to be obtained from the ordering physician for the infusion. grain merchandising manager called patients insurance, [employer] Medicare Advantage, to get the prior authorization. grain merchandising manager gathered all required information, spoke with Robinson Villa who reported that the infusion for patient did not need a prior authorization. grain merchandising manager called centralized scheduling, spoke with Citlali, told centralized scheduling that the infusion for patient did not need a prior authorization. grain merchandising manager was told that centralized scheduling would call patient and schedule the BAM infusion.
== END 2020-05-02 15:06 | disposition home or self-care (01) ==
PROVIDERS: Emergency Provider Family Medicine; PCP Family Medicine
DX: I35.1 Nonrheumatic aortic (valve) insufficiency (principal); I34.0 Nonrheumatic mitral (valve) insufficiency; U07.1 COVID-19; I11.0 Hypertensive heart disease with heart failure; I50.9 Heart failure, unspecified; I48.91 Unspecified atrial fibrillation; Z79.01 Long term (current) use of anticoagulants; Z79.02 Long term (current) use of antithrombotics/antiplatelets; I25.10 Atherosclerotic heart disease of native coronary artery without angina pectoris; I25.2 Old myocardial infarction; E78.5 Hyperlipidemia, unspecified
CPT/HCPCS: 36415; 71045; 80053; 84484; 85025; 87426; 87635; 93005; 96374; 99283; J2405

== ENCOUNTER 2020-05-04 10:40 | Outpatient (CLI) | payer MEDICARE, SELFPAY ==
--- NOTE | 2020-05-04 11:16 | A.OFFVIS_ITS ---
Patient Information [facility] COVID test results: SARS-CoV-2 Antigen (Rapid) Negative (Negative) 05/02/20 10:43 05/02/20 SARS-CoV-2 RNA (RT-PCR) Not detected (NOT DETECTED) 01/17/20 09:50 01/17/20 Nasal/Oral Coronavirus 2019 PCR Detected H 05/02/20 14:20 05/02/20 Criteria/Plan Inclusion/Exclusion Criteria weight >/= 40kg, + direct test </= 10 days ago and symptom onset </= 10 days ago age >/= 65 not requiring oxygen (if not chronically on oxygen) Patient education patient/caregiver received/reviewed fact sheet, Emergency Use Authorization/unapproved drug status discussed with patient/caregiver, alternatives to this treatment discussed with patient/caregiver, risks and benefits of medication reviewed with patient/caregiver, patient/caregiver given opportunity for questions, which were answered and patient/caregiver consents to receiving Monoclonal Antibody Treatment Plan for treatment Meets criteria for Monoclonal Antibody infusion
[2020-05-04 11:47] VITALS: BP 124/74; PULSE 66; RESP 21; TEMP 37; O2SAT 97; BMI 29.7
[2020-05-04 13:00] VITALS: BP 130/68; PULSE 68; RESP 21; TEMP 37.2; O2SAT 94
[2020-05-04 13:15] VITALS: BP 126/64; PULSE 70; RESP 20; TEMP 37.1; O2SAT 95
[2020-05-04 14:05] VITALS: BP 119/68; PULSE 68; RESP 19; TEMP 37.2; O2SAT 95
== END 2020-05-04 14:10 | disposition home or self-care (01) ==
LOC: OPS 10:43
PROVIDERS: PCP Family Medicine; Referring Provider Nurse Practitioner Family; Visit Provider Family Medicine
DX: U07.1 COVID-19 (principal)
CPT/HCPCS: 96365

== ENCOUNTER 2020-05-18 11:17 | Outpatient (RCR) | payer SELFPAY | END 2020-06-14 23:59 | disposition home or self-care (01) | LOC: CR 11:17 | PROVIDERS: PCP Family Medicine; Referring Provider Internal Medicine Cardiovascular Disease; Visit Provider Internal Medicine Cardiovascular Disease | DX: Z95.5 Presence of coronary angioplasty implant and graft (principal) ==

== ENCOUNTER → 2020-05-22 11:11 | Outpatient (BNVA) | payer MEDICARE, SELFPAY | PROVIDERS: PCP Family Medicine; Visit Provider Internal Medicine Cardiovascular Disease | DX: U07.1 COVID-19 (principal) | CPT/HCPCS: 87635 ==

== ENCOUNTER 2020-05-26 09:24 | Day surgery (SDC) | payer MEDICARE, SELFPAY ==
--- NOTE | 2020-05-26 09:54 | ANES.PREANE2 ---
Pre-Anesthetic Assessment Pre-Anesthetic Assessment: Height/Weight: Height 1.7 m Weight 86.183 kg Preop Diagnosis: Abnormal stress test, worsening of angina despite of optimization of medicine Proposed Procedure: Operation Date: 05/26/20 10:30 Proposed Procedures p MATT(Not Applicable) - Vanessa Schofield MD Was Beta Luis taken within 24 hours: Yes Social: Social History: No alcohol and No tobacco Exam: Pre-Anes Outpt Exam: alert, oriented x 3, clear to auscultation bilaterally and regular rate & rhythm Additional Exam Findings (including area of procedure): Murmur Airway: Submandibular: WNL Cervical ROM: WNL MP: 2 Dentition: Full Pulmonary: Pulmonary: NO, Sleep apnea and SOB CV/HEM: CV/HEM: Arrythmia, CAD (CABG), CHF, WA and Murmur Comments: MR and JEANA : : Chronic renal Insufficiency Anesthetic Plan: ASA status: 3 Anesthesia: MAC Risk of > 500 ml blood loss (7ml/kg in children): No PFSH Anesthesia PFSH: Medical History Aortic insufficiency 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 ST-T changes in leads V5 V6, 1 and aVL, may suggest ischemia. The QTC was found to be 486. Chest pain, unspecified CHF (congestive heart failure) CKD (chronic kidney disease) Essential (primary) hypertension Fatigue History of myocardial infarction 2010 s/p stent Hyperlipidemia, unspecified Mitral valve regurgitation Shortness of breath Surgical History S/P CABG x 4 QUICK to LAD, SVG to circumflex and obtuse marginal, SVG to RCA in 1999, [place], [place] S/P right coronary artery (RCA) stent placement 07/27/2019 SVG to RCA chronic occlusion SVG to OM Family History Brother CAD (coronary artery disease) Hypertension Stroke Father CAD (coronary artery disease) Stroke Mother CAD (coronary artery disease) Hypertension Stroke Social History Smoking and tobacco status: never smoked Alcohol intake: never Data Anesthesia Cardiac Studies: Holter Monitor 12/29/19
--- NOTE | 2020-05-26 10:03 | USCV_ITS ---
Jeremiah Blackwell Age: 79 Gender: M : 1940 Exam Date: 05/26/2020 10:41 Ordering Phys: Vanessa Schofield MD ([email or web address]) Technologist: Rc Acevedo Exam Location: [facility] [place] Indication: SOB BP: / HR: Rhythm: Sinus Technical Quality: Good MEASUREMENTS (Male / Female) Normal Values Medications Patient given IV sedation by anesthesia service, for details please refer to the anesthesia report. Complications None. Proc. Components FINDINGS Left Ventricle Normal left ventricular cavity size. Normal left ventricular systolic function. Left ventricular ejection fraction is estimated at 55 %. Right Ventricle The right ventricle is normal in size and function. Right Atrium The right atrium is normal in size. Left Atrium Mildly increased left atrial size. LA Appendage No thrombus visualized in the left atrial appendage. IA Septum The interatrial septum is normal. Mitral Valve Mildly thickened mitral valve. No mitral valve stenosis. Mild- moderate mitral valve regurgitation. Aortic Valve Moderate aortic valve calcification. No aortic valve stenosis. Moderate aortic valve regurgitation. Tricuspid Valve Structurally normal tricuspid valve without significant stenosis or regurgitation. Pulmonary artery systolic pressure is normal. Pulmonic Valve Structurally normal pulmonic valve without significant stenosis. There is no pulmonic regurgitation. Pericardium Normal pericardium without effusion. Aorta Plaque seen in the ascending aorta. CONCLUSIONS 1-Normal left ventricular cavity size. Normal left ventricular systolic function. Left ventricular ejection fraction is estimated at 55 %. 2-Mildly thickened mitral valve. No mitral valve stenosis. Mild- moderate mitral valve regurgitation. 3-Moderate aortic valve calcification. No aortic valve stenosis. Moderate aortic valve regurgitation. 4-Structurally normal tricuspid valve without significant stenosis or regurgitation. Pulmonary artery systolic pressure is normal. 5-There is no pericardial effusion. 6-Plaque seen in the ascending aorta. 7-There are no prior Transesophageal echocardiogram studies to compare. Vanessa Schofield MD (Electronically Signed) Final Date: 30 May 2020 21:11 S
[2020-05-26 10:06] VITALS: BP 157/86; PULSE 57; RESP 18; TEMP 36.1; O2SAT 96
[2020-05-26] MEDS: sodium chloride 0.9% 1,000 ML 30 ML IV (10:27)
--- NOTE | 2020-05-26 10:45 | W.PM.OPSUD ---
Surgery/Procedure H&P Update DATE OF PROCEDURE: May 26, 2020 DATE H&P PERFORMED: 04/11/20 H&P UPDATE INFORMATION: I have examined patient prior to procedure and No changes to prior documentation PREOP DIAGNOSIS: Worsening of shortness of breath with valvular regurgitation PLANNED PROCEDURE: Operation Date: 05/26/20 10:30 Proposed Procedures p MATT(Not Applicable) - Vanessa Schofield MD
--- NOTE | 2020-05-26 10:46 | P.HP_ITS ---
Same Day Surgery H&P Indication for Procedure/HPI DATE OF PROCEDURE: May 26, 2020 CHIEF COMPLAINT/INDICATIONFOR SURGICAL PROCEDURE: Worsening of shortness of breath, valvular regurgitation PREOP DIAGNOSIS: Worsening of shortness of breath with valvular regurgitation PLANNED PROCEDRUE: Operation Date: 05/26/20 10:30 Proposed Procedures p MATT(Not Applicable) - Vanessa Schofield MD 79-year-old male past medical history significant for coronary artery disease, anemia, hypertension, valvular problem for worsening of unexplained shortness of breath and valvular regurgitation is here for transesophageal echocardiogram for better valvular assessment. I have explained all risk benefit and alternative for the procedure. He would like to proceed with it. Medications/Allergies* Home Medications Medication Instructions Recorded Confirmed Type nitroglycerin 0.4 mg sublingual 0.4 mg SUBLINGUAL Q5M PRN 03/26/19 05/25/20 History tablet ascorbate calcium (vitamin C) 500 1,000 mg PO BID 04/29/19 05/25/20 History mg tablet magnesium oxide 400 mg PO BID 11/04/19 05/25/20 History omega 8-oah-fon-fish oil 300 1 cap PO DAILY 01/27/20 05/25/20 History mg-1,000 mg capsule vitamin B complex 1 tab PO DAILY 01/27/20 05/25/20 History amiodarone 200 mg tablet 100 mg PO DAILY tab 03/20/20 05/25/20 History cholecalciferol (vitamin D3) 75 50 mcg PO DAILY tab 04/03/20 05/25/20 History mcg (3,000 unit) tablet multivitamin 1 cap PO BID cap 04/03/20 05/25/20 History zinc 50 mg PO DAILY 05/25/20 05/25/20 History Allergies/Adverse Reactions Allergy/AdvReac Type Severity Reaction Status Date / Time morphine Allergy RAPID Verified 04/03/20 09:40 PULSE, NUMBNESS ranolazine [From Ranexa] AdvReac Severe hypotension, Verified 04/03/20 09:40 weakness, shortness of breath Current Medications: Generic Name Dose Route Start Last Admin Trade Name Freq PRN Reason Stop Dose Admin Sodium Chloride 1,000 mls @ 30 mls/hr 05/26/20 10:15 05/26/20 10:27 Sodium Chloride 0.9% IV 05/27/20 10:14 30 mls/hr .Q24H AMADO Administration Pertinent History/Comorbid Conditions* Medical History (Updated 05/02/20 @ 14:06 by Nba Castellon DO) Aortic insufficiency Arteriosclerotic cardiovascular disease Atherosclerotic heart disease of [place] coronary artery with other forms of angina pectoris Atrial fibrillation AF- post ND and stent 07/27/2019, anticoag with Kimo The EKG today revealed sinus rhythm with features of old septal ND. ST-T changes in leads V5 V6, 1 and aVL, may suggest ischemia. The QTC was found to be 486. Chest pain, unspecified CHF (congestive heart failure) CKD (chronic kidney disease) Essential (primary) hypertension Fatigue History of myocardial infarction 2010 s/p stent Hyperlipidemia, unspecified Mitral valve regurgitation Shortness of breath Surgical History (Updated 10/04/19 @ 14:20 by ARTHUR Parmar) S/P CABG x 4 QUICK to LAD, SVG to circumflex and obtuse marginal, SVG to RCA in 1999, [place], [place] S/P right coronary artery (RCA) stent placement 07/27/2019 SVG to RCA chronic occlusion SVG to OM Family History (Updated 03/26/19 @ 11:27 by Jacquie Quintanilla RN) CAD (coronary artery disease) Brother Father Mother Hypertension Brother Mother Stroke Brother Father Mother Social History Smoking and tobacco status: never smoked Alcohol intake: never Pertinent Exam Findings alert, clear to auscultation bilaterally and regular rate & rhythm GENERAL: Patient is alert, awake and oriented x3. NECK: No jugular vein distension. HEENT: No cyanosis. No icterus. No pallor. HEART: Regular S1 and S2. 1/6 sys murmur, rub or gallop. LUNGS: Clear to auscultate bilaterally. ABDOMEN: Soft, nontender and nondistended. Positive bowel sounds. No guarding, rebound or tenderness. CENTRAL NERVOUS SYSTEM: Grossly nonfocal. EXTREMITIES: Lower extremities without edema bilaterally. Related Problem List Diagnoses (1) Shortness of breath: (2) Mitral valve regurgitation: (3) Aortic insufficiency: (4) CKD (chronic kidney disease): Qualifiers: Chronic kidney disease stage: unspecified stage Qualified Code(s): N18.9 - Chronic kidney disease, unspecified (5) Fatigue: Qualifiers: Fatigue type: unspecified Qualified Code(s): R53.83 - Other fatigue Recommendations Surgery/Procedure today Other Plans: We will proceed with transesophageal echocardiogram to assess valvular function and LV function. Coding Level of Care Code Acute Breed To Wean Production Technician for Chg Fwd Diagnoses Shortness of breath R06.02 Mitral valve regurgitation I34.0 Aortic insufficiency I35.1 CKD (chronic kidney disease) N18.9 Chronic kidney disease stage: unspecified stage Fatigue R53.83 Fatigue type: unspecified
[2020-05-26 11:10] VITALS: BP 103/65; PULSE 59; RESP 18; TEMP 36.6; O2SAT 96
[2020-05-26 11:27] VITALS: BP 133/76; PULSE 54; RESP 18; O2SAT 94
[2020-05-26 11:37] VITALS: BP 130/70; PULSE 58; RESP 18; O2SAT 94
--- NOTE | 2020-05-26 13:33 | ANE.PACU2 ---
Inpatient post-anesthesia follow up: Airway intact: Yes Vital signs: Temperature 97.8 F Pulse Rate 58 Respiratory Rate 18 Blood Pressure 130/70 Pulse Oximetry 94 Oxygen Delivery Me thod Room Air Oxygen Flow Rate Fraction of Inspir ed Oxygen Hydration adequate: Yes Nausea and vomiting: No Pain level: 1 Mental status: Baseline
== END 2020-05-26 11:43 | disposition home or self-care (01) ==
PROVIDERS: PCP Family Medicine; Visit Provider Internal Medicine Cardiovascular Disease
PROC: (CPT 93312; principal; 2020-05-26 10:30)
DX: I34.0 Nonrheumatic mitral (valve) insufficiency (principal); I35.1 Nonrheumatic aortic (valve) insufficiency; R53.83 Other fatigue; I48.91 Unspecified atrial fibrillation; R06.02 Shortness of breath; I13.0 Hypertensive heart and chronic kidney disease with heart failure and stage 1 through stage 4 chronic kidney disease, or unspecified chronic kidney disease; N18.9 Chronic kidney disease, unspecified; I50.9 Heart failure, unspecified; E78.5 Hyperlipidemia, unspecified; Z79.01 Long term (current) use of anticoagulants; Z95.1 Presence of aortocoronary bypass graft; I25.2 Old myocardial infarction; Z82.49 Family history of ischemic heart disease and other diseases of the circulatory system; Z82.3 Family history of stroke
CPT/HCPCS: 93312; 93320; 93325; 96360; J7030

== ENCOUNTER 2020-05-31 12:37 | Outpatient (CLI) | payer MEDICARE, SELFPAY ==
--- NOTE | 2020-05-31 12:49 | XR_ITS ---
WS: [id number] XR chest 2V* [id number] REASON FOR EXAM: Shortness of breath FINDINGS: The linear densities seen in the mid lung do on the previous examination of 05/02/2020 have resolv ed. At this time no active pulmonary parenchymal or pleural abnormality is identified. The remainder of the examination is unchanged compared to 05/02/2020. Prominent calcified granulomatous disease in both hemithoraces with large calcified azygos node. XR/XR chest 2V* 72053 IMPRESSION: Resolution of linear densities in the midlung do. Chest is otherwise unchan ged compared to 05/02/2020.
[2020-05-31 14:12] LABS: Magnesium 2.2 mg/dL (1.7-2.3)
== END 2020-05-31 12:38 | disposition home or self-care (01) ==
PROVIDERS: PCP Family Medicine; Visit Provider Internal Medicine Critical Care Medicine
DX: I50.9 Heart failure, unspecified (principal); U07.1 COVID-19
CPT/HCPCS: 36415; 71046; 83735

== ENCOUNTER 2020-06-15 09:42 | Outpatient (RCR) | payer SELFPAY | END 2020-07-14 23:59 | disposition home or self-care (01) | LOC: CR 09:42 | PROVIDERS: PCP Family Medicine; Referring Provider Internal Medicine Cardiovascular Disease; Visit Provider Internal Medicine Cardiovascular Disease | DX: Z95.5 Presence of coronary angioplasty implant and graft (principal) ==

== ENCOUNTER 2020-07-26 06:00 | Outpatient (RCR) | payer MEDICARE, SELFPAY | END 2020-08-14 23:59 | disposition home or self-care (01) | LOC: SPT 06:00 | PROVIDERS: PCP Family Medicine; Referring Provider Family Medicine; Visit Provider Family Medicine | DX: M54.31 Sciatica, right side (principal) | CPT/HCPCS: 97110; 97161 ==

== ENCOUNTER 2020-07-26 07:38 | Outpatient (CLI) | payer MEDICARE, SELFPAY ==
[2020-07-26 08:18] LABS: Basophils # 0.1 10^3/uL (0.0-0.1); Basophils % 1.3 %; Eosinophils # 0.2 10^3/uL (0.0-0.8); Eosinophils % 4.3 %; Hemoglobin 13.8 g/dL (11.7-16.6); Lymphocytes # 1.1 10^3/uL (0.8-4.8); Lymphocytes % 22.7 %; Mean Corpuscular HGB Conc 32.1 g/dL (30.0-36.0); Mean Corpuscular Hemoglobin 30.3 pg (28.0-34.0); Mean Corpuscular Volume 94.5 fL (80-94); Mean Platelet Volume 10.2 fL (7.4-10.4); Monocytes # 0.5 10^3/uL (0.2-0.9); Monocytes % 10.3 %; Neutrophils # 2.83 10^3/uL (1.8-7.7); Neutrophils % 60.8 %; Nucleated Red Blood Cells % 0 %; Platelet Count 147 10^3/cmm (130-400); Red Blood Count 4.55 10^6/uL (4.1-5.3); Red Cell Distribution Width 13.5 % (12.1-15.1); White Blood Count 4.7 10^3/uL (4.0-10.0)
[2020-07-26 08:46] LABS: Alanine Aminotransferase 23 U/L (0-41); Albumin Level 4.2 g/dL (3.5-5.2); Alkaline Phosphatase 50 IU/L (40-130); Anion Gap 14.9 (5-19); Aspartate Amino Transferase 16 U/L (0-40); Blood Urea Nitrogen 22 mg/dL (8-23); Calcium 8.6 mg/dL (8.5-10.5); Carbon Dioxide 25 mmol/L (22-29); Chloride 103 mmol/L (98-107); Chol HDL Ratio 2.86 mg/dL (1.0-5.00); Cholesterol 146 mg/dL (0-200); Globulin 2.5 g/dL (1.3-4.6); Glucose 104 mg/dL (65-115); HDL Cholesterol 51 mg/dL (60-100); LDL Cholesterol Calculated 61 mg/dL (50-129); Osmolality Calculated 292 mOsm/kg (285-295); Potassium 3.9 mmol/L (3.5-5.1); Sodium 139 mmol/L (136-145); Total Bilirubin 0.7 mg/dL (0.15-1.2); Total Protein 6.7 g/dL (6.6-8.7); Triglycerides 169 mg/dL (0-150)
== END 2020-07-26 07:39 | disposition home or self-care (01) ==
PROVIDERS: PCP Family Medicine; Visit Provider Family Medicine
DX: I48.0 Paroxysmal atrial fibrillation (principal); Z00.00 Encounter for general adult medical examination without abnormal findings; I25.10 Atherosclerotic heart disease of native coronary artery without angina pectoris; I10 Essential (primary) hypertension; R35.1 Nocturia
CPT/HCPCS: 36415; 80053; 80061; 84153; 85025

== ENCOUNTER 2020-08-15 06:00 | Outpatient (RCR) | payer MEDICARE, SELFPAY | END 2020-09-13 23:59 | disposition home or self-care (01) | LOC: SPT 06:00 | PROVIDERS: PCP Family Medicine; Referring Provider Family Medicine; Visit Provider Family Medicine | DX: M54.31 Sciatica, right side (principal) | CPT/HCPCS: 97110 ==

== ENCOUNTER 2020-08-24 08:26 | Outpatient (CLI) | payer MEDICARE, SELFPAY ==
[2020-08-24 09:39] LABS: 25 Hydroxy Vitamin D 46 ng/mL (30-100); C Reactive Protein 6.7 mg/L (0.0-4.9); NT Pro B Type Natriuretic Pept 1417 pg/mL (0-450); Vitamin B12 1089 pg/mL (232-1245)
[2020-08-24 10:23] LABS: Erythrocyte Sedimentation Rate 31 mm/hr (0-10)
[2020-08-25 12:16] LABS: EBV IGM TEST <36.00 U/mL; Lyme AB Screen <0.90 index
[2020-08-25 13:27] LABS: Cytomegalovirus Antibody (IGG) >10.00 U/mL; Cytomegalovirus Antibody (IGM) <30.00 AU/mL
[2020-08-29 17:03] LABS: RMSF IGG NOT DETECTED; RMSF IGM NOT DETECTED
[2020-08-30 17:33] LABS: E. Chaffeensis AB IGG <1:64; E. Chaffeensis AB IGM <1:20
== END 2020-08-24 08:27 | disposition home or self-care (01) ==
LOC: LAB 08:35
PROVIDERS: PCP Family Medicine; Visit Provider Family Medicine
DX: I48.91 Unspecified atrial fibrillation (principal); R53.1 Weakness; R53.83 Other fatigue
CPT/HCPCS: 36415; 82306; 82607; 83880; 85651; 86140; 86618; 86664; 86665; 86666; 86757

== ENCOUNTER 2021-02-02 08:08 | Outpatient (CLI) | payer MEDICARE, SELFPAY ==
[2021-02-02 08:43] LABS: Basophils % 0.7 %; Eosinophils # 0.2 10^3/uL (0.0-0.8); Hematocrit 43.9 % (42.0-52.0); Hemoglobin 14.6 g/dL (11.7-16.6); Lymphocytes # 1.1 10^3/uL (0.8-4.8); Lymphocytes % 26.6 %; Mean Corpuscular HGB Conc 33.3 g/dL (30.0-36.0); Mean Corpuscular Hemoglobin 29.5 pg (28.0-34.0); Mean Corpuscular Volume 88.7 fl (80-94); Mean Platelet Volume 10.4 fL (7.4-10.4); Monocytes # 0.3 10^3/uL (0.2-0.9); Monocytes % 7.9 %; Neutrophils % 60.6 %; Nucleated Red Blood Cells % 0 %; Platelet Count 152 10^3/cmm (130-400); Red Blood Count 4.95 10^6/uL (4.1-5.3); Red Cell Distribution Width 13.1 % (12.1-15.1); White Blood Count 4.3 10^3/uL (4.0-10.0)
[2021-02-02 09:14] LABS: Alanine Aminotransferase 20 U/L (0-41); Albumin Level 4.2 g/dL (3.5-5.2); Alkaline Phosphatase 61 IU/L (40-130); Aspartate Amino Transferase 15 U/L (0-40); Blood Urea Nitrogen 20 mg/dL (8-23); Calcium 9.3 mg/dL (8.5-10.5); Carbon Dioxide 23 mmol/L (22-29); Chloride 106 mmol/L (98-107); Chol HDL Ratio 2.44 mg/dL (1.0-5.00); Cholesterol 154 mg/dL (0-200); Globulin 2.6 g/dL (1.3-4.6); Glucose 101 mg/dL (65-115); HDL Cholesterol 63 mg/dL (60-100); LDL Cholesterol Calculated 71 mg/dL (50-129); LDL HDL Ratio 1.13 RATIO (0.00-3.22); Osmolality Calculated 295 mOsm/kg (285-295); Sodium 141 mmol/L (136-145); Thyroid Stimulating Hormone 0.41 uIU/mL (0.27-4.20); Total Bilirubin 0.9 mg/dL (0.15-1.2); Total Protein 6.8 g/dL (6.6-8.7); Triglycerides 102 mg/dL (0-150)
== END 2021-02-02 08:09 | disposition home or self-care (01) ==
PROVIDERS: PCP Family Medicine; Visit Provider Family Medicine
DX: I48.0 Paroxysmal atrial fibrillation (principal); I25.10 Atherosclerotic heart disease of native coronary artery without angina pectoris; I10 Essential (primary) hypertension
CPT/HCPCS: 36415; 80053; 80061; 84443; 85025

== ENCOUNTER 2021-05-15 09:56 | Outpatient (RCR) | payer MEDICARE, SELFPAY | END 2021-06-14 23:59 | disposition home or self-care (01) | LOC: CR 09:56 | PROVIDERS: PCP Family Medicine; Referring Provider Family Medicine; Visit Provider Family Medicine | DX: I25.10 Atherosclerotic heart disease of native coronary artery without angina pectoris (principal); I48.0 Paroxysmal atrial fibrillation | CPT/HCPCS: 93798 ==

== ENCOUNTER → 2021-05-28 14:38 | Outpatient (BNVA) | payer MEDICARE, SELFPAY | PROVIDERS: PCP Family Medicine; Visit Provider Nurse Practitioner Family | DX: I25.118 Atherosclerotic heart disease of native coronary artery with other forms of angina pectoris (principal); I50.9 Heart failure, unspecified | CPT/HCPCS: 99214 ==

== ENCOUNTER 2021-06-13 10:50 | Outpatient (CLI) | payer MEDICARE, SELFPAY ==
[2021-06-13 10:58] VITALS: BMI 28.1
--- NOTE | 2021-06-13 11:13 | ECG_ITS ---
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 Interpretive Statements NAME OF STUDY: LEXISCAN SESTAMIBI STRESS TEST INDICATION: Worsening fatigue, Shortness of breath, PROCEDURE: At the baseline, the EKG revealed sinus bradycardia with a heart rate of [address]-T changes. The baseline blood pressure was 159/86 mm Hg with a heart rate of 56 beats/min. Lexiscan was infused over a period of 20 seconds. A total of 0.4 milligrams of Lexiscan was infused. The stress phase was continued for a total of 5 minutes. Heart rate at the end of the stress phase was 70 with a blood pressure 143/79. The EKG at the peak infusion revealed nonspecific ST-T changes. Sestamibi was injected 20 seconds after the Lexiscan infusion. Blood pressure at the end of the recovery phase was 153/87 with a heart rate of 59 per minute. Occasional PVCs were noted during the recovery phase CONCLUSION: 1. Nonspecific EKG changes with the LexiScan infusion 2. No LexiScan induced chest pain. Lexiscan induced PVCs are noted 3. Normal blood pressure and heart rate response 4. Sestamibi/sestamibi perfusion scan pending; see separate report. Electronically Signed On 06-15-2021 14:48:28 CDT by Janet Patrick M.D. [id number]
--- NOTE | 2021-06-13 11:14 | NMCV_ITS ---
NM kim perf SPECT r/s* [id number] Flaco Blackwellord Age: 80 Gender: M : 1940 Exam Date: 06/13/2021 11:14 Ordering Phys: Judy Gama Technologist: LANA Burton Exam Location: [facility] Indications: ATHEROSCLEROTIC HEART DISEASE OF [place] CORONARY ARTERY STRESS TEST Please see separate stress test report in [facility] for full findings IMAGE PROTOCOL Rest/Stress 1 Lexiscan Day Radiopharmaceutical Dose (mCi) Administration Site Administered by Rest: Tc-99m 10.7 IV LANA Silva Sestamibi Stress:Tc-99m 32.3 IV LANA Silva Sestamibi Rest: 13-Jun-2021 60 Discovery 630 Stress: 13-Jun-2021 30 Discovery 630 0.4mg Lexiscan. Images obtained in supine and prone position. SPECT RESULTS Technical Quality: Excellent Raw Data Analysis: Normal Image Corrections: No attenuation or motion correction applied Summed Stress Score: 30 Summed Rest Score: 22 Summed Difference Score: 8 PERFUSION FINDINGS A large area of severely decreased tracer uptake in the basal, mid and apical inferior, basal and mid inferolateral, anterolateral mid anterior and apical lateral regions. Significant reversibility was noted in the anterior, anterolateral, apical and basal inferior regions. FUNCTIONAL RESULTS (calculated via Gated SPECT) Stress Image LV EF (%): 49 Stress EDV (mL):129 TID: 1.08 Stress ESV (mL):66 FUNCTIONAL FINDINGS: Segmental wall motion analysis revealed mild diffuse hypokinesia of the LV apex IMPRESSIONS 1. Myocardial perfusion imaging revealing large areas of severely decreased tracer uptake in the anterolateral, inferolateral, anterior ,inferior and apical regions with some significant reversibility in anterolateral and apical regions suggesting myocardial scarring in the distribution of all the 3 coronary arteries with significant ischemia mostly in the distribution of the left circumflex artery. 2. The left ventricular ejection fraction of 49%. 3. Segmental wall motion analysis revealing mild diffuse hypokinesia of the LV apex. 4. Mildly dilated LV cavity with an end-systolic volume of 66 ml. Compared to the study from 01/10/2020, the LV ejection fraction has improved from 29% to 49%. Dr Janet Patrick MD [facility] (Electronically Signed) Final Date: 14 June 2021 17:31 S
[2021-06-13] MEDS: regadenoson 0.4 Mg/5 ml Syringe IVP (12:59)
[2021-06-13] MEDS: aminophylline 25 mg/mL SDV 10 mL IVP ×2 (13:10→13:13)
[2021-06-13 13:25] VITALS: BP 153/87; PULSE 61
== END 2021-06-13 10:51 | disposition home or self-care (01) ==
PROVIDERS: PCP Family Medicine; Visit Provider Nurse Practitioner Family
DX: R53.83 Other fatigue (principal); R06.02 Shortness of breath; I25.10 Atherosclerotic heart disease of native coronary artery without angina pectoris
CPT/HCPCS: 78452; 93017; A9500; J0280; J2785

== ENCOUNTER 2021-06-15 09:43 | Outpatient (RCR) | payer MEDICARE, SELFPAY | END 2021-07-14 23:59 | disposition home or self-care (01) | LOC: CR 09:43 | PROVIDERS: PCP Family Medicine; Referring Provider Family Medicine; Visit Provider Family Medicine | DX: I25.10 Atherosclerotic heart disease of native coronary artery without angina pectoris (principal); I48.0 Paroxysmal atrial fibrillation | CPT/HCPCS: 93798 ==

== ENCOUNTER → 2021-06-21 14:57 | Outpatient (BNVA) | payer MEDICARE, SELFPAY | PROVIDERS: PCP Family Medicine; Visit Provider Internal Medicine | DX: R06.00 Dyspnea, unspecified (principal); I48.91 Unspecified atrial fibrillation; Z79.01 Long term (current) use of anticoagulants; I13.0 Hypertensive heart and chronic kidney disease with heart failure and stage 1 through stage 4 chronic kidney disease, or unspecified chronic kidney disease; I50.9 Heart failure, unspecified; N18.2 Chronic kidney disease, stage 2 (mild); I25.2 Old myocardial infarction; Z95.1 Presence of aortocoronary bypass graft; R94.39 Abnormal result of other cardiovascular function study; Z95.5 Presence of coronary angioplasty implant and graft | CPT/HCPCS: 99214; 99215 ==

== ENCOUNTER 2021-07-05 06:14 | Outpatient (CLI) | payer MEDICARE, SELFPAY ==
[2021-07-03 13:03] LABS: Basophils % 0.6 %; Eosinophils # 0.2 10^3/uL (0.0-0.8); Eosinophils % 3.1 %; Hematocrit 42.3 % (42.0-52.0); Hemoglobin 14.1 g/dL (11.7-16.6); Lymphocytes # 1.3 10^3/uL (0.8-4.8); Lymphocytes % 25.7 %; Mean Corpuscular HGB Conc 33.3 g/dL (30.0-36.0); Mean Corpuscular Hemoglobin 29.7 pg (28.0-34.0); Mean Corpuscular Volume 89.1 fl (80-94); Mean Platelet Volume 10.6 fL (7.4-10.4); Monocytes # 0.4 10^3/uL (0.2-0.9); Monocytes % 7.4 %; Neutrophils # 3.05 10^3/uL (1.8-7.7); Neutrophils % 62.6 %; Nucleated Red Blood Cells % 0 %; Platelet Count 142 10^3/cmm (130-400); Red Blood Count 4.75 10^6/uL (4.1-5.3); Red Cell Distribution Width 12.9 % (12.1-15.1); White Blood Count 4.9 10^3/uL (4.0-10.0)
[2021-07-03 13:19] LABS: Blood Urea Nitrogen 24 mg/dL (8-23); Calcium 9.6 mg/dL (8.5-10.5); Carbon Dioxide 23 mmol/L (22-29); Chloride 105 mmol/L (98-107); Glucose 159 mg/dL (65-115); INR 1.13 (0.83-1.21); Osmolality Calculated 295 mOsm/kg (285-295); Prothrombin Time (Patient) 14.8 Seconds (12.0-15.1); Sodium 139 mmol/L (136-145)
--- NOTE | 2021-07-05 06:00 | XACV_ITS ---
Exam Room: [facility] Ht: 170 cm Wt: 83 kg BSA: 2.01 m2 Gender: Male : 1940 Any Known Allergies: Other Exam Priority: Routine Indication(s): - Abnormal adenosine perfusion study Procedure(s): Procedure Description: Diagnostic procedure Procedure Description: Venous Graft Catheterization Procedure Description: QUICK Graft Catheterization Procedure Description: Coronary Angiography Diagnostic Cath Status: Elective Diagnostic Findings * Sequential SVG graft from Ascending Aorta to Posterior Descending Right: Has diffuse moderate to severe distal vessel disease. * QUICK to LAD : Patent. * INDICATION: Chest pain/abnormal stress test. * SVG to OM: Known occluded. * Left Main: total occlusion, ISAAC: 0 flow. * Proximal Right Coronary Artery: total occlusion, ISAAC: 0 flow. * Coronary angiography shows right dominance. Conclusions 1. QUICK to LAD is patent. SVG to OM is known occluded. SVG to PDA has moderate to severe diffuse disease. 2. Severe multivessel [place] coronary artery disease. 3. Patient has prior CABG. Recommendations * Aggressive risk factor modification. * Outpatient cardiology follow up in 4 weeks. Interventional RX Recommendation: medical therapy and/or counseling Diagnostic RX Recommendation: medical therapy and/or counseling Pressures Phase:Rest AO : 154 / 82 ( 114 ) @ 11:10:00 AM Clinical Evaluation EBL: 5mL-10mL Procedural Details Procedure Consent Obtained. Admit Source: Out Patient. Current Diagnosis : Chest Pain. Pre-Procedure Time Out. Identified patient by full name and date of as verbalized by the patient/guarantor. Does the consent match the physician's order: Yes. Accurate & Complete Informed Consent: Yes. Inpatient/Outpatient History & Physical on Chart: Yes. If H&P is completed, is and addenduem needed: No; If yes, is the addendum complete: N/A. Visualize and Verify Site with Patient/Guarantor: N/A. Relevant Radiology Images available: N/A. The risks, benefits, and alternatives of sedation and/or procedure were discussed by physician. The patient agrees to continue. Procedure started. [facility] Clinical Fraility Score: 3: Managing Well. Retail Support Specialist Indications: Chest Pain, Abnormal stress test. Chest Pain Symptom Assessment: Atypical Angina. Cardiovascular Instability: No. Correct patient, site and procedure confirmed by cath team. Current diagnosis: Chest Pain, Abnormal stress test. PERRLA. Strong, equal hand bookkeeping machine mechanic bilaterally. Lungs clear x 5 lobes. IV Site on Arrival: 22 gauge in the left hand. IV Fluids: 0.9% NaCl at KVO. 500 mL infused prior to lab manager. Pre Procedural Pulses: bilateral radial was 3+. Pre Procedural Pulses: bilateral posterior tibial was 3+. Pre Procedural Pulses: bilateral dorsalis pedis was 3+. Oxygen started at 3liters/min via nasal canula. bilateral groins was prepped with chloroprep then draped in the usual sterile fashion. Physician notified. Baseline sample Acquired. HR: 63 BPM. Family available and updated by MD prior to the start of the procedure. Physician arrived. Physician scrubbed in. Equipment: 6F - Femoral. Cardiac Cath Pack. ACIST Manifold Kit Model BT 2000. Heparinized Saline (2 units/mL), 1000 mL bag. Kit, Micropuncture. Equipment: 5F - Femoral. Immediate Pre-Procedure Time Out. Correct Patient: Yes; Correct Procedure: Yes; Correct Site: Yes; Correct Patient Position: Yes; Correct Supplies: Yes; Dried Flammable Prep: Yes; Blood Products Available: N/A;. Lidocaine 1% infiltrated to the right groin. Arterial access obtained with micropuncture set. A CRD 5F JL4 Diagnostic Catheter was advanced over the wire and used for Left coronary angiography. Multiple views taken of left coronary artery. Catheter removed over the wire. A CRD 5F JR4 Diagnostic Catheter was advanced over the wire and used for Right coronary angiography. Multiple views taken of right coronary artery. Catheter redirected to the SVG's and QUICK. SVG's to RCA visualized and patent. Standard wire inserted. Catheter directed towards the QUICK. Standard wire out. Glidewire inserted. QUICK cannulated. Glidewire out. QUICK to LAD visualized. Physician review of films. A Right femoral angiogram was performed to determine safe placement of closure device. Right Groin was chloraprepped. Lidocaine 1% infiltrated to the right groin. A Angio-Seal VIP ([facility]) was successful obtaining hemostatsis at the Right Femoral artery insertion site. Angioseal deployed. EXP 02-13-2022 LOT # [id number]. Medication Waste: Versed 1 mg. Fentanyl 50 mcg. Lidocaine 1 ml. Heparin 1000 units. Angioseal placed without complications. No signs or symptoms of hematoma noted. Sterile dressing applied per usual sterile fashion. Post Procedure: Pulses reassessed and unchanged. PERRLA. Strong, equal hand bookkeeping machine mechanic bilaterally. No VTE prophylaxis required. Total IV fluids: 91.5 mL. Fluoro: 6:05. Contrast type used: Omnipaque 300 mg/mL, 150 mL bottle. [id number]. Post-op diagnosis: Severe [place] CAD. Diffuse disease of SVG to RCA. Estimated blood loss: 5mL-10mL. Responsiveness - Normal response to verbal stimuli; alert and oriented, PERRLA. Airway - Unaffected, no intervention required; spontaneous ventilation. Circulation: W/N/L, pulses unchanged. Nausea/Vomiting: No. Procedure completed. Patient transferred by bed to 1st floor. Vital chart was stopped. Access Site Site: Right Femoral artery Sheath Size: 5 Fr Hemostasis Method: Angio-Seal VIP ([facility]) Hemostasis Success: Successful Procedure Medications Start: 9:52 AM Stop: 9:52 AM Medication: Versed Amount: 1 mg Route: I.V. Start: 9:52 AM Stop: 9:52 AM Medication: Fentanyl Amount: 50 mcg Route: I.V. I, the attending physician, have reviewed and verified all procedure medications. Yes, all medications given per verbal order History/Risk Factors Hypertension: No Dyslipidemia: No Peripheral Arterial Disease (PAD): No Myocardial Infarction (NM): Yes Obesity: No Renal Disease: No Tobacco Use: Never Prior Interventions PCI: Yes CABG: Yes Valve Surgery: No Date of PCI: 07/27/2019 Report Signatures Finalized by Christoph Bustos MD on 07/17/2021 09:41 PM
--- NOTE | 2021-07-05 09:52 | W.PM.OPSUD ---
Surgery/Procedure H&P Update DATE OF PROCEDURE: July 05, 2021 DATE H&P PERFORMED: 06/21/21 H&P UPDATE INFORMATION: I have reviewed H&P completed within last 30 days, I have examined patient prior to procedure and No changes to prior documentation PREOP DIAGNOSIS: Fatigue/chest pain/abnormal stress test PRIMARY INDICATION FOR PROCEDURE: Fatigue/chest pain/abnormal stress test PLANNED PROCEDURE: Operation Date: 07/05/21 10:00 Proposed Procedures p Cardiac Catheterization(Left) - Christoph Bustos M.D Possible percutaneous coronary intervention PATIENT REASSESSED PRIOR TO SEDATION, WITH NO CHANGE NOTED: Yes PHYSICAL EXAM: alert, oriented x 3, clear to auscultation bilaterally and regular rate & rhythm AIRWAY EVAL/ANESTHESIA PLAN: ASA III, Monitored Anesthesia, Local Anesthesia, Risks, benefits & alternatives of sedation and/or procedure discussed and Patient agrees to continue as planned
--- NOTE | 2021-07-05 18:02 | PC.NURSE ---
Discharge Note Patient discharged to home via private vehicle accompanied by spouse. 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 Mobile pharmacy medications and/or prescriptions provided. Belongings/home medications returned.
== END 2021-07-05 17:57 | disposition home or self-care (01) ==
LOC: CCL 06:18 → CSU 09:50
PROVIDERS: PCP Family Medicine; Visit Provider Internal Medicine
DX: I25.10 Atherosclerotic heart disease of native coronary artery without angina pectoris (principal); Z95.1 Presence of aortocoronary bypass graft; I25.2 Old myocardial infarction; Z86.16 Personal history of COVID-19; I48.91 Unspecified atrial fibrillation; I13.0 Hypertensive heart and chronic kidney disease with heart failure and stage 1 through stage 4 chronic kidney disease, or unspecified chronic kidney disease; N18.2 Chronic kidney disease, stage 2 (mild); I50.9 Heart failure, unspecified; Z82.49 Family history of ischemic heart disease and other diseases of the circulatory system
CPT/HCPCS: 36415; 80048; 85025; 85610; 93455; 96360; 99152; 99153; C1760; C1769; C1887; C1894; J1644; J2250; J3010; J3490; J7030; Q9967

== ENCOUNTER 2021-07-09 09:31 | Outpatient (CLI) | payer MEDICARE, SELFPAY ==
[2021-07-09 13:55] LABS: Blood Urea Nitrogen 21 mg/dL (8-23); Calcium 8.2 mg/dL (8.5-10.5); Carbon Dioxide 16 mmol/L (22-29); Chloride 104 mmol/L (98-107); Glucose 78 mg/dL (65-115); Osmolality Calculated 284 mOsm/kg (285-295); Sodium 136 mmol/L (136-145)
[2021-07-09 14:04] LABS: Anion Gap 20.7 (5-19); Potassium 4.7 mmol/L (3.5-5.1)
== END 2021-07-09 09:32 | disposition home or self-care (01) ==
LOC: LAB 09:33
PROVIDERS: PCP Family Medicine; Visit Provider Internal Medicine
DX: N18.9 Chronic kidney disease, unspecified (principal)
CPT/HCPCS: 36415; 80048

== ENCOUNTER 2021-07-16 10:11 | Outpatient (RCR) | payer MEDICARE, SELFPAY | END 2021-08-14 23:59 | disposition home or self-care (01) | LOC: CR 10:11 | PROVIDERS: PCP Family Medicine; Referring Provider Family Medicine; Visit Provider Family Medicine | DX: I48.91 Unspecified atrial fibrillation (principal); I25.10 Atherosclerotic heart disease of native coronary artery without angina pectoris | CPT/HCPCS: 93798 ==

== ENCOUNTER → 2021-07-18 10:50 | Outpatient (BNVA) | payer MEDICARE, SELFPAY | PROVIDERS: PCP Family Medicine; Visit Provider Nurse Practitioner Family | DX: I25.118 Atherosclerotic heart disease of native coronary artery with other forms of angina pectoris (principal); I13.0 Hypertensive heart and chronic kidney disease with heart failure and stage 1 through stage 4 chronic kidney disease, or unspecified chronic kidney disease; I50.9 Heart failure, unspecified; N18.9 Chronic kidney disease, unspecified; Z95.1 Presence of aortocoronary bypass graft; Z79.01 Long term (current) use of anticoagulants | CPT/HCPCS: 99214 ==

== ENCOUNTER → 2021-08-06 15:21 | Outpatient (BNVA) | payer MEDICARE, OTHER, SELFPAY | PROVIDERS: PCP Family Medicine; Visit Provider Family Medicine | DX: Z00.00 Encounter for general adult medical examination without abnormal findings (principal) | CPT/HCPCS: 84153 ==

== ENCOUNTER 2021-08-15 06:00 | Outpatient (CLI) | payer MEDICARE, SELFPAY | END 2021-08-15 06:01 | disposition home or self-care (01) | LOC: LAB 09-06 12:55 | PROVIDERS: PCP Family Medicine; Visit Provider Internal Medicine | DX: Z09 Encounter for follow-up examination after completed treatment for conditions other than malignant neoplasm (principal); I50.9 Heart failure, unspecified; I48.91 Unspecified atrial fibrillation; I10 Essential (primary) hypertension; R06.00 Dyspnea, unspecified; N18.2 Chronic kidney disease, stage 2 (mild) | CPT/HCPCS: 80048; 83880; 99214 ==

== ENCOUNTER 2021-08-15 09:40 | Outpatient (RCR) | payer SELFPAY | END 2021-09-13 23:59 | disposition home or self-care (01) | LOC: CR 09:40 | PROVIDERS: PCP Family Medicine; Referring Provider Family Medicine; Visit Provider Family Medicine | DX: I25.10 Atherosclerotic heart disease of native coronary artery without angina pectoris (principal); I48.91 Unspecified atrial fibrillation | CPT/HCPCS: 80048; 83880; 99214 ==

== ENCOUNTER 2021-09-05 09:24 | Outpatient (CLI) | payer MEDICARE, SELFPAY ==
[2021-09-05 10:48] LABS: Anion Gap 13.9 (5-19); Blood Urea Nitrogen 23 mg/dL (8-23); Calcium 9.2 mg/dL (8.5-10.5); Carbon Dioxide 24 mmol/L (22-29); Chloride 102 mmol/L (98-107); Glucose 121 mg/dL (65-115); NT Pro B Type Natriuretic Pept 359 pg/mL (0-450); Osmolality Calculated 287 mOsm/kg (285-295); Potassium 3.9 mmol/L (3.5-5.1); Sodium 136 mmol/L (136-145)
== END 2021-09-05 09:25 | disposition home or self-care (01) ==
LOC: LAB 09:26
PROVIDERS: PCP Family Medicine; Visit Provider Internal Medicine
DX: I50.9 Heart failure, unspecified (principal); I10 Essential (primary) hypertension; I48.91 Unspecified atrial fibrillation
CPT/HCPCS: 36415; 80048; 83880

== ENCOUNTER 2021-09-14 09:11 | Outpatient (CLI) | payer MEDICARE, SELFPAY ==
--- NOTE | 2021-09-14 09:29 | MR_ITS ---
WS: [id number] MRI HEAD WITHOUT CONTRAST TECHNIQUE: Sagittal T1, T2 axial, T2 axial FLAIR, axial and coronal T1 images, axial susceptibility w eighted imaging, axial diffusion weighted images, and coronal T2 images were obtained. CLINICAL INFORMATION: TIA COMPARISON: None. FINDINGS: No evidence of restricted diffusion to suggest acute ischemia. Ventricular system and basal cisterns are patent. Moderate small vessel changes. Mild parenchymal vol ume loss. Parenchymal volume loss worse in the parietal lobes. Normal posterior fossa. Normal vascular flow voids at the skull base. No extra-axial fluid collection s. No evidence of mass or mass effect. Mild mucosal thickening in the ethmoid air cells. Mastoid air cells well aerated. Normal optic chiasm and pituitary infundibulum. Temporal lobes and hippocampal formations are normal in appearance. Normal cavernous sinuses and Meckel's cave. Hemosiderin along the RIGHT parasagittal occipital lobe measuring 5 mm. Tiny punctate focus of hemosi erika in the LEFT cerebellum. Tiny punctate foci of hemosiderin in the RIGHT frontal white matter and RIGHT frontoparietal deep white matter. MR/MR head wo con* [id number] IMPRESSION: 1. No evidence of restricted diffusion to suggest acute ischemia. 2. Moderate small vessel changes with mild parenchymal volume loss worse in th e parietal lobes. 3. Temporal lobes and hippocampal formations are normal in appearance. 4. A few scattered chronic foci of hemosiderin the largest in the RIGHT parasa gittal occipital lobe measuring 5 mm. 5. No other significant findings.
--- NOTE | 2021-09-14 09:29 | USCV_ITS ---
Jeremiah Blackwell Age: 81 Gender: M : 1940 Exam Date: 09/14/2021 09:45 Ordering Phys: Cristopher Carter MD Technologist: RIOS [place] [facility] [place]: DIZZINESS. Risk Factors: Previous Vascular Surgery: Right Brachial BP: / Left Brachial BP: / Right Left Velocity (cm/s) Spectral Plaque Velocity (cm/s) Spectral Plaque Syst/Diast Broadening Syst/Diast Broadening 50.50/ 10.10 Prox CCA 57.40 / 13.00 52.80/ 10.10 Mid CCA 88.60 / 19.40 55.20/ 13.20 Distal CCA 61.40 / 14.80 Hetro 55.20/ 13.80 Prox ICA 59.80 / 21.00 51.30/ 18.40 Mid ICA 50.50 / 18.60 48.10/ 16.40 Distal ICA 35.70 / 12.60 83.10 ECA 93.20 1.00 ICA/CCA 0.68 Antegrade Vertebral Antegrade 25.20/ 6.80 cm/s 35.10/ 14.00 cm/s Tri Subclavian Tri 66.00 70.10 FINDINGS Comparison: none available. No significant elevation of systolic or diastolic velocities. Waveforms are normal. Mild bilateral carotid atherosclerosis. Antegrade vertebral arteries. CONCLUSIONS Bilateral ICA stenosis less than 50%. Mild carotid atherosclerosis. Dr. Nevin Espinal DO (Electronically Signed) Final Date: 14 September 2021 11:27 S
== END 2021-09-14 09:12 | disposition home or self-care (01) ==
LOC: RAD 09:11
PROVIDERS: PCP Family Medicine; Visit Provider Family Medicine
DX: I65.23 Occlusion and stenosis of bilateral carotid arteries (principal); R42 Dizziness and giddiness
CPT/HCPCS: 70551; 93880

== ENCOUNTER 2021-09-20 13:38 | Outpatient (CLI) | payer MEDICARE, SELFPAY ==
--- NOTE | 2021-09-20 13:45 | USCV_ITS ---
Jeremiah Blackwell Age: 81 Gender: M : 1940 Exam Date: 09/20/2021 14:01 Ordering Phys: Judy Gama Technologist: HAROLDO [place] [facility] [place]ication: CHRONIC HEART FAILURE BP: 148 / 62 HR: 59 Rhythm: Sinus Technical Quality: Adequate MEASUREMENTS (Male / Female) Normal Values 2D ECHO LV Diastolic Diameter PLAX 5.2 cm 4.2 - 5.9 / 3.9 - 5.3 cm LV Systolic Diameter PLAX 4.3 cm IVS Diastolic Thickness 1.8 cm 0.6 - 1.0 / 0.6 - 0.9 cm IVS Systolic Thickness 2.2 cm LVPW Diastolic Thickness 1.2 cm 0.6 - 1.0 / 0.6 - 0.9 cm LVPW Systolic Thickness 1.6 cm LVOT Diameter 2.0 cm LV Ejection Fraction 2D Teich 34.4 % LV Ejection Fraction MOD 2C 61.9 % LV Ejection Fraction 2C AL 62.3 % LA Diameter 4.3 cm LA Width 3.1 cm LA Height 4.3 cm RA Width 2.6 cm RA Height 4.2 cm Aorta at Sinotubular Diameter 3.3 cm IVC Diameter 1.4 cm M-MODE Aortic Annulus Diameter 3.5 cm LA Ao Ratio MM 1.2 MV E Point Septal Separation 0.5 cm DOPPLER AV Peak Velocity 145.0 cm/s LVOT Peak Velocity 116.0 cm/s AV Area Cont Eq vti 2.0 cm squared AV Area Cont Eq pk 2.5 cm squared MV Peak Velocity 118.0 cm/s MV Area PHT 3.5 cm squared Mitral E to A Ratio 0.8 MV E' Velocity 43.5 cm/s Mitral E to MV E' Ratio 12.5 Mitral E to LV E' Lateral Ratio 11.9 Mitral E to LV E' Septal Ratio 13.1 TR Peak Velocity 233.5 cm/s TR Peak Gradient 21.8 mmHg TR Mean Velocity 215.1 cm/s TR Mean Gradient 18.9 mmHg TR Velocity Time Integral 86.0 cm TV Peak E Velocity 66.0 cm/s Right Atrial Pressure 3.0 mmHg Pulmonary Artery Systolic Pressu 24.8 mmHg PV Peak Velocity 93.0 cm/s RV Acceleration Time 0.1 s RV Ejection Time 0.3 s RV AcT/ET 0.2 FINDINGS Left Ventricle Normal left ventricular size. LV systolic function is normal with EF of 55-60%. No regional wall motion abnormalities. Moderate left ventricular hypertrophy. Grade 1 diastolic dysfunction Right Ventricle The right ventricle is normal in size and function. Right Atrium The right atrium is normal in size. Left Atrium The left atrium is normal in size. Mitral Valve Mild mitral annular calcification without significant stenosis or prolapse. There is trace mitral regurgitation. Aortic Valve Structurally normal aortic valve without significant sclerosis or stenosis. There is mild to moderate aortic regurgitation. Tricuspid Valve Structurally normal tricuspid valve without significant stenosis. Mild tricuspid regurgitation. Pulmonary artery systolic pressure is normal. Pulmonic Valve Mild pulmonic regurgitation. Pericardium Normal pericardium without effusion. Aorta Mildly dilated ascending aorta IVC CONCLUSIONS LV systolic function is normal with EF of 55-60% Moderate left ventricular hypertrophy. Grade 1 diastolic dysfunction Trace mitral regurgitation Mild to moderate aortic regurgitation Mild tricuspid regurgitation. Mild pulmonic regurgitation Compared to prior echocardiogram from 02/21/2020, aortic regurgitation has progressed slightly and is mild to moderate now Christoph Bustos MD (Electronically Signed) Final Date: 27 September 2021 12:12 S
== END 2021-09-20 13:39 | disposition home or self-care (01) ==
LOC: RAD 13:38
PROVIDERS: PCP Family Medicine; Visit Provider Nurse Practitioner Family
DX: I50.9 Heart failure, unspecified (principal); I08.0 Rheumatic disorders of both mitral and aortic valves
CPT/HCPCS: 93306

== ENCOUNTER 2021-09-27 10:16 | Outpatient (CLI) | payer MEDICARE, SELFPAY ==
[2021-09-27 11:46] LABS: Blood Urea Nitrogen 20 mg/dL (8-23); Calcium 9.3 mg/dL (8.5-10.5); Carbon Dioxide 25 mmol/L (22-29); Chloride 103 mmol/L (98-107); Glucose 123 mg/dL (65-115); NT Pro B Type Natriuretic Pept 371 pg/mL (0-450); Osmolality Calculated 290 mOsm/kg (285-295); Sodium 138 mmol/L (136-145)
[2021-09-27 11:52] LABS: Anion Gap 14.4 (5-19); Potassium 4.4 mmol/L (3.5-5.1)
== END 2021-09-27 10:17 | disposition home or self-care (01) ==
LOC: LAB 10:37
PROVIDERS: PCP Family Medicine; Visit Provider Internal Medicine
DX: I50.9 Heart failure, unspecified (principal); I48.91 Unspecified atrial fibrillation; I10 Essential (primary) hypertension
CPT/HCPCS: 36415; 80048; 83880

== ENCOUNTER 2021-10-15 13:43 | Outpatient (RCR) | payer SELFPAY | END 2021-11-14 23:59 | disposition home or self-care (01) | LOC: CR 13:43 | PROVIDERS: PCP Family Medicine; Referring Provider Family Medicine; Visit Provider Family Medicine | DX: I25.10 Atherosclerotic heart disease of native coronary artery without angina pectoris (principal); I48.91 Unspecified atrial fibrillation ==

== ENCOUNTER 2021-11-15 12:37 | Outpatient (RCR) | payer SELFPAY | END 2021-12-14 23:59 | disposition home or self-care (01) | LOC: CR 12:37 | PROVIDERS: PCP Family Medicine; Referring Provider Family Medicine; Visit Provider Family Medicine | DX: I13.0 Hypertensive heart and chronic kidney disease with heart failure and stage 1 through stage 4 chronic kidney disease, or unspecified chronic kidney disease (principal); I50.9 Heart failure, unspecified; R60.0 Localized edema; I48.91 Unspecified atrial fibrillation; N18.9 Chronic kidney disease, unspecified | CPT/HCPCS: 99214 ==

== ENCOUNTER → 2021-11-27 09:11 | Outpatient (BNVA) | payer SELFPAY | PROVIDERS: PCP Family Medicine; Visit Provider Family Medicine | DX: J06.9 Acute upper respiratory infection, unspecified (principal) | CPT/HCPCS: 87426 ==

== ENCOUNTER 2021-12-06 09:10 | Outpatient (CLI) | payer MEDICARE, SELFPAY ==
--- NOTE | 2021-12-06 09:35 | XR_ITS ---
WS: [id number] Chest 2 views, 12/06/2021 Clinical Data: lower respiratory infection Comparison: PA and lateral chest, 05/31/2020. Findings: No nodules, masses or effusions are seen. The heart is normal. The pulmonary vascularity is not increased. No pneumonia or pneumothorax is seen. There is minimal bibasilar atelectasis. The aor tic arch and descending thoracic aorta show tortuosity. There are calcified granulomas in both johann. Midline sternotomy sutures are present. There are probably ingested tablets in the left upper quadran t. There are clips in the right upper quadrant from a cholecystectomy. XR/XR chest 2V* [id number] Impression: Atherosclerosis and old granulomatous disease.
== END 2021-12-06 09:11 | disposition home or self-care (01) ==
PROVIDERS: PCP Family Medicine; Visit Provider Family Medicine
DX: J22 Unspecified acute lower respiratory infection (principal); R06.00 Dyspnea, unspecified; I70.0 Atherosclerosis of aorta
CPT/HCPCS: 71046

== ENCOUNTER 2022-01-22 07:18 | Outpatient (CLI) | payer MEDICARE, SELFPAY ==
--- NOTE | 2022-01-22 07:30 | CT_ITS ---
WS: [id number] CT SINUSES TECHNIQUE: Noncontrast CT of the paranasal sinuses with coronal and sagittal reformatted images. CLINICAL INFORMATION: Chronic sinusitis COMPARISON: None. DLP: 325.[address] scans at [facility] use at least one of these dose optimization techniques: automated e xposure control; mA and/or kV adjustment per patient size (includes targeted exams where dose is matc hed to clinical indication); or iterative reconstruction. FINDINGS: Mild RIGHT to LEFT nasal septal deviation with a leftward directed spur. Nasal septal deviation measu res 5.2 mm. Hypoplastic frontal sinuses are well aerated. Ethmoid air cells well aerated. Mild mucosal thickening in the frontal ethmoidal recesses. Sphenoid sinuses are well aerated. Mild mucosal thickening along the sphenoid sinus ostia which are patent. Polypoid mucosal thickening inferior turbinates. Ostiomeatal units are patent. Mild mucosal thickening in the maxillary sinuses measuring 2 mm on the RIGHT. Small LEFT maxillary retention cyst measuring 5 mm. Normal posterior nasopharynx. Normal parap haryngeal fat. LEFT mastoid air cells well aerated. Trace mucosal thickening LEFT mastoid tip. Near c omplete opacification RIGHT mastoid air cells with partial opacification of the middle ear. Vascular calcification. CT/CT sinus wo con* [id number] IMPRESSION: 1. Nasal septal deviation RIGHT to LEFT measuring 5.2 mm with a leftward direc guerita spur. 2. Paranasal sinuses are well aerated. Mild mucosal thickening in the frontal ethmoidal recesses. 2 mm mucosal thickening RIGHT maxillary sinus. 3. Small retention cyst LEFT inferior maxillary sinus measuring 5 mm. 4. Ostiomeatal units are patent. 5. Near complete opacification RIGHT mastoid air cells with partial opacificat ion of the middle ear likely infectious or inflammatory.
== END 2022-01-22 07:19 | disposition home or self-care (01) ==
PROVIDERS: PCP Family Medicine; Visit Provider Otolaryngology
DX: J32.9 Chronic sinusitis, unspecified (principal); J34.2 Deviated nasal septum; J34.1 Cyst and mucocele of nose and nasal sinus
CPT/HCPCS: 70486

== ENCOUNTER → 2022-01-24 11:27 | Outpatient (BNVA) | payer MEDICARE, SELFPAY | PROVIDERS: PCP Family Medicine; Visit Provider Family Medicine | DX: R53.83 Other fatigue (principal); N18.9 Chronic kidney disease, unspecified; I48.91 Unspecified atrial fibrillation; I50.9 Heart failure, unspecified; E78.5 Hyperlipidemia, unspecified; I10 Essential (primary) hypertension | CPT/HCPCS: 80053; 84443; 85025 ==

== ENCOUNTER → 2022-01-28 10:33 | Outpatient (BNVA) | payer MEDICARE, SELFPAY | PROVIDERS: PCP Family Medicine; Visit Provider Otolaryngology | DX: H70.11 Chronic mastoiditis, right ear (principal); H65.21 Chronic serous otitis media, right ear; H91.93 Unspecified hearing loss, bilateral; J34.2 Deviated nasal septum; J32.9 Chronic sinusitis, unspecified | CPT/HCPCS: 99213 ==

== ENCOUNTER → 2022-02-19 08:36 | Outpatient (BNVA) | payer MEDICARE, SELFPAY | PROVIDERS: PCP Family Medicine; Visit Provider Otolaryngology | DX: H69.81 Other specified disorders of Eustachian tube, right ear (principal); H70.11 Chronic mastoiditis, right ear; H65.21 Chronic serous otitis media, right ear | CPT/HCPCS: 69433; 99213 ==

== ENCOUNTER → 2022-02-27 12:53 | Outpatient (BNVA) | payer MEDICARE, SELFPAY | PROVIDERS: PCP Family Medicine; Visit Provider Otolaryngology | DX: H69.81 Other specified disorders of Eustachian tube, right ear (principal); H70.11 Chronic mastoiditis, right ear; H65.21 Chronic serous otitis media, right ear; Z96.22 Myringotomy tube(s) status | CPT/HCPCS: 99024 ==

== ENCOUNTER → 2022-03-21 16:40 | Outpatient (BNVA) | payer OTHER, SELFPAY | PROVIDERS: PCP Family Medicine; Visit Provider Internal Medicine | DX: Z09 Encounter for follow-up examination after completed treatment for conditions other than malignant neoplasm (principal); I13.0 Hypertensive heart and chronic kidney disease with heart failure and stage 1 through stage 4 chronic kidney disease, or unspecified chronic kidney disease; I50.9 Heart failure, unspecified; R06.00 Dyspnea, unspecified; I48.91 Unspecified atrial fibrillation; N18.2 Chronic kidney disease, stage 2 (mild) | CPT/HCPCS: 36415; 80048; 83880 ==

== ENCOUNTER → 2022-04-25 14:54 | Outpatient (BNVA) | payer OTHER, SELFPAY | PROVIDERS: PCP Family Medicine; Visit Provider Family Medicine | DX: N39.0 Urinary tract infection, site not specified (principal) | CPT/HCPCS: 81000 ==

== ENCOUNTER 2022-05-02 09:56 | Outpatient (CLI) | payer OTHER, MEDICARE, SELFPAY ==
[2022-05-02 11:11] LABS: Anion Gap 15.8 (5-19); Blood Urea Nitrogen 20 mg/dL (8-23); Calcium 9.3 mg/dL (8.5-10.5); Carbon Dioxide 23 mmol/L (22-29); Chloride 103 mmol/L (98-107); Glucose 129 mg/dL (65-115); NT Pro B Type Natriuretic Pept 222 pg/mL (0-450); Osmolality Calculated 290 mOsm/kg (285-295); Potassium 3.8 mmol/L (3.5-5.1); Sodium 138 mmol/L (136-145)
== END 2022-05-02 09:57 | disposition home or self-care (01) ==
LOC: LAB 09:59
PROVIDERS: PCP Family Medicine; Visit Provider Internal Medicine
DX: I48.91 Unspecified atrial fibrillation (principal); I50.9 Heart failure, unspecified
CPT/HCPCS: 36415; 80048; 83880

== ENCOUNTER → 2022-06-11 14:18 | Outpatient (BNVA) | payer MEDICARE, SELFPAY | PROVIDERS: PCP Family Medicine; Visit Provider Otolaryngology | DX: H69.81 Other specified disorders of Eustachian tube, right ear (principal); H70.11 Chronic mastoiditis, right ear | CPT/HCPCS: 99212; 99213 ==

== ENCOUNTER 2022-06-17 06:20 | Outpatient (CLI) | payer MEDICARE, SELFPAY ==
--- NOTE | 2022-06-17 06:30 | CT_ITS ---
WS: [id number] CT TEMPORAL BONES TECHNIQUE: Noncontrast CT of the temporal bones with coronal and sagittal reformatted images. CLINICAL INFORMATION: chronic infection of right ear COMPARISON: None. DLP: 357.[address] scans at [facility] use at least one of these dose optimization techniques: automated e xposure control; mA and/or kV adjustment per patient size (includes targeted exams where dose is matc hed to clinical indication); or iterative reconstruction. FINDINGS: Mastoid air cells well aerated. Mild mucosal thickening RIGHT mastoid tip. RIGHT to LEFT na judy septal deviation with leftward directed spur measuring 6 mm. Normal posterior nasopharynx. Normal parapharyngeal fat. Vascular calcification. Mild mucosal thickening ethmoid air cells. RIGHT: Mild mucosal thickening RIGHT mastoid tip. Normal external auditory canal. Ossicles are normal in shruthi earance. Mild thickening and retraction RIGHT tympanic membrane with slight soft tissue thickening. M ild soft tissue thickening along the stapes foot plate. Middle ear is otherwise well aerated. Normal tegmen tympani. Semicircular canals and cochlea are normal in appearance. Prussak's space is normal. Normal inner ear structures. Normal vestibular aqueduct. Facial nerve recess is normal. LEFT: Mastoid air cells are well aerated. Normal external auditory canal. Ossicles are normal in appearance . Middle ear is well aerated. Normal tegmen tympani. Semicircular canals and cochlea are normal in ap pearance. Prussak's space is normal. Normal inner ear structures. Normal vestibular aqueduct. Facial nerve recess is normal. CT/CT temporal bone wo con* [id number] IMPRESSION: 1. Mastoid air cells are well aerated. Mild mucosal thickening RIGHT mastoid t ip. 2. Mild soft tissue thickening along the RIGHT tympanic membrane with mild ret raction. Mild soft tissue thickening along the stapes footplate. Middle ear is otherwise well aerated. Normal scutum 3. Normal inner ear structures bilaterally. 4. Mild mucosal thickening ethmoid air cells.
== END 2022-06-17 06:21 | disposition home or self-care (01) ==
PROVIDERS: PCP Family Medicine; Visit Provider Otolaryngology
DX: H66.91 Otitis media, unspecified, right ear (principal)
CPT/HCPCS: 70480

== ENCOUNTER → 2022-06-19 13:29 | Outpatient (BNVA) | payer MEDICARE, SELFPAY | PROVIDERS: PCP Family Medicine; Visit Provider Otolaryngology | DX: H70.11 Chronic mastoiditis, right ear (principal); H69.81 Other specified disorders of Eustachian tube, right ear | CPT/HCPCS: 99213 ==

== ENCOUNTER → 2022-07-26 08:43 | Outpatient (BNVA) | payer MEDICARE, SELFPAY | PROVIDERS: PCP Family Medicine; Visit Provider Family Medicine | DX: E05.90 Thyrotoxicosis, unspecified without thyrotoxic crisis or storm (principal); I25.118 Atherosclerotic heart disease of native coronary artery with other forms of angina pectoris; I48.91 Unspecified atrial fibrillation; I50.9 Heart failure, unspecified | CPT/HCPCS: 80053; 80061; 83735; 83880; 84443; 85025 ==

== ENCOUNTER → 2022-07-26 09:49 | Outpatient (BNVA) | payer MEDICARE, SELFPAY | PROVIDERS: PCP Family Medicine; Visit Provider Internal Medicine | DX: I13.0 Hypertensive heart and chronic kidney disease with heart failure and stage 1 through stage 4 chronic kidney disease, or unspecified chronic kidney disease (principal); N18.2 Chronic kidney disease, stage 2 (mild); I50.9 Heart failure, unspecified; I48.91 Unspecified atrial fibrillation; R06.00 Dyspnea, unspecified; Z79.01 Long term (current) use of anticoagulants; E78.5 Hyperlipidemia, unspecified | CPT/HCPCS: 80053; 80061; 83735; 83880; 84443; 85025; 99214 ==

== ENCOUNTER 2022-08-14 07:22 | Outpatient (CLI) | payer MEDICARE, SELFPAY ==
--- NOTE | 2022-08-14 07:45 | USCV_ITS ---
Jeremiah Blackwell Age: 82 Gender: M : 1940 Exam Date: 08/14/2022 07:43 Ordering Phys: Christoph Bustos M.D ([email or web address]) Technologist: CT [place] [facility] [place]: sob BP: 140 / 70 HR: 59 Rhythm: Sinus Technical Quality: Adequate MEASUREMENTS (Male / Female) Normal Values 2D ECHO LV Diastolic Diameter PLAX 5.9 cm 4.2 - 5.9 / 3.9 - 5.3 cm LV Systolic Diameter PLAX 4.6 cm IVS Diastolic Thickness 1.2 cm 0.6 - 1.0 / 0.6 - 0.9 cm IVS Systolic Thickness 2.1 cm LVPW Diastolic Thickness 1.0 cm 0.6 - 1.0 / 0.6 - 0.9 cm LVPW Systolic Thickness 2.0 cm LVOT Diameter 2.1 cm LV Ejection Fraction 2D Teich 37.6 % LV Ejection Fraction MOD 2C 62.2 % LV Ejection Fraction 2C AL 62.4 % LA Diameter 4.3 cm Aorta at Sinotubular Diameter 3.3 cm M-MODE Aortic Annulus Diameter 4.1 cm LA Ao Ratio MM 1.2 MV E Point Septal Separation 1.1 cm DOPPLER AV Peak Velocity 149.0 cm/s LVOT Peak Velocity 105.0 cm/s AV Area Cont Eq vti 2.4 cm squared AV Area Cont Eq pk 2.4 cm squared MV Peak Velocity 129.0 cm/s MV Area PHT 3.1 cm squared Mitral E to A Ratio 0.5 MV E' Velocity 32.5 cm/s Mitral E to MV E' Ratio 8.7 Mitral E to LV E' Lateral Ratio 7.2 Mitral E to LV E' Septal Ratio 11.0 TR Peak Velocity 228.6 cm/s TR Peak Gradient 20.9 mmHg TR Mean Velocity 183.4 cm/s TR Mean Gradient 14.6 mmHg TR Velocity Time Integral 45.9 cm TV Peak E Velocity 76.0 cm/s Right Atrial Pressure 3.0 mmHg Pulmonary Artery Systolic Pressu 23.9 mmHg PV Peak Velocity 99.0 cm/s FINDINGS Left Ventricle Left ventricle is normal in size. LV systolic function is normal with EF 50 to 55%. No regional wall motion abnormalities are seen. Grade 1 disatolic dysfunction. Right Ventricle Normal in size and function Right Atrium Normal in size Left Atrium Dilated Mitral Valve Mild mitral annular calcification. Mild mitral regurgitation. Aortic Valve Structurally normal aortic valve. Mild aortic regurgitation. Tricuspid Valve Mild tricuspid regurgitation . pulmonary artery systolic pressure is normal Pulmonic Valve Not well-visualized Pericardium Normal Aorta Normal in size IVC Appears to be normal CONCLUSIONS LV systolic function is normal with EF of 50 to 55%. Grade 1 diastolic dysfunction Left atrial dilation Mild mitral regurgitation Mild aortic regurgitation Mild tricuspid regurgitation Compared to prior echocardiogram from 2021, no significant changes are seen Christoph Bustos MD (Electronically Signed) Final Date: 17 August 2022 11:59 S
== END 2022-08-14 07:23 | disposition home or self-care (01) ==
LOC: RAD 07:32
PROVIDERS: PCP Family Medicine; Visit Provider Internal Medicine
DX: I08.3 Combined rheumatic disorders of mitral, aortic and tricuspid valves (principal); R06.02 Shortness of breath; R07.9 Chest pain, unspecified
CPT/HCPCS: 80053; 80061; 83735; 83880; 84443; 85025; 93306

== ENCOUNTER → 2022-09-20 08:47 | Outpatient (BNVA) | payer MEDICARE, SELFPAY | PROVIDERS: PCP Family Medicine; Visit Provider Otolaryngology | DX: H61.23 Impacted cerumen, bilateral (principal); H69.81 Other specified disorders of Eustachian tube, right ear; I48.91 Unspecified atrial fibrillation; R06.00 Dyspnea, unspecified; I13.0 Hypertensive heart and chronic kidney disease with heart failure and stage 1 through stage 4 chronic kidney disease, or unspecified chronic kidney disease; I50.9 Heart failure, unspecified; N18.2 Chronic kidney disease, stage 2 (mild) | CPT/HCPCS: 69210; 99213; 99214 ==

== ENCOUNTER 2022-10-22 08:52 | Outpatient (CLI) | payer MEDICARE, SELFPAY ==
--- NOTE | 2022-10-22 09:08 | US_ITS ---
WS: [id number] ULTRASOUND RENAL TECHNIQUE: Ultrasound examination of both kidneys. CLINICAL INFORMATION: STAGE 3A CHRONIC KIDNEY DZ COMPARISON: CT 03/24/2020 FINDINGS: Simple bilateral renal cysts largest in the right kidney measuring 2.7 x 2.5 x 2.3 cm. Smal ler left renal cyst measure 1.3 x 1.3 cm. RIGHT: Right kidney demonstrates mild renal cortical atrophy Echogenicity: Normal. Cortical thickness: 1.3 cm; Normal. Hydronephrosis: None. Perinephric fluid: None. Right kidney measures: 10.3 cm x 3.7 cm x 4.9 cm. LEFT: Left kidney demonstrates mild renal cortical atrophy echogenicity: Normal. Cortical thickness: 1.1 cm; Normal. Hydronephrosis: None. Perinephric fluid: None. Left kidney measures: 10.9 cm x 4.5 cm x 5.4 cm. Normal visualized aorta.Enlarged prostate measuring 4.5 x 4.4 cm. Recommend correlation PSA. Normal b ladder. IMPRESSION: 1. No hydronephrosis in either kidney. Mild renal cortical atrophy. 2. Simple bilateral renal cysts. 3. Enlarged prostate measuring 4.5 x 4.4 cm. Recommend correlation PSA.
== END 2022-10-22 08:53 | disposition home or self-care (01) ==
PROVIDERS: PCP Family Medicine; Visit Provider Internal Medicine Nephrology
DX: N18.31 Chronic kidney disease, stage 3a (principal)
CPT/HCPCS: 76770

== ENCOUNTER → 2022-11-01 08:47 | Outpatient (BNVA) | payer MEDICARE, SELFPAY | PROVIDERS: PCP Family Medicine; Visit Provider Otolaryngology | DX: H61.23 Impacted cerumen, bilateral (principal); H69.81 Other specified disorders of Eustachian tube, right ear; H65.21 Chronic serous otitis media, right ear | CPT/HCPCS: 69210; 99213 ==

== ENCOUNTER → 2022-11-15 08:22 | Outpatient (BNVA) | payer MEDICARE, SELFPAY | PROVIDERS: PCP Family Medicine; Visit Provider Otolaryngology | DX: H70.11 Chronic mastoiditis, right ear (principal); H69.81 Other specified disorders of Eustachian tube, right ear | CPT/HCPCS: 99213 ==

== ENCOUNTER → 2022-11-29 09:15 | Outpatient (BNVA) | payer MEDICARE, SELFPAY | PROVIDERS: PCP Family Medicine; Visit Provider Otolaryngology | DX: H70.11 Chronic mastoiditis, right ear (principal); H69.81 Other specified disorders of Eustachian tube, right ear | CPT/HCPCS: 99213 ==

== ENCOUNTER → 2022-12-11 08:16 | Outpatient (BNVA) | payer MEDICARE, SELFPAY | PROVIDERS: PCP Family Medicine; Visit Provider Otolaryngology | DX: H70.11 Chronic mastoiditis, right ear (principal); H69.81 Other specified disorders of Eustachian tube, right ear | CPT/HCPCS: 99213 ==

== ENCOUNTER → 2022-12-23 09:14 | Outpatient (BNVA) | payer MEDICARE, SELFPAY | PROVIDERS: PCP Family Medicine; Visit Provider Otolaryngology | DX: H70.11 Chronic mastoiditis, right ear (principal); H69.81 Other specified disorders of Eustachian tube, right ear | CPT/HCPCS: 99212; 99213 ==

== ENCOUNTER → 2023-01-24 10:31 | Outpatient (BNVA) | payer MEDICARE, SELFPAY | PROVIDERS: PCP Family Medicine; Visit Provider Nurse Practitioner Family | DX: I48.91 Unspecified atrial fibrillation (principal); Z79.01 Long term (current) use of anticoagulants; I13.0 Hypertensive heart and chronic kidney disease with heart failure and stage 1 through stage 4 chronic kidney disease, or unspecified chronic kidney disease; N18.9 Chronic kidney disease, unspecified; I50.9 Heart failure, unspecified; I25.118 Atherosclerotic heart disease of native coronary artery with other forms of angina pectoris; R00.2 Palpitations | CPT/HCPCS: 36415; 80048; 83880; 99214 ==

== ENCOUNTER 2023-01-28 09:46 | Outpatient (CLI) | payer MEDICARE, SELFPAY ==
--- NOTE | 2023-01-28 10:00 | USCV_ITS ---
Jeremiah Blackwell Age: 82 Gender: M : 1940 Exam Date: 01/28/2023 10:01 Ordering Phys: Judy Gama Technologist: CT Exam Location: [facility] [place] Indication: BP: 121 / 66 HR: 55 Rhythm: Sinus Technical Quality: Adequate MEASUREMENTS (Male / Female) Normal Values 2D ECHO LVOT Diameter 2.2 cm LV Ejection Fraction MOD 2C 50.8 % LV Ejection Fraction 2C AL 51.1 % LA Diameter 4.4 cm Aorta at Sinotubular Diameter 3.0 cm M-MODE Aortic Annulus Diameter 4.0 cm LA Ao Ratio MM 1.2 MV E Point Septal Separation 1.4 cm FINDINGS Left Ventricle Study is limited to 2D examination. Relatively poor quality. The ventricle appears to be normal in size and function. There is a sigmoid septum. The ejection fraction is estimated at 55 to 60% Right Ventricle Normal right ventricular size and systolic function. Right Atrium The right atrium is normal in size. Left Atrium The left atrium is normal in size. Mitral Valve Mitral valve not well seen. Appears normal in structure. Aortic Valve Normal in structure. Tricuspid Valve Normal in structure. Pulmonic Valve Pulmonic valve not well visualized. Pericardium Normal pericardium without effusion. Aorta Normal ascending aorta dimension. IVC The inferior vena cava appears normal. CONCLUSIONS Study is limited to 2D examination. Relatively poor quality. The ventricle appears to be normal in size and function. There is a sigmoid septum. The ejection fraction is estimated at 55 to 60%. Previous echo done 4 months [address] No change. Dr. Cm Ambriz MD (Electronically Signed) Final Date: 28 January 2023 15:44 S
== END 2023-01-28 09:47 | disposition home or self-care (01) ==
LOC: RAD 09:46
PROVIDERS: PCP Family Medicine; Visit Provider Nurse Practitioner Family
DX: I25.118 Atherosclerotic heart disease of native coronary artery with other forms of angina pectoris (principal); I48.91 Unspecified atrial fibrillation; I50.9 Heart failure, unspecified; Q21.8 Other congenital malformations of cardiac septa
CPT/HCPCS: 93308

== ENCOUNTER → 2023-01-29 10:58 | Outpatient (BNVA) | payer MEDICARE, SELFPAY | PROVIDERS: PCP Family Medicine; Visit Provider Family Medicine | DX: R53.83 Other fatigue (principal); N18.9 Chronic kidney disease, unspecified; I10 Essential (primary) hypertension; I48.91 Unspecified atrial fibrillation; I50.9 Heart failure, unspecified; N18.2 Chronic kidney disease, stage 2 (mild) | CPT/HCPCS: 82607; 84443; 85025; 86140 ==

== ENCOUNTER → 2023-02-24 08:59 | Outpatient (BNVA) | payer MEDICARE, SELFPAY | PROVIDERS: PCP Family Medicine; Visit Provider Nurse Practitioner Family | DX: I25.118 Atherosclerotic heart disease of native coronary artery with other forms of angina pectoris (principal); I13.0 Hypertensive heart and chronic kidney disease with heart failure and stage 1 through stage 4 chronic kidney disease, or unspecified chronic kidney disease; N18.9 Chronic kidney disease, unspecified; I50.22 Chronic systolic (congestive) heart failure; Z79.01 Long term (current) use of anticoagulants | CPT/HCPCS: 99214 ==

== ENCOUNTER 2023-04-17 10:15 | Outpatient (CLI) | payer MEDICARE, SELFPAY ==
[2023-04-17 10:52] LABS: Basophils % 0.8 %; Eosinophils # 0.2 10^3/uL (0.0-0.8); Eosinophils % 2.8 %; Lymphocytes # 1.7 10^3/uL (0.8-4.8); Lymphocytes % 32.5 %; Mean Corpuscular HGB Conc 34.1 g/dL (30-55); Mean Corpuscular Hemoglobin 29.8 pg (27-33); Mean Corpuscular Volume 87.3 fl (82-101); Mean Platelet Volume 10.5 fL (7.4-10.4); Monocytes # 0.4 10^3/uL (0.2-0.9); Monocytes % 8.1 %; Neutrophils # 2.94 10^3/uL (1.8-7.7); Neutrophils % 55.4 %; Nucleated Red Blood Cells % 0 %; Platelet Count 162 10^3/cmm (157-399); Red Blood Count 5.04 10^6/uL (3.85-5.65); Red Cell Distribution Width 12.7 % (12.1-15.1)
[2023-04-17 11:23] LABS: Calcium 9.7 mg/dL (8.5-10.5)
[2023-04-17 11:39] LABS: 25 Hydroxy Vitamin D 49 ng/mL (30-100); Anion Gap 13.8 (5-19); Blood Urea Nitrogen 19 mg/dL (8-23); Calcium 9.6 mg/dL (8.5-10.5); Carbon Dioxide 24 mmol/L (22-29); Chloride 105 mmol/L (98-107); Glucose 107 mg/dL (65-115); Phosphorus 2.5 mg/dL (2.5-4.5); Potassium 3.8 mmol/L (3.5-5.1); Sodium 139 mmol/L (136-145)
== END 2023-04-17 10:16 | disposition home or self-care (01) ==
LOC: LAB 10:18
PROVIDERS: PCP Family Medicine; Visit Provider Internal Medicine Nephrology
DX: N18.31 Chronic kidney disease, stage 3a (principal)
CPT/HCPCS: 36415; 80069; 82306; 82310; 83970; 85025

== ENCOUNTER → 2023-04-28 10:16 | Outpatient (BNVA) | payer MEDICARE, SELFPAY | PROVIDERS: PCP Family Medicine; Visit Provider Otolaryngology | DX: H61.22 Impacted cerumen, left ear (principal); H70.11 Chronic mastoiditis, right ear; H69.81 Other specified disorders of Eustachian tube, right ear | CPT/HCPCS: 69210; 99213 ==

== ENCOUNTER → 2023-09-10 11:28 | Outpatient (BNVA) | payer MEDICARE, SELFPAY | PROVIDERS: PCP Family Medicine; Referring Provider Family Medicine; Visit Provider Surgery | DX: K21.9 Gastro-esophageal reflux disease without esophagitis (principal) | CPT/HCPCS: 99204 ==

== ENCOUNTER → 2023-09-19 10:40 | Outpatient (BNVA) | payer MEDICARE, SELFPAY | PROVIDERS: PCP Family Medicine; Visit Provider Emergency Medicine | DX: R39.9 Unspecified symptoms and signs involving the genitourinary system (principal); R31.0 Gross hematuria; N10 Acute pyelonephritis; R31.9 Hematuria, unspecified | CPT/HCPCS: 81000; 85018; 87086 ==

== ENCOUNTER → 2023-10-06 09:35 | Outpatient (BNVA) | payer MEDICARE, SELFPAY | PROVIDERS: PCP Family Medicine; Visit Provider Family Medicine | DX: N18.9 Chronic kidney disease, unspecified (principal) | CPT/HCPCS: 81000 ==

== ENCOUNTER 2023-10-07 07:22 | Day surgery (SDC) | payer MEDICARE, SELFPAY ==
--- NOTE | 2023-10-07 06:13 | W.PM.OPSUD ---
Surgery/Procedure H&P Update DATE OF PROCEDURE: October 07, 2023 DATE H&P PERFORMED: 09/10/23 H&P UPDATE INFORMATION: I have reviewed H&P completed within last 30 days, I have examined patient prior to procedure, No changes to prior documentation and H&P is in [facility] [place] EMR on date indicated PLANNED PROCEDURE: Operation Date: 10/07/23 08:30 Proposed Procedures p EGD 48282, K21.9(Not Applicable) - Keagan Villavicencio MD
[2023-10-07 07:31] VITALS: BMI 33.6
[2023-10-07] MEDS: sodium chloride 0.9% 1,000 ML 30 ML IV (07:39)
[2023-10-07 07:40] VITALS: BP 151/76; PULSE 60; RESP 18; TEMP 36.3; O2SAT 96
--- NOTE | 2023-10-07 08:03 | P.ANESASSM_ITS ---
Documented by User: Jaida SullivanEDDIE 10/07/23 08:27 Pre-Anesthetic Assessment Height/Weight: Height 1.6 m Weight 86.183 kg Temp Pulse Resp BP Pulse Ox O2 Del Method 97.3 F L 60 18 151/76 96 Room Air 10/07/23 07:40 10/07/23 07:40 10/07/23 07:40 10/07/23 07:40 10/07/23 07:40 10/07/23 07:40 Preop Diagnosis: GERD Operation Date: 10/07/23 08:30 Proposed Procedures p EGD 78275, K21.9(Not Applicable) - Keagan Villavicencio MD Familial anesthetic complications: none Was Beta Luis taken within 24 hours: Yes Last intake: Intake Last Liquid Date 10/06/23 Last Liquid Time 21:00 Last Solid Date 10/06/23 Last Solid Time 21:00 Social No alcohol and No tobacco Exam alert, oriented x 3, clear to auscultation bilaterally and regular rate & rhythm Airway Submandibular: within normal limits Cervical ROM: within normal limits Mallampati: Class III Dentition: full Pulmonary Sleep Apnea (cpap compliant) and Shortness of Breath CV/HEM Atrial Fibrillation, Coronary Artery Disease, Congestive Heart Failure, Hypertension and Myocardial Infarction denies chest pain. multiple heart stents last in 2019. CABG 1999 ECHO CONCLUSIONS 02/06/23 Study is limited to 2D examination. Relatively poor quality. The ventricle appears to be normal in size and function. There is a sigmoid septum. The ejection fraction is estimated at 55 to 60%. Previous echo done 4 months ago. No change. 08/06 ECHO CONCLUSIONS LV systolic function is normal with EF of 50 to 55%. Grade 1 diastolic dysfunction Left atrial dilation Mild mitral regurgitation Mild aortic regurgitation Mild tricuspid regurgitation Compared to prior echocardiogram from 2021, no significant changes are seen Chronic Renal Insufficiency creatinine 1.3 Hepatic Hepatitis (infectious hepatitis cleared as teenager.) GI Gastroesophageal Reflux Disease abdominal pain. Metabolic Hyperlipidemia Musc/skel Weakness Activity intolerance METS<4. SOB weakness multiple cardiac work ups done in the last year no intervention adviced. Cardiac follow up 6 months prior will see them next month. Neuropsych None reported Anesthetic Plan ASA status: 4 Anesthesia: MAC Other: Lengthy discussion with patient regarding cardiac risk profile given history and activity intolerance. States Dr. Villavicencio spoke with his Psychology Associate for clearance. Discussed risk vs. benefit of EGD patient wishes to proceed. He states further interventions for cardiac optimization is not a option for him (CABG vs . Cardiac stents) no further optimization identified. Medications/Allergies Home Medications Medication Instructions Recorded Confirmed Last Taken Type omega 0-xqx-xhv-fish oil 300 1 cap PO DAILY 01/27/20 10/02/23 10/05/23 History mg-1,000 mg capsule (Fish Oil) vitamin B complex (B 1 tab PO DAILY 01/27/20 10/07/23 10/06/23 History Complex-Vitamin B12 tablet) cholecalciferol (vitamin D3) 75 75 mcg PO DAILY 04/03/20 10/02/23 10/06/23 History mcg (3,000 unit) tablet multivitamin 1 cap PO BID 04/03/20 10/02/23 10/01/23 History saw palmetto 160 mg capsule 160 mg PO DAILY 09/13/20 10/02/23 10/06/23 History nitroglycerin 0.4 mg sublingual See Rx Instructions .Route 03/06/22 10/07/23 Unknown Rx tablet .COMPLEX #25 tabs C-pap supplies #1 ea 06/28/22 09/19/23 Unknown Rx apixaban 2.5 mg tablet See Rx Instructions .Route .COMPLEX 07/26/22 10/02/23 10/03/23 History atorvastatin 10 mg tablet 10 mg PO DAILY #90 tabs 11/28/22 10/02/23 10/06/23 Rx metoprolol succinate 25 mg 12.5 mg (1/2 x 25 mg) PO DAILY #45 03/13/23 10/02/23 10/01/23 Rx tablet,extended release 24 hr tabs isosorbide mononitrate 30 mg 30 mg PO BID #180 tabs 03/26/23 10/02/23 10/07/23 Rx tablet,extended release 24 hr magnesium oxide 400 mg PO DAILY 04/28/23 10/02/23 10/06/23 History amlodipine 5 mg tablet 5 mg PO DAILY 10/02/23 10/02/23 10/01/23 History clopidogrel 75 mg tablet 75 mg PO DAILY 10/02/23 10/02/23 10/04/23 History furosemide 40 mg tablet 40 mg PO BID 10/02/23 10/02/23 10/06/23 History losartan 100 mg tablet 100 mg PO DAILY 10/02/23 10/02/23 10/06/23 History potassium chloride 20 mEq See Rx Instructions .Route .COMPLEX 10/02/23 10/02/23 10/06/23 History tablet,extended release zinc 50 mg capsule 50 mg PO DAILY 10/02/23 10/02/23 10/06/23 History Allergies Allergy/AdvReac Type Severity Reaction Status Date / Time morphine Allergy RAPID Verified 10/07/23 07:34 PULSE, NUMBNESS temazepam Allergy ADV-Weaknes Verified 10/07/23 07:34 s ranolazine [From Ranexa] AdvReac Severe hypotension, Verified 10/07/23 07:34 weakness, shortness of breath Current Medications Generic Name Dose Route Start Last Admin Trade Name Freq PRN Reason Stop Dose Admin Sodium Chloride 1,000 mls @ 30 mls/hr 10/07/23 07:30 10/07/23 07:39 Sodium Chloride 0.9% IV 10/08/23 07:29 30 mls/hr .Q24H AMADO Administration PFSH Anesthesia Medical History Shortness of breath Mitral valve regurgitation Aortic insufficiency CKD (chronic kidney disease) Fatigue Atherosclerotic heart disease of [place] coronary artery with other forms of angina pectoris Atrial fibrillation CHF (congestive heart failure) History of myocardial infarction 2010 s/p stent Arteriosclerotic cardiovascular disease Hyperlipidemia, unspecified Essential (primary) hypertension Chest pain, unspecified Surgical History S/P right coronary artery (RCA) stent placement 07/27/2019 SVG to RCA chronic occlusion SVG to OM S/P CABG x 4 QUICK to LAD, SVG to circumflex and obtuse marginal, SVG to RCA in 1999, [place], [place] Family History Brother CAD (coronary artery disease) Hypertension Stroke Father CAD (coronary artery disease) Stroke Mother CAD (coronary artery disease) Hypertension Stroke Social History Smoking and tobacco/nicotine status: never used tobacco/nicotine Alcohol intake: never Substance/Drug Use: never Lives independently: Yes Household members: spouse Marital status: Current occupational status: retired Do you think of yourself as: Straight/Heterosexual Current gender identity: Male Data Anesthesia 10/07/23 08:23 Cardiac Studies: 2 Echocardiogram 08/14/22 Echocardiogram Limited Views 01/28/23 Echocardiogram Ultrasound 02/21/20 Transesophageal Echocardiogram 05/26/20 Sestamibi Stress Test (Cardiology) 06/13 Cardiac Event Monitor 01/24/23 Holter Monitor 12/29/19 Documented by User: Chrissy Brice CRNA 10/07/23 08:37 Pre-Anesthetic Assessment Anesthetic Plan Other: Lengthy discussion with patient regarding cardiac risk profile given history and activity intolerance. Dr. Hood called and cardiac clearance given. Discussed risk vs. benefit of EGD patient wishes to proceed. He states further interventions for cardiac optimization is not a option for him (CABG vs . Cardiac stents) no further optimization identified. Medications/Allergies Home Medications Medication Instructions Recorded Confirmed Last Taken Type omega 7-jpd-fvb-fish oil 300 1 cap PO DAILY 01/27/20 10/02/23 10/05/23 History mg-1,000 mg capsule (Fish Oil) vitamin B complex (B 1 tab PO DAILY 01/27/20 10/07/23 10/06/23 History Complex-Vitamin B12 tablet) cholecalciferol (vitamin D3) 75 75 mcg PO DAILY 04/03/20 10/02/23 10/06/23 History mcg (3,000 unit) tablet multivitamin 1 cap PO BID 04/03/20 10/02/23 10/01/23 History saw palmetto 160 mg capsule 160 mg PO DAILY 09/13/20 10/02/23 10/06/23 History nitroglycerin 0.4 mg sublingual See Rx Instructions .Route 03/06/22 10/07/23 Unknown Rx tablet .COMPLEX #25 tabs C-pap supplies #1 ea 06/28/22 09/19/23 Unknown Rx apixaban 2.5 mg tablet See Rx Instructions .Route .COMPLEX 07/26/22 10/02/23 10/03/23 History atorvastatin 10 mg tablet 10 mg PO DAILY #90 tabs 11/28/22 10/02/23 10/06/23 Rx metoprolol succinate 25 mg 12.5 mg (1/2 x 25 mg) PO DAILY #45 03/13/23 10/02/23 10/01/23 Rx tablet,extended release 24 hr tabs isosorbide mononitrate 30 mg 30 mg PO BID #180 tabs 03/26/23 10/02/23 10/07/23 Rx tablet,extended release 24 hr magnesium oxide 400 mg PO DAILY 04/28/23 10/02/23 10/06/23 History amlodipine 5 mg tablet 5 mg PO DAILY 10/02/23 10/02/23 10/01/23 History clopidogrel 75 mg tablet 75 mg PO DAILY 10/02/23 10/02/23 10/04/23 History furosemide 40 mg tablet 40 mg PO BID 10/02/23 10/02/23 10/06/23 History losartan 100 mg tablet 100 mg PO DAILY 10/02/23 10/02/23 10/06/23 History potassium chloride 20 mEq See Rx Instructions .Route .COMPLEX 10/02/23 10/02/23 10/06/23 History tablet,extended release zinc 50 mg capsule 50 mg PO DAILY 10/02/23 10/02/23 10/06/23 History Allergies Allergy/AdvReac Type Severity Reaction Status Date / Time morphine Allergy RAPID Verified 10/07/23 07:34 PULSE, NUMBNESS temazepam Allergy ADV-Weaknes Verified 10/07/23 07:34 s ranolazine [From Ranexa] AdvReac Severe hypotension, Verified 10/07/23 07:34 weakness, shortness of breath [facility] Anesthesia Medical History Shortness of breath Mitral valve regurgitation Aortic insufficiency CKD (chronic kidney disease) Fatigue Atherosclerotic heart disease of [place] coronary artery with other forms of angina pectoris Atrial fibrillation CHF (congestive heart failure) History of myocardial infarction 2010 s/p stent Arteriosclerotic cardiovascular disease Hyperlipidemia, unspecified Essential (primary) hypertension Chest pain, unspecified Surgical History S/P right coronary artery (RCA) stent placement 07/27/2019 SVG to RCA chronic occlusion SVG to OM S/P CABG x 4 QUICK to LAD, SVG to circumflex and obtuse marginal, SVG to RCA in 1999, [place] Family History Brother CAD (coronary artery disease) Hypertension Stroke Father CAD (coronary artery disease) Stroke Mother CAD (coronary artery disease) Hypertension Stroke Social History Smoking and tobacco/nicotine status: never used tobacco/nicotine Alcohol intake: never Substance/Drug Use: never Lives independently: Yes Household members: spouse Marital status: Current occupational status: retired Do you think of yourself as: Straight/Heterosexual Current gender identity: Male Data Anesthesia 10/07/23 08:23 Cardiac Studies: 2 Echocardiogram 08/14/22 Echocardiogram Limited Views 01/28/23 Echocardiogram Ultrasound 02/21/20 Transesophageal Echocardiogram 05/26/20 Sestamibi Stress Test (Cardiology) 06/13 Cardiac Event Monitor 01/24/23 Holter Monitor 12/29/19
[2023-10-07 08:47] LABS: Alanine Aminotransferase 31 U/L (0-41); Albumin Level 3.7 g/dL (3.5-5.2); Alkaline Phosphatase 69 U/L (40-130); Anion Gap 16.6 (5-19); Aspartate Amino Transferase 22 U/L (0-40); Blood Urea Nitrogen 15 mg/dL (8-23); Calcium 8.5 mg/dL (8.5-10.5); Carbon Dioxide 20 mmol/L (22-29); Chloride 106 mmol/L (98-107); Creatinine Clr Calc Pharmacy 46.0598; Globulin 2.8 g/dL (1.3-4.6); Glucose 125 mg/dL (65-115); Osmolality Calculated 290 mOsm/kg (285-295); Potassium 3.6 mmol/L (3.5-5.1); Sodium 139 mmol/L (136-145); Total Bilirubin 0.8 mg/dL (0.15-1.2); Total Protein 6.5 g/dL (6.6-8.7)
[2023-10-07 09:38] VITALS: BP 121/77; PULSE 64; RESP 14; TEMP 36.3; O2SAT 95
[2023-10-07 09:48] VITALS: BP 123/70; PULSE 66; RESP 16; O2SAT 93
--- NOTE | 2023-10-07 10:05 | ANE.PACU2 ---
Inpatient post-anesthesia follow up: Airway intact: Yes Vital signs: Temperature 97.3 F Pulse Rate 66 Respiratory Rate 16 Blood Pressure 123/70 Pulse Oximetry 93 Oxygen Delivery Me thod Room Air Oxygen Flow Rate 4 Fraction of Inspir ed Oxygen Hydration adequate: Yes Nausea and vomiting: No Pain level: 1 Mental status: Baseline
== END 2023-10-07 10:07 | disposition home or self-care (01) ==
PROVIDERS: PCP Family Medicine; Visit Provider Surgery
PROC: 0DJ08ZZ Inspection of Upper Intestinal Tract, Via Natural or Artificial Opening Endoscopic (ICD-10-PCS; CPT 43235; principal; 2023-10-07 08:30)
DX: K21.9 Gastro-esophageal reflux disease without esophagitis (principal); K29.80 Duodenitis without bleeding; K20.90 Esophagitis, unspecified without bleeding; K29.70 Gastritis, unspecified, without bleeding; I48.91 Unspecified atrial fibrillation; I11.0 Hypertensive heart disease with heart failure; I50.9 Heart failure, unspecified; I25.2 Old myocardial infarction; Z95.1 Presence of aortocoronary bypass graft; Z95.5 Presence of coronary angioplasty implant and graft; Z86.19 Personal history of other infectious and parasitic diseases; E78.5 Hyperlipidemia, unspecified
CPT/HCPCS: 43239; 80053; 88305; J2704; J7030

== ENCOUNTER → 2023-10-24 08:17 | Outpatient (BNVA) | payer MEDICARE, SELFPAY | PROVIDERS: PCP Family Medicine; Visit Provider Surgery | DX: Z09 Encounter for follow-up examination after completed treatment for conditions other than malignant neoplasm (principal) | CPT/HCPCS: 99213 ==

== ENCOUNTER → 2023-11-03 13:16 | Outpatient (BNVA) | payer MEDICARE, SELFPAY | PROVIDERS: PCP Family Medicine; Visit Provider Internal Medicine | DX: R06.09 Other forms of dyspnea (principal); R06.00 Dyspnea, unspecified; I48.91 Unspecified atrial fibrillation; I13.0 Hypertensive heart and chronic kidney disease with heart failure and stage 1 through stage 4 chronic kidney disease, or unspecified chronic kidney disease; I50.42 Chronic combined systolic (congestive) and diastolic (congestive) heart failure; N18.2 Chronic kidney disease, stage 2 (mild) | CPT/HCPCS: 99214 ==

== ENCOUNTER → 2024-04-22 09:59 | Outpatient (BNVA) | payer MEDICARE, SELFPAY | PROVIDERS: PCP Family Medicine; Visit Provider Family Medicine | DX: N18.2 Chronic kidney disease, stage 2 (mild) (principal) | CPT/HCPCS: 80069; 82043; 82310; 83970; 85025 ==

== ENCOUNTER → 2024-05-10 14:50 | Outpatient (BNVA) | payer MEDICARE, SELFPAY | PROVIDERS: PCP Family Medicine; Visit Provider Internal Medicine | DX: I13.0 Hypertensive heart and chronic kidney disease with heart failure and stage 1 through stage 4 chronic kidney disease, or unspecified chronic kidney disease (principal); I50.42 Chronic combined systolic (congestive) and diastolic (congestive) heart failure; N18.2 Chronic kidney disease, stage 2 (mild); R06.00 Dyspnea, unspecified; I48.91 Unspecified atrial fibrillation; I34.0 Nonrheumatic mitral (valve) insufficiency; Z87.891 Personal history of nicotine dependence; Z95.1 Presence of aortocoronary bypass graft | CPT/HCPCS: 36415; 80048; 83880; 99214 ==

== ENCOUNTER 2024-05-31 08:17 | Outpatient (CLI) | payer MEDICARE, SELFPAY ==
[2024-05-31 09:41] LABS: Blood Urea Nitrogen 19 mg/dL (8-23); Calcium 9.4 mg/dL (8.5-10.5); Carbon Dioxide 23 mmol/L (22-29); Chloride 104 mmol/L (98-107); Glucose 181 mg/dL (65-115); NT Pro B Type Natriuretic Pept 399 pg/mL (0-450); Osmolality Calculated 299 mOsm/kg (285-295); Sodium 141 mmol/L (136-145)
[2024-05-31 09:42] LABS: Anion Gap 18.3 (5-19); Potassium 4.3 mmol/L (3.5-5.1)
== END 2024-05-31 08:18 | disposition home or self-care (01) ==
LOC: LAB 08:18
PROVIDERS: PCP Family Medicine; Visit Provider Internal Medicine
DX: I50.42 Chronic combined systolic (congestive) and diastolic (congestive) heart failure (principal); I48.91 Unspecified atrial fibrillation
CPT/HCPCS: 36415; 80048; 83880

== ENCOUNTER → 2024-06-01 14:20 | Outpatient (BNVA) | payer MEDICARE, SELFPAY | PROVIDERS: PCP Family Medicine; Visit Provider Family Medicine | DX: I50.42 Chronic combined systolic (congestive) and diastolic (congestive) heart failure (principal); I48.91 Unspecified atrial fibrillation | CPT/HCPCS: 87077; 87086; 87184 ==

== ENCOUNTER 2024-06-11 06:42 | Outpatient (CLI) | payer MEDICARE, SELFPAY ==
--- NOTE | 2024-06-11 07:00 | USCV_ITS ---
Jeremiah Blackwell Age: 83 Gender: M : 1940 Exam Date: 06/11/2024 06:55 Ordering Phys: Christoph Bustos M.D ([email or web address]) Technologist: Ced White Exam Location: [facility] [place] Indication: mitral regurg, sob BP: 105 / 58 HR: 58 Rhythm: Sinus Technical Quality: Adequate MEASUREMENTS (Male / Female) Normal Values 2D ECHO LV Diastolic Diameter PLAX 4.1 cm 4.2 - 5.9 / 3.9 - 5.3 cm IVS Diastolic Thickness 1.1 cm 0.6 - 1.0 / 0.6 - 0.9 cm IVS Systolic Thickness 1.4 cm LVPW Diastolic Thickness 1.0 cm 0.6 - 1.0 / 0.6 - 0.9 cm LVPW Systolic Thickness 1.0 cm LVOT Diameter 2.1 cm LV Ejection Fraction 2D Teich 66.2 % LV Ejection Fraction MOD 4C 49.0 % LV Ejection Fraction MOD 2C 59.2 % LV Ejection Fraction 2C AL 59.7 % LA Diameter 4.2 cm RA Systolic Volume 4C AL 31.4 ml RA Systolic Volume 4C MOD 30.4 ml LA Sys Volume AL 34.6 cm cubed LA Sys Volume Index AL 17.4 cm cubed/m squared Aorta at Sinotubular Diameter 2.7 cm IVC Diameter 1.7 cm M-MODE LA Ao Ratio MM 1.3 AV Cusp Separation MM 2.0 cm DOPPLER AV Peak Velocity 147.0 cm/s LVOT Peak Velocity 92.0 cm/s AV Area Cont Eq vti 2.1 cm squared AV Area Cont Eq pk 2.1 cm squared MV Peak Velocity 102.3 cm/s MV Area PHT 3.2 cm squared Mitral E to A Ratio 0.8 TV Peak Velocity 163.0 cm/s TR Peak Velocity 250.0 cm/s TR Peak Gradient 25.0 mmHg TR Mean Velocity 192.0 cm/s TR Mean Gradient 15.5 mmHg TR Velocity Time Integral 82.2 cm PV Peak Velocity 81.0 cm/s RV Ejection Time 0.3 s FINDINGS Left Ventricle Left ventricle is normal in size. LV systolic function is borderline normal with EF of 50-55%. No regional wall motion abnormalities are seen. Grade 1 diastolic dysfunction Right Ventricle Normal in size and function Right Atrium Normal in size Left Atrium Normal in size Mitral Valve Mild mitral annular calcification. Trace mitral regurgitation. Aortic Valve Structurally normal aortic valve. No significant stenosis. Mild aortic regurgitation. Tricuspid Valve Mild tricuspid regurgitation. Pulmonary artery systolic pressure is normal. Pulmonic Valve Trace pulmonic regurgitation. Pericardium Normal Aorta Normal in size IVC Not well visualized CONCLUSIONS LV systolic function is borderline normal with EF of 50 to 55%. Grade 1 diastolic dysfunction. Trace mitral regurgitation. Mild aortic regurgitation Mild tricuspid regurgitation Trace pulmonic regurgitation. Compared to prior echocardiogram from 2022, no significant changes are seen Christoph Bustos MD (Electronically Signed) Final Date: 22 June 2024 12:58 S
== END 2024-06-11 06:43 | disposition home or self-care (01) ==
PROVIDERS: PCP Family Medicine; Visit Provider Internal Medicine
DX: R06.02 Shortness of breath (principal); I34.0 Nonrheumatic mitral (valve) insufficiency; R93.1 Abnormal findings on diagnostic imaging of heart and coronary circulation; I34.81 Nonrheumatic mitral (valve) annulus calcification; I35.1 Nonrheumatic aortic (valve) insufficiency; I07.1 Rheumatic tricuspid insufficiency
CPT/HCPCS: 93306

== ENCOUNTER 2024-10-21 12:10 | Outpatient (CLI) | payer MEDICARE, SELFPAY ==
[2024-10-21 12:45] LABS: Hematocrit 41.6 % (37-53); Hemoglobin 14.10 g/dL (11.27-16.99); Mean Corpuscular HGB Conc 33.9 g/dL (30-55); Mean Corpuscular Hemoglobin 29.0 pg (27-33); Mean Corpuscular Volume 85.6 fl (82-101); Nucleated Red Blood Cells % 0 %; Platelet Count 149 10^3/cmm (157-399); Red Blood Count 4.86 10^6/uL (3.85-5.65); White Blood Count 5.31 10^3/uL (3.29-11.43)
[2024-10-21 13:01] LABS: Albumin Level 4.1 g/dL (3.5-5.2); Anion Gap 15.6 (5-19); Blood Urea Nitrogen 16 mg/dL (8-23); Calcium 9.0 mg/dL (8.5-10.5); Carbon Dioxide 23 mmol/L (22-29); Chloride 107 mmol/L (98-107); Glucose 190 mg/dL (65-115); Potassium 3.6 mmol/L (3.5-5.1); Sodium 142 mmol/L (136-145)
[2024-10-21 13:14] LABS: Creatinine Urine, Random 119 mg/dL (39-259); Microalbum Creatinine Ratio Ur 8 mg/dL (0-20)
== END 2024-10-21 12:11 | disposition home or self-care (01) ==
PROVIDERS: PCP Family Medicine; Visit Provider Registered Nurse
DX: N18.31 Chronic kidney disease, stage 3a (principal)
CPT/HCPCS: 80069; 82044; 85025

== ENCOUNTER → 2024-11-01 14:17 | Outpatient (BNVA) | payer MEDICARE, SELFPAY | PROVIDERS: PCP Family Medicine; Visit Provider Internal Medicine | DX: I13.0 Hypertensive heart and chronic kidney disease with heart failure and stage 1 through stage 4 chronic kidney disease, or unspecified chronic kidney disease (principal); N18.9 Chronic kidney disease, unspecified; I50.9 Heart failure, unspecified; I48.91 Unspecified atrial fibrillation; Z79.01 Long term (current) use of anticoagulants; Z95.5 Presence of coronary angioplasty implant and graft; I25.2 Old myocardial infarction | CPT/HCPCS: 99213 ==

== ENCOUNTER → 2024-11-30 11:03 | Outpatient (BNVA) | payer MEDICARE, SELFPAY | PROVIDERS: PCP Family Medicine; Visit Provider Family Medicine | DX: R73.9 Hyperglycemia, unspecified (principal) | CPT/HCPCS: 83036 ==

== ENCOUNTER → 2024-12-02 11:39 | Outpatient (BNVA) | payer MEDICARE, SELFPAY | PROVIDERS: PCP Family Medicine; Visit Provider Family Medicine | DX: R73.9 Hyperglycemia, unspecified (principal) | CPT/HCPCS: 83036 ==

== ENCOUNTER → 2025-02-23 09:44 | Outpatient (BNVA) | payer MEDICARE, SELFPAY | PROVIDERS: PCP Family Medicine; Visit Provider Family Medicine | DX: E11.9 Type 2 diabetes mellitus without complications (principal); I50.42 Chronic combined systolic (congestive) and diastolic (congestive) heart failure | CPT/HCPCS: 80053; 80061; 83036 ==